=== PATIENT | female | born 1995 | race Caucasian/White ===

== ENCOUNTER 2018-06-08 12:35 | Emergency (ER) | payer MEDICAID, SELFPAY ==
[2018-06-08 12:49] VITALS: BP 123/76; PULSE 61; RESP 18; TEMP 36.7; O2SAT 98
--- NOTE | 2018-06-08 13:54 | DI.REPORT_ITS ---
SYMPTOMS/DIAGNOSIS: COUGH, FEVER, ? PNEUMONIA CHEST X-RAY, PA AND LATERAL: No priors. The heart size and pulmonary vascular are within normal limits. There is a mild pectus excavatum deformity. The lungs are clear. No effusions or pneumothoraces are identified. The bones are intact. IMPRESSION: No acute pulmonary process.
--- NOTE | 2018-06-08 14:05 | ED.GENADUL ---
Disposition Clinical Impression: Sinusitis Disposition: HOME Condition: Stable Instructions: Sinusitis (ED) Additional Instructions: You may take ibuprofen and Flonase to help relieve your pain and discomfort. Otherwise take antibiotics until fully complete and follow-up with your primary care provider if not improving in the next week. Get plenty of rest and stay well-hydrated during illness. Prescriptions: Amoxicillin/Potassium Clav [Augmentin 875-125 Tablet] 1 each PO BID #14 tablet Referrals: Winter Mars, TACOS [Primary Care Provider] - 1 week (If not improving over the next week please follow-up with your primary care provider for reassessment.) Forms: Work Release Medical Decision Making - Radiology Data Radiology results: report reviewed, image reviewed - Medical Decision Making Patient presenting to the emergency department for chief complaint of worsening cold-like symptoms that are been going on for 14 days. Patient reports using multiple wrve-gwi-xwfnbgx pain medications. Physical exam is significant for sinus tenderness and anterior cervical lymphadenopathy. With patient stating worsening cough that is productive I do feel that radiological imaging of the chest may be beneficial to look for a slight pneumonia but lung sounds at this point are clear and vital signs are stable. Otherwise I feel that patient has a sinusitis that given a recurrence of fever after 10 days of symptoms I do feel that she would benefit from antibiotics. After review of chest x-ray that shows no acute findings patient was placed upon Augmentin twice daily for 1 week and recommended to take ibuprofen and Flonase for symptomatic control. Patient was given a work note for the next 2 days to allow the antibiotic to begin its effect. Patient was encouraged to follow-up with her primary care provider if not improving after the antibiotics are completed or to return for any new or worsening symptoms. After discussion of diagnosis and plan of care with patient patient agreed and stated no further needs, questions, or concerns at this time. History of Present Illness - General Chief complaint: RespSymp Stated complaint: PNEUMONIA Time Seen by Provider: 06/08/18 13:38 Source: patient, RN notes reviewed Mode of arrival: ambulatory Limitations: no limitations - History of Present Illness Initial comments: Patient reports 2 weeks ago she began having sinus pressure, congestion, earache, and sore throat. Then approximately 4 days ago she began worsening in her symptoms having fever and chills, significant malaise, and cough. Over the past couple days she has noticed a worsening cough, that is productive with yellow phlegm, and worsening sinus pressure. Patient reports taking multiple espm-dan-vukxjmu medications which have not provided her any relief of her symptoms. Onset/Timin -: week(s) Location: head, chest Severity scale (1-10): 6 Quality: aching Consistency: constant Improves with: none Worsens with: none Associated Symptoms: denies other symptoms Treatments Prior to Arrival: none - Related Data Acetaminophen [Tylenol] 650 mg PO Q4H PRN PRN tab 11/07/17 Amoxicillin/Potassium Clav [Augmentin 875-125 Tablet] 1 each PO BID #14 tablet 06/08/18 Allergies Allergy/AdvReac Type Severity Reaction Status Date / Time meperidine HCl [From Demerol] Allergy Intermediate Swelling/Ed Unverified 05/06/18 10:49 chaim Review of Systems Constitutional: see HPI Eyes: denies: eye discharge ENT: as per HPI, ear pain, throat pain, congestion Respiratory: cough, shortness of breath. denies: SOB with excertion, wheezing Cardiovascular: denies: chest pain Gastrointestinal: denies: abdominal pain, nausea Skin: denies: rash Past Medical History - Past Medical History Medical history: no medical history Surgical history: non-contributory - Social History Smoking status: current some day smoker Alcohol use: rarely Drug use: none Living Situation: lives with family General Exam - General Limitations: no limitations General appearance: alert, in no apparent distress - Head Head exam: Present: atraumatic, normocephalic - Eye Eye exam: Present: PERRL, EOMI. Absent: scleral icterus, conjunctival injection, nystagmus Pupils: Present: normal accommodation - ENT ENT exam: Present: normal orophraynx, mucous membranes moist, TM's normal bilaterally, normal external ear exam, other (Patient has significant frontal and maxillary sinus tenderness, nasal congestion) - Neck Neck exam: Present: full ROM, lymphadenopathy (Anterior cervical). Absent: meningismus - Respiratory Respiratory exam: Present: normal lung sounds bilaterally. Absent: respiratory distress, wheezes, rales, rhonchi, stridor - Cardiovascular Cardiovascular Exam: Present: regular rate, normal rhythm, normal heart sounds - Neurological Exam Neurological exam: Present: alert, oriented X3. Absent: altered - Skin Skin exam: Present: warm, dry, normal color. Absent: cyanosis, diaphoretic, pallor, mottled Course Vital Signs - 24 hr 06/08/18 12:49 Temperature 36.7 C Pulse 61 Respiratory 18 Rate Blood Pressure 123/76 Pulse Oximetry 98
--- NOTE | 2018-06-08 14:08 | ED.GENADUL_ITS ---
Disposition Clinical Impression: Sinusitis Disposition: HOME Condition: Stable Instructions: Sinusitis (ED) Additional Instructions: You may take ibuprofen and Flonase to help relieve your pain and discomfort. Otherwise take antibiotics until fully complete and follow-up with your primary care provider if not improving in the next week. Get plenty of rest and stay well-hydrated during illness. Prescriptions: Amoxicillin/Potassium Clav [Augmentin 875-125 Tablet] 1 each PO BID #14 tablet Referrals: Winter Mars, TACOS [Primary Care Provider] - 1 week (If not improving over the next week please follow-up with your primary care provider for reassessment.) Forms: Work Release Medical Decision Making - Radiology Data Radiology results: report reviewed, image reviewed - Medical Decision Making Patient presenting to the emergency department for chief complaint of worsening cold-like symptoms that are been going on for 14 days. Patient reports using multiple zekz-ekh-fnkqmju pain medications. Physical exam is significant for sinus tenderness and anterior cervical lymphadenopathy. With patient stating worsening cough that is productive I do feel that radiological imaging of the chest may be beneficial to look for a slight pneumonia but lung sounds at this point are clear and vital signs are stable. Otherwise I feel that patient has a sinusitis that given a recurrence of fever after 10 days of symptoms I do feel that she would benefit from antibiotics. After review of chest x-ray that shows no acute findings patient was placed upon Augmentin twice daily for 1 week and recommended to take ibuprofen and Flonase for symptomatic control. Patient was given a work note for the next 2 days to allow the antibiotic to begin its effect. Patient was encouraged to follow-up with her primary care provider if not improving after the antibiotics are completed or to return for any new or worsening symptoms. After discussion of diagnosis and plan of care with patient patient agreed and stated no further needs, questions, or concerns at this time. History of Present Illness - General Chief complaint: RespSymp Stated complaint: PNEUMONIA Time Seen by Provider: 06/08/18 13:38 Source: patient, RN notes reviewed Mode of arrival: ambulatory Limitations: no limitations - History of Present Illness Initial comments: Patient reports 2 weeks ago she began having sinus pressure, congestion, earache , and sore throat. Then approximately 4 days ago she began worsening in her symptoms having fever and chills, significant malaise, and cough. Over the past couple days she has noticed a worsening cough, that is productive with yellow phlegm, and worsening sinus pressure. Patient reports taking multiple uxfb-mvg-xeltndl medications which have not provided her any relief of her symptoms. Onset/Timin -: week(s) Location: head, chest Severity scale (1-10): 6 Quality: aching Consistency: constant Improves with: none Worsens with: none Associated Symptoms: denies other symptoms Treatments Prior to Arrival: none - Related Data Acetaminophen [Tylenol] 650 mg PO Q4H PRN PRN tab 11/07/17 Amoxicillin/Potassium Clav [Augmentin 875-125 Tablet] 1 each PO BID #14 tablet 06/08/18 Allergies Allergy/AdvReac Type Severity Reaction Status Date / Time meperidine HCl [From Demerol] Allergy Intermediate Swelling/Ed Unverified 10:49 chaim Review of Systems Constitutional: see HPI Eyes: denies: eye discharge ENT: as per HPI, ear pain, throat pain, congestion Respiratory: cough, shortness of breath. denies: SOB with excertion, wheezing Cardiovascular: denies: chest pain Gastrointestinal: denies: abdominal pain, nausea Skin: denies: rash Past Medical History - Past Medical History Medical history: no medical history Surgical history: non-contributory - Social History Smoking status: current some day smoker Alcohol use: rarely Drug use: none Living Situation: lives with family General Exam - General Limitations: no limitations General appearance: alert, in no apparent distress - Head Head exam: Present: atraumatic, normocephalic - Eye Eye exam: Present: PERRL, EOMI. Absent: scleral icterus, conjunctival injection , nystagmus Pupils: Present: normal accommodation - ENT ENT exam: Present: normal orophraynx, mucous membranes moist, TM's normal bilaterally, normal external ear exam, other (Patient has significant frontal and maxillary sinus tenderness, nasal congestion) - Neck Neck exam: Present: full ROM, lymphadenopathy (Anterior cervical). Absent: meningismus - Respiratory Respiratory exam: Present: normal lung sounds bilaterally. Absent: respiratory distress, wheezes, rales, rhonchi, stridor - Cardiovascular Cardiovascular Exam: Present: regular rate, normal rhythm, normal heart sounds - Neurological Exam Neurological exam: Present: alert, oriented X3. Absent: altered - Skin Skin exam: Present: warm, dry, normal color. Absent: cyanosis, diaphoretic, pallor, mottled Course Vital Signs - 24 hr 06/08/18 12:49 Temperature 36.7 C Pulse 61 Respiratory 18 Rate Blood Pressure 123/76 Pulse Oximetry 98
[2018-06-08] MEDS: Amoxicillin 875/Clav. 125 TAB PO (14:09)
[2018-06-08 14:13] VITALS: BP 122/74; PULSE 61; RESP 18; TEMP 36.7; O2SAT 98
== END 2018-06-08 14:15 | disposition home or self-care (01) ==
LOC: ER 02-04 13:37
PROVIDERS: Emergency Provider Student in an Organized Health Care Education/Training Program
DX: J01.90 Acute sinusitis, unspecified (principal); R59.0 Localized enlarged lymph nodes; R50.9 Fever, unspecified; F17.210 Nicotine dependence, cigarettes, uncomplicated
CPT/HCPCS: 81025; 99283; 71046

== ENCOUNTER 2018-07-19 09:47 | Outpatient (CLI) | payer MEDICAID, SELFPAY ==
[2018-07-20 11:38] LABS: *AMPHETAMINES SCREEN URINE Negative (Negative); *BARBITURATES SCREEN URINE Negative (Negative); *BENZODIAZEPINES SCREEN URINE Negative (Negative); Cannabinoids THC POSITIVE (Negative); Cocaine Screen,Urine Negative (Negative); METHADONE URINE SCREEN Negative (Negative); OPIATES URINE SCREEN Negative (Negative)
[2018-07-20 11:41] LABS: Tricyclic Antidepressants Negative (Negative)
[2018-07-23 07:27] LABS: Buprenorphine Negative; Norbuprenorphine Negative
== END 2018-07-19 10:07 ==
PROVIDERS: Visit Provider Advanced Practice Midwife
DX: Z34.91 Encounter for supervision of normal pregnancy, unspecified, first trimester (principal)
CPT/HCPCS: 80307; 87086

== ENCOUNTER 2018-07-19 15:20 | Outpatient (CLI) | payer MEDICAID, SELFPAY ==
[2018-07-19 16:02] LABS: Abs Immature Grans 0.06 k/cumm (0.0-0.09); Absolute Eosinophil Count 0.19 k/cumm (0.0-0.7); Absolute Neutrophil Count 12.27 k/cumm (1.2-6.7); Basophils % 0.3; Eosinophils % 1.2; HCT 37.9 % (36.0-46.0); HGB 12.9 g/dL (12.0-15.5); Immature Grans % 0.4; Lymphocytes % 12.8; Mean Corpuscular Volume 88.1 fL (80-95); Mean Platelet Volume 9.6 fL (8.0-11.0); Monocytes % 6.8; Neutrophils % 78.5; Platelet Count 452 x1000/uL (130-400); RBC Distribution Width 12.7 % (11.7-14.6); White Blood Cell Count 15.63 k/cumm (4.4-10.8)
[2018-07-19 16:04] LABS: Absolute Basophil Count 0.05 k/cumm (0.0-0.2); Absolute Monocyte Count 1.06 k/cumm (0.11-0.7)
[2018-07-19 16:35] LABS: TSH (W/Ref FT4) 2.21 uIU/mL (0.358-3.74)
[2018-07-20 09:30] LABS: Hepatitis B Surface Ag Negative (NEGAT)
[2018-07-20 10:35] LABS: HIV-1/2 Ag & Ab Screen Negative (NEGAT)
[2018-07-20 11:02] LABS: Hepatitis C Ab w Rflx HCV PCR Negative (NEGAT)
[2018-07-20 11:31] LABS: Rubella IgG Ab (UVM) Positive; Syphilis Serology (RPR) Negative (Negative); Varicella IgG Antibody Negative
== END 2018-07-19 15:40 ==
PROVIDERS: Visit Provider Advanced Practice Midwife
DX: Z34.91 Encounter for supervision of normal pregnancy, unspecified, first trimester (principal); Z01.84 Encounter for antibody response examination; Z11.59 Encounter for screening for other viral diseases; Z11.3 Encounter for screening for infections with a predominantly sexual mode of transmission; Z11.4 Encounter for screening for human immunodeficiency virus [HIV]
CPT/HCPCS: 36415; 80055; 86787; 86803; 86850; 86900; 86901; 87340; 87389; 84443; 86592; 86762

== ENCOUNTER 2018-08-16 16:02 | Outpatient (REF) | payer MEDICAID, SELFPAY ==
[2018-08-18 15:38] LABS: Chlamydia Result Negative; GC Result Negative; Specimen Description URINE
[2018-08-23 09:54] LABS: Buprenorphine Negative; Norbuprenorphine Negative
== END 2018-08-16 16:22 ==
LOC: LBN 16:02
PROVIDERS: Visit Provider Advanced Practice Midwife
DX: Z34.91 Encounter for supervision of normal pregnancy, unspecified, first trimester (principal); Z11.3 Encounter for screening for infections with a predominantly sexual mode of transmission
CPT/HCPCS: 80307; 87491; 87591

== ENCOUNTER 2018-09-15 09:33 | Outpatient (CLI) | payer MEDICAID, SELFPAY ==
[2018-09-17 11:28] LABS: AFP 17.1 ng/mL; Cigarette smoking status non-smoker; GA used in risk estimate Scan estimate; INHIBIN 180 pg/mL; IVF Pregnancy No; Initial or repeat testing Initial testing; Insulin dependent diabetes No; Maternal Weight 173 lbs; Number of Fetuses 1; Physician Phone Number 802-748-7300; Prev Down(T21)/Trisomy Pregnan No; Prev Pregnancy w/NTD No; RECOMMENDED FOLLOW UP None.; Results Summary Normal risk; hCG, TOTAL 23.2 IU/mL; hCG, TOTAL MoM 1.01 MoM; uE3 0.65 ng/mL; uE3 MoM 0.55 MoM
== END 2018-09-15 09:53 ==
PROVIDERS: Visit Provider Advanced Practice Midwife
DX: Z34.92 Encounter for supervision of normal pregnancy, unspecified, second trimester (principal)
CPT/HCPCS: 36415; 81511

== ENCOUNTER 2018-09-21 01:08 | Outpatient (CLI) | payer MEDICAID, SELFPAY ==
--- NOTE | 2018-09-21 08:20 | DI.US_ITS ---
SYMPTOMS/DIAGNOSIS: 18-WEEK SURVEY, Z34.90 OB ULTRASOUND: Many abnormalities cannot be diagnosed. A normal exam does not exclude a congenital anomaly. Radiology No. [id number] LMP: Exam Date: 09/21/18 [facility] wks days on EDC ([facility]) 02/20/19 Confirmed: HISTORY: ---- PREDICTED GESTATIONAL AGE NUMBER 18+2 weeks with a range of 17+2 weeks to 19+2 weeks. 1 Determined by_X__1ST US___LMP___HISTORY PLACENTA PRESENTATION Grade I Cephalic___ Anterior___Posterior___ Breech____ Right Left Transverse(head right___ Fundal___Low-lying___Previa___ Transverse(head left___ Varying__X____ BIOMETRY AMNIOTIC FLUID BPD: 41 mm 18+3 weeks Normal HC: 154 mm 18+2 weeks AC: 128 mm 18+3 weeks FL: 27 mm 18+2 weeks AMNIOTIC FLUID INDEX >26 WK CRL: mm weeks Cisterna Magna: 5 mm CI: 84 RUQ: LUQ Cerebellum: 1.8 cm EFW: 234 grams Percentile RLQ: LLQ Total: cms Composite AGE= 18+3 wks EDC by US: 02/19/19 BIOPHYSICAL PROFILE ANATOMY IDENTIFIED SCORE 0/2 Heart: 4-Chamber_X__Rate:BPM 140 LVOT:____X RVOT:___X Amniotic Fluid(>2cms)____ Stomach:__X Kidneys:___X____ Respirations (>30 secs) Bladder:___X Post. Fossa:__X Body Flex/Extension 3-vessel cord:__X Ventricles:___X Cord insertion:__X___ Lips:_X___ Extremity Flex/Extension Spinal morphology:__X Nose:_X___ Total Score= Palate:___X____ NS=not seen COMMENTS: There is a single intrauterine gestation in variable positions. The placenta is posterior. The biometric measurements correspond to 18 weeks 3 days. No abnormalities are seen. The amount of amniotic fluid appears normal. IMPRESSION: survey is within normal limits.
== END 2018-09-21 01:28 ==
PROVIDERS: Visit Provider Advanced Practice Midwife
DX: Z34.92 Encounter for supervision of normal pregnancy, unspecified, second trimester (principal)
CPT/HCPCS: 76805

== ENCOUNTER 2018-12-06 10:51 | Outpatient (CLI) | payer MEDICAID, SELFPAY ==
[2018-12-06 11:18] LABS: HCT 37.5 % (36.0-46.0); HGB 12.6 g/dL (12.0-15.5); Mean Corp. HGB Concentration 33.6 g/dL (32.0-36.0); Mean Corpuscular Hemoglobin 30.5 pg (27.0-33.0); Mean Corpuscular Volume 90.8 fL (80-95); Mean Platelet Volume 9.5 fL (8.0-11.0); Platelet Count 431 x1000/uL (130-400); RBC 4.13 m/cumm (4.00-5.20); RBC Distribution Width 12.9 % (11.7-14.6); White Blood Cell Count 15.61 k/cumm (4.4-10.8)
[2018-12-06 11:23] LABS: Glucose,1 Hr (Glucola) 99 mg/dL (80-140)
== END 2018-12-06 11:11 ==
PROVIDERS: Visit Provider Advanced Practice Midwife
DX: Z34.93 Encounter for supervision of normal pregnancy, unspecified, third trimester (principal)
CPT/HCPCS: 36415; 82950; 85027

== ENCOUNTER 2018-12-24 14:02 | Observation (INO) | payer MEDICAID, SELFPAY ==
[2018-12-24 14:05] VITALS: BP 144/64; PULSE 48; RESP 16; TEMP 36.4; O2SAT 100
[2018-12-24] MEDS: Ondansetron O.D.T. 4 MG TABEF PO (14:29)
[2018-12-24] MEDS: Normal Saline 1,000 ML 1000 ML IV (14:29)
--- NOTE | 2018-12-24 14:29 | W.ED.GENAD ---
Discharge Plan Disposition Patient Disposition: [facility] INPATIENT Condition: Stable Discharge Details Chief Complaint: Nausea/Vomit/Diar Reason For Visit: NAUSEA VOMITING DIARRHEA, Admit Date/Time: 12/24/18 14:45 Admit Provider: Manuel Cintron Attending Provider: Manuel Cintron Primary Care Provider: Rose,Local ED Provider: Richard Horta Discharge Data Discharge Date/Time-TO BE ENTERED AT DEPARTURE: 12/24/18 14:59 Medical Decision Making pt presenting to ED for complaint of n/v/d. Patient reports that this started at approximately 2am . pt is due 02/20/19. There is some variability in obtaining heart tones and difficult to fully obtain heart tones. palpation of the abdomen shows no right lower quadrant tenderness no positive Avina sign but palpation of the abdomen does seem to make suprapubic pain more intensified which patient did not initially state. Labs and urinalysis was obtained. 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 Talk to Dr. Cintron in regards to patient presentation. He requested patient immediately brought upstairs for stress testing. I informed him that we had started abdominal workup with labs IV fluids and urinalysis which he stated he would follow-up on. Orders were placed and patient sent up to center. HPI General Mode of arrival: ambulatory. Date/Time Provider Initiated Documentation: 12/24/18 14:09. Limitations to Documentation: no limitations. Information obtained by: patient and RN notes reviewed. History of Present Illness 23 year old F presents to the emergency department with the chief complaint of Nausea vomiting diarrhea , described as moderate, Quality is described as other (Denies abdominal pain), Patient started experiencing this hour(s) (12) and it has been constant. No exacerbating factors reported . Patient did receive the following treatments prior to arrival, none Related Data Home Medications Medication Instructions Recorded Confirmed vitamins-iron fumarate 65 1 tab PO DAILY 07/12/18 12/24/18 mg iron-folic acid 1 mg tablet aspirin 81 mg tablet,delayed 81 mg PO DAILY #90 tab 07/19/18 12/24/18 release citalopram 20 mg tablet 30 mg PO DAILY #30 tab 12/23/18 12/24/18 promethazine 25 mg tablet 25 mg PO Q6H PRN #10 tab 12/24/18 Previous Rx's Medication Instructions Recorded aspirin 81 mg tablet,delayed 81 mg PO DAILY #90 tab 07/19/18 release citalopram 20 mg tablet 30 mg PO DAILY #30 tab 12/23/18 promethazine 25 mg tablet 25 mg PO Q6H PRN #10 tab 12/24/18 Allergies Allergy/AdvReac Type Severity Reaction Status Date / Time meperidine HCl [From Demerol] Allergy Intermediate Swelling/Ed Unverified 12/23/18 14:40 chaim General Stated Complaint: Nausea/Vomit/Diar KATELYN: 3 Review of Systems Constitutional Denies chills, Denies fever(s) and Reports poor appetite Cardiovascular Denies chest pain and Denies dyspnea Respiratory Denies cough and Denies dyspnea Gastrointestinal Reports as per HPI, Denies abdominal pain, Denies melena, Denies change in bowel habits, Denies constipation, Reports diarrhea, Reports nausea and Reports vomiting Genitourinary Denies hematuria, Denies urinary incontinence, Denies urinary hesitancy and Denies urinary urgency Integumentary/Breasts Denies rash PFSH Medical History Depression (Chronic) Bradycardia 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/2013) Irregular heart beat Surgical History Spinal L4and L5 repair Family History Mother Essential hypertension Hypothyroidism Mental disorder Father Substance abuse Alcohol abuse Sister Leukemia, acute, in remission Social History Smoking/Tobacco Use Status: Never Alcohol Intake: never Drug use: Never Substance use type: does not use Household members: significant other and children Duration: 15-30 minutes/day Frequency: 3-4 times per week Do you feel safe at home: Yes Do you feel safe in your relationship?: Yes History History 2 Para 1 Hx # Term Pregnancies 1 Multiple births 0 Hx # Pregnancies 0 Ectopic pregnancies 0 AB induced 0 Hx Number of Living Children 1 AB spontaneous 0 Exam Const General: cooperative Orientation: alert, awake and oriented x3 Resp Effort & Inspection: normal respiratory effort and able to speak in complete sentences Auscultation: clear to auscultation bilaterally Cardio Rate: bradycardic Rhythm: abnormal rhythm irregularly irregular Heart Sounds: S1 normal, S2 normal, no click, no gallops, no murmurs and no rubs GI Palpation: soft, no hepatosplenomegaly, not firm, no guarding, no masses, no pulsatile masses, not rigid, no splenomegaly and tender suprapubicly; not at McBurney's point and Avina's sign negative Auscultation: normal bowel sounds Back/Spine/Pelvis Back: no CVA tenderness Neuro General: alert, awake, oriented x3, gait normal and moves all extremities Course Vital Signs Temperature 36.4 C L 12/24/18 14:05 Pulse 48 L 12/24/18 14:05 Respiratory Rate 16 12/24/18 14:05 Blood Pressure 144/64 H 12/24/18 14:05 Pulse Oximetry 100 12/24/18 14:05 Temperature 36.4 C L 12/24/18 14:05 Temperature Source Skin 12/24/18 14:05 Pulse 48 L 12/24/18 14:05 Respiratory Rate 16 12/24/18 14:05 Respiratory Effort Non-Labored 12/24/18 14:10 Blood Pressure 144/64 H 12/24/18 14:05 Blood Pressure Position Sitting 12/24/18 14:05 Pulse Oximetry 100 12/24/18 14:05 Oxygen Delivery Method Room Air 12/24/18 14:05 Oxygen Flow Rate 0 12/24/18 14:05
--- NOTE | 2018-12-24 14:32 | ED.GENADUL_ITS ---
Discharge Plan Disposition Patient Disposition: [facility] INPATIENT Condition: Stable Discharge Details Chief Complaint: Nausea/Vomit/Diar Reason For Visit: NAUSEA VOMITING DIARRHEA, Admit Date/Time: 12/24/18 14:45 Admit Provider: Manuel Cintron Attending Provider: Manuel Cintron Primary Care Provider: Rose,Local ED Provider: Richard Horta Discharge Data Discharge Date/Time-TO BE ENTERED AT DEPARTURE: 12/24/18 14:59 Medical Decision Making pt presenting to ED for complaint of n/v/d. Patient reports that this started at approximately 2am . pt is due 02/20/19. There is some variability in obtaining heart tones and difficult to fully obtain heart tones. palpation of the abdomen shows no right lower quadrant tenderness no positive Avina sign but palpation of the abdomen does seem to make suprapubic pain more intensified which patient did not initially state. Labs and urinalysis was obtained. While patient has what appears to be an abdominal process going on I did contact [employer] PROFESSOR given gestational age. Talk to Dr. Cintron in regards to patient presentation. He requested patient immediately brought upstairs for stress testing. I informed him that we had started abdominal workup with labs IV fluids and urinalysis which he stated he would follow-up on. Orders were placed and patient sent up to center. HPI General Mode of arrival: ambulatory . Date/Time Provider Initiated Documentation: 12/24/18 14:09 . Limitations to Documentation: no limitations . Information obtained by: patient and RN notes reviewed . History of Present Illness 23 year old F presents to the emergency department with the chief complaint of Nausea vomiting diarrhea , described as moderate, Quality is described as other (Denies abdominal pain), Patient started experiencing this hour(s) (12) and it has been constant. No exacerbating factors reported . Patient did receive the following treatments prior to arrival, none Related Data Home Medications Medication Instructions Recorded Confirmed vitamins-iron fumarate 65 1 tab PO DAILY 07/12/18 12/24/18 mg iron-folic acid 1 mg tablet aspirin 81 mg tablet,delayed 81 mg PO DAILY #90 tab 07/19/18 12/24/18 release citalopram 20 mg tablet 30 mg PO DAILY #30 tab 12/23/18 12/24/18 promethazine 25 mg tablet 25 mg PO Q6H PRN #10 tab 12/24/18 Previous Rx's Medication Instructions Recorded aspirin 81 mg tablet,delayed 81 mg PO DAILY #90 tab 07/19/18 release citalopram 20 mg tablet 30 mg PO DAILY #30 tab 12/23/18 promethazine 25 mg tablet 25 mg PO Q6H PRN #10 tab 12/24/18 Allergies Allergy/AdvReac Type Severity Reaction Status Date / Time meperidine HCl [From Demerol] Allergy Intermediate Swelling/Ed Unverified 12/23/18 14:40 chaim General Stated Complaint: Nausea/Vomit/Diar KATELYN: 3 Review of Systems Constitutional Denies chills, Denies fever(s) and Reports poor appetite Cardiovascular Denies chest pain and Denies dyspnea Respiratory Denies cough and Denies dyspnea Gastrointestinal Reports as per HPI, Denies abdominal pain, Denies melena, Denies change in bowel habits, Denies constipation, Reports diarrhea, Reports nausea and Reports vomiting Genitourinary Denies hematuria, Denies urinary incontinence, Denies urinary hesitancy and Denies urinary urgency Integumentary/Breasts Denies rash PFSH Medical History Depression (Chronic) Bradycardia 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/2013) Irregular heart beat Surgical History Spinal L4and L5 repair Family History Mother Essential hypertension Hypothyroidism Mental disorder Father Substance abuse Alcohol abuse Sister Leukemia, acute, in remission Social History Smoking/Tobacco Use Status: Never Alcohol Intake: never Drug use: Never Substance use type: does not use Household members: significant other and children Duration: 15-30 minutes/day Frequency: 3-4 times per week Do you feel safe at home: Yes Do you feel safe in your relationship?: Yes History History 2 Para 1 Hx # Term Pregnancies 1 Multiple births 0 Hx # Pregnancies 0 Ectopic pregnancies 0 AB induced 0 Hx Number of Living Children 1 AB spontaneous 0 Exam Const General: cooperative Orientation: alert, awake and oriented x3 Resp Effort & Inspection: normal respiratory effort and able to speak in complete sentences Auscultation: clear to auscultation bilaterally Cardio Rate: bradycardic Rhythm: abnormal rhythm irregularly irregular Heart Sounds: S1 normal, S2 normal, no click, no gallops, no murmurs and no rubs GI Palpation: soft, no hepatosplenomegaly, not firm, no guarding, no masses, no pulsatile masses, not rigid, no splenomegaly and tender suprapubicly; not at McBurney's point and Avina's sign negative Auscultation: normal bowel sounds Back/Spine/Pelvis Back: no CVA tenderness Neuro General: alert, awake, oriented x3, gait normal and moves all extremities Course Vital Signs Temperature 36.4 C L 12/24/18 14:05 Pulse 48 L 12/24/18 14:05 Respiratory Rate 16 12/24/18 14:05 Blood Pressure 144/64 H 12/24/18 14:05 Pulse Oximetry 100 12/24/18 14:05 Temperature 36.4 C L 12/24/18 14:05 Temperature Source Skin 12/24/18 14:05 Pulse 48 L 12/24/18 14:05 Respiratory Rate 16 12/24/18 14:05 Respiratory Effort Non-Labored 12/24/18 14:10 Blood Pressure 144/64 H 12/24/18 14:05 Blood Pressure Position Sitting 12/24/18 14:05 Pulse Oximetry 100 12/24/18 14:05 Oxygen Delivery Method Room Air 12/24/18 14:05 Oxygen Flow Rate 0 12/24/18 14:05
[2018-12-24 14:37] LABS: Abs Immature Grans 0.22 k/cumm (0.0-0.09); HGB 13.5 g/dL (12.0-15.5); Mean Corp. HGB Concentration 34.6 g/dL (32.0-36.0); Mean Corpuscular Volume 89.7 fL (80-95); Mean Platelet Volume 9.9 fL (8.0-11.0); Platelet Count 450 x1000/uL (130-400); RBC 4.35 m/cumm (4.00-5.20); RBC Distribution Width 12.4 % (11.7-14.6); White Blood Cell Count 23.38 k/cumm (4.4-10.8)
[2018-12-24 14:47] LABS: ALT 10 U/L (12-78); AST 14 U/L (15-37); Albumin 3.4 g/dL (3.4-5.0); Alkaline Phosphatase 129 U/L (46-116); Anion Gap 16.8 mmol/L (3-11); BUN 8 mg/dL (7-18); Bilirubin, Total 0.4 mg/dL (0.2-1.0); CO2 20.2 mmol/L (21.0-32.0); CREATININE 0.62 mg/dL (0.55-1.02); Calcium 9.3 mg/dL (8.5-10.1); Chloride 99 mmol/L (98-107); Glucose 122 mg/dL (70-100); Magnesium 1.5 mg/dL (1.8-2.4); Potassium 3.2 mmol/L (3.5-5.1); Sodium 136 mmol/L (136-145); Total Protein 7.8 g/dL (6.4-8.2)
[2018-12-24 14:54] VITALS: BP 149/70; PULSE 50; O2SAT 100
[2018-12-24 14:55] LABS: Absolute Lymphocyte Count 1.17 k/cumm (1.2-3.4); Absolute Monocyte Count 0.47 k/cumm (0.11-0.7); Absolute Neutrophil Count 21.74 k/cumm (1.2-6.7); Diff Comment Manual Differential; RBC Morphology Normal
[2018-12-24 14:58] LABS: Bilirubin Negative (Negative); Blood Negative (Negative); Clarity Clear; Glucose Negative (Negative); Ketones >=160 mg/dL (Negative); Leukocyte Esterase Negative (Negative); Nitrite Negative (Negative); Specific Gravity 1.025 (1.005-1.025); Urobilinogen 0.2 EU/dL (Up TO 0.2)
[2018-12-24 14:59] VITALS: BP 149/70; PULSE 50; RESP 16; TEMP 36.4; O2SAT 100
[2018-12-24 15:11] LABS: Lipase 75 U/L (73-393)
[2018-12-24 15:15] LABS: Bacteria Few HPF (Negative); C & S Indicated? Yes; Casts 0-2 Hyaline LPF (Negative); Crystals Negative HPF (Negative); Epithelial Cells Few HPF (Negative); Mucus Moderate (Negative); Other Cells Few Transitional (Negative); RBC Negative (0-2)
[2018-12-24] MEDS: Normal Saline 50 ML (16:28)
[2018-12-24] MEDS: Lactated Ringers 500 ML IV (16:29)
[2018-12-24] MEDS: Normal Saline 50 ML 200 ML (19:16)
[2018-12-24] MEDS: Promethazine 25 MG TAB PO (20:48)
== END 2018-12-24 21:00 | disposition home or self-care (01) ==
LOC: ER 14:59 → OBS 15:16
PROVIDERS: Admitting Provider Obstetrics & Gynecology; Emergency Provider Nurse Practitioner Family; Visit Provider Obstetrics & Gynecology
DX: O26.893 Other specified pregnancy related conditions, third trimester (principal); R11.0 Nausea; Z3A.32 32 weeks gestation of pregnancy
CPT/HCPCS: 36415; 80053; 83690; 96360; 96361; 96365; 99285; 81003; 81015; 82565; 83735; 84156; 85025; 87086; 99284; G0378

== ENCOUNTER 2019-01-08 07:30 | Outpatient (CLI) | payer MEDICAID, SELFPAY ==
[2019-01-08] MEDS: DEXTROSE 5%-LACTATED RINGERS 1,000 ML 1000 ML IV ×3 (08:30→10:55)
[2019-01-08] MEDS: Ondansetron 4 MG/2 ML VIAL IVP (09:01)
[2019-01-08] MEDS: Normal Saline Flush 10 ML SYR (09:02)
== END 2019-01-08 07:50 ==
PROVIDERS: Visit Provider Advanced Practice Midwife
DX: O26.893 Other specified pregnancy related conditions, third trimester (principal); E86.0 Dehydration; Z3A.33 33 weeks gestation of pregnancy
CPT/HCPCS: 96360; 96361; 59025; G0378; J2405

== ENCOUNTER 2019-01-10 07:40 | Observation (INO) | payer MEDICAID, SELFPAY ==
[2019-01-10] MEDS: DEXTROSE 5%-LACTATED RINGERS 1,000 ML 1000 ML IV (09:23)
[2019-01-10] MEDS: THIAMINE 100 MG in Normal Saline 100 ML 200 MG IVPB (09:24)
[2019-01-10 10:10] LABS: Anion Gap 11.6 mmol/L (3-11); CO2 23.4 mmol/L (21.0-32.0); Chloride 102 mmol/L (98-107); Potassium 3.2 mmol/L (3.5-5.1); Sodium 137 mmol/L (136-145)
[2019-01-10] MEDS: DEXTROSE 5%-LACTATED RINGERS 1,000 ML 500 ML IV (10:33)
[2019-01-10] MEDS: Ondansetron 4 MG/2 ML VIAL 8 MG IVP (12:32)
[2019-01-10] MEDS: Lactated Ringers 1,000 ML 200 ML IV (14:53)
[2019-01-10 16:32] LABS: HCT 36.3 % (36.0-46.0); HGB 12.4 g/dL (12.0-15.5); Mean Corp. HGB Concentration 34.2 g/dL (32.0-36.0); Mean Corpuscular Hemoglobin 30.5 pg (27.0-33.0); Mean Corpuscular Volume 89.2 fL (80-95); Mean Platelet Volume 9.9 fL (8.0-11.0); Platelet Count 351 x1000/uL (130-400); RBC 4.07 m/cumm (4.00-5.20); RBC Distribution Width 12.4 % (11.7-14.6)
[2019-01-10] MEDS: Normal Saline Flush 10 ML SYR IVP (16:33)
[2019-01-10] MEDS: Metoclopramide 10 MG/2 ML VIAL IVP (16:33)
[2019-01-10 16:38] LABS: Anion Gap 12.8 mmol/L (3-11); CO2 23.2 mmol/L (21.0-32.0); Chloride 102 mmol/L (98-107); Potassium 3.2 mmol/L (3.5-5.1); Sodium 138 mmol/L (136-145)
[2019-01-10 16:51] LABS: ALT 12 U/L (12-78); AST 12 U/L (15-37); Albumin 2.7 g/dL (3.4-5.0); Alkaline Phosphatase 122 U/L (46-116); Bilirubin, Total 0.3 mg/dL (0.2-1.0); CREATININE 0.45 mg/dL (0.55-1.02); Total Protein 6.5 g/dL (6.4-8.2); Uric Acid 3.7 mg/dL (2.6-6.0)
[2019-01-10] MEDS: Loperamide 2 MG CAP PO (18:44)
[2019-01-10 20:12] LABS: PROTEIN < 6.0 mg/dL
[2019-01-10 20:48] LABS: COMMENT (LAB VIEW ONLY) 25.37 mg/dL
[2019-01-10 22:38] LABS: *AMPHETAMINES SCREEN URINE Negative (Negative); *BARBITURATES SCREEN URINE Negative (Negative); *BENZODIAZEPINES SCREEN URINE Negative (Negative); Cannabinoids THC POSITIVE (Negative); Cocaine Screen,Urine Negative (Negative); METHADONE URINE SCREEN Negative (Negative); OPIATES URINE SCREEN Negative (Negative)
[2019-01-10 22:41] LABS: Tricyclic Antidepressants Negative (Negative)
== END 2019-01-10 19:59 | disposition home or self-care (01) ==
PROVIDERS: Advanced Practice Midwife; Admitting Provider Advanced Practice Midwife; Visit Provider Advanced Practice Midwife
DX: O99.613 Diseases of the digestive system complicating pregnancy, third trimester (principal); K52.9 Noninfective gastroenteritis and colitis, unspecified; E86.0 Dehydration; Z3A.34 34 weeks gestation of pregnancy; O99.820 Streptococcus B carrier state complicating pregnancy
CPT/HCPCS: 36415; 80051; 80076; 80307; 85027; 96360; 96361; 96365; 59025; 82565; 84156; 84550; G0378; J2405; J2765; J3490

== ENCOUNTER 2019-01-27 11:36 | Outpatient (REF) | payer MEDICAID, SELFPAY | END 2019-01-27 11:56 | LOC: LBN 11:36 | PROVIDERS: Visit Provider Advanced Practice Midwife | DX: Z34.93 Encounter for supervision of normal pregnancy, unspecified, third trimester (principal); Z36.85 Encounter for antenatal screening for Streptococcus B | CPT/HCPCS: 87081 ==

== ENCOUNTER 2019-01-27 12:52 | Outpatient (CLI) | payer MEDICAID, SELFPAY ==
--- NOTE | 2019-01-27 11:30 | DI.US_ITS ---
SYMPTOMS/DIAGNOSIS: SIZE </= DATES, , Z34.90 OB ULTRASOUND, LIMITED: Many abnormalities cannot be diagnosed. A normal exam does not exclude a congenital anomaly. Radiology No. [id number] LMP: Exam Date: 01/27/19 [facility] wks days on EDC ([facility]) 02/20/19 Confirmed: HISTORY: PREDICTED GESTATIONAL AGE NUMBER 36+4 weeks with a range of 35+4 weeks to 37+4 weeks. 1 Determined by___1STUS___LMP___HISTORY PLACENTA PRESENTATION Grade II Cephalic_X__ Anterior___Posterior_X__ Breech____ Right__X___ Left Transverse(head right___ Fundal___Low-lying___Previa___ Transverse(head left___ Varying BIOMETRY AMNIOTIC FLUID BPD: 86 mm 34+4 weeks Normal HC: 318 mm 35+5 weeks AC: 318 mm 35+5 weeks FL: 67 mm 34+2 weeks AMNIOTIC FLUID INDEX >26 WK CRL: mm weeks Cisterna Magna: mm CI: 82 RUQ: 3.67 LUQ: 2.49 Cerebellum: cm EFW: 2619 grams Percentile: RLQ: 1.15 LLQ: 2.28 Total: 9.6 cm Composite AGE= 35+1 wks EDC by US: 03/02/19 BIOPHYSICAL PROFILE ANATOMY IDENTIFIED SCORE 0/2 Heart: 4-Chamber___Rate:BPM 123 LVOT: RVOT: Amniotic Fluid(>2cms)____ Stomach: Kidneys: Respirations (>30 secs) Bladder: Post. Fossa: Body Flex/Extension 3 vessel cord: Ventricles: cord insertion: Lips:____ Extremity Flex/Extension spinal morphology: Nose: Total Score= Palate: NS=not seen COMMENTS: OB ultrasound was performed utilizing limited third trimester protocol. biometry is consistent with gestational age of 35 weeks 1 day and an EDC of 03/02/19. The estimated weight is 2619 g, which is at the 20th percentile for predicted gestational age. The fetus is in cephalic presentation. cardiac activity observed at a rate of 123 bpm. There is visually a normal quantity of amniotic fluid and the KEYANA is 10.
== END 2019-01-27 13:12 ==
PROVIDERS: Visit Provider Advanced Practice Midwife
DX: O26.843 Uterine size-date discrepancy, third trimester (principal); Z36.2 Encounter for other antenatal screening follow-up
CPT/HCPCS: 76816; 87081

== ENCOUNTER 2019-02-02 13:57 | Outpatient (CLI) | payer MEDICAID, SELFPAY ==
[2019-02-02 14:33] LABS: HCT 37.9 % (36.0-46.0); HGB 12.7 g/dL (12.0-15.5); Mean Corp. HGB Concentration 33.5 g/dL (32.0-36.0); Mean Corpuscular Hemoglobin 30.5 pg (27.0-33.0); Mean Corpuscular Volume 90.9 fL (80-95); Mean Platelet Volume 10.3 fL (8.0-11.0); Platelet Count 375 x1000/uL (130-400); RBC 4.17 m/cumm (4.00-5.20); White Blood Cell Count 14.06 k/cumm (4.4-10.8)
[2019-02-02 16:01] LABS: ALT 14 U/L (12-78); AST 11 U/L (15-37); Albumin 2.9 g/dL (3.4-5.0); Alkaline Phosphatase 153 U/L (46-116); Bilirubin, Direct 0.08 mg/dL (0.00-0.20); Bilirubin, Total 0.3 mg/dL (0.2-1.0); CREATININE 0.62 mg/dL (0.55-1.02); Total Protein 6.6 g/dL (6.4-8.2); Uric Acid 4.1 mg/dL (2.6-6.0)
== END 2019-02-02 14:17 ==
PROVIDERS: Visit Provider Advanced Practice Midwife
DX: Z34.93 Encounter for supervision of normal pregnancy, unspecified, third trimester (principal)
CPT/HCPCS: 36415; 80076; 85027; 82565; 84156; 84550

== ENCOUNTER 2019-02-02 15:23 | Outpatient (REF) | payer MEDICAID, SELFPAY ==
[2019-02-02 16:07] LABS: COMMENT (LAB VIEW ONLY) 319.54 mg/dL; PROTEIN 34.1 mg/dL
== END 2019-02-02 15:43 ==
LOC: LBN 15:23
PROVIDERS: Visit Provider Advanced Practice Midwife
DX: Z34.93 Encounter for supervision of normal pregnancy, unspecified, third trimester (principal)
CPT/HCPCS: 80076; 85027; 82565; 84156; 84550

== ENCOUNTER 2019-02-04 10:24 | Outpatient (CLI) | payer MEDICAID, SELFPAY | END 2019-02-04 10:44 | PROVIDERS: Visit Provider Advanced Practice Midwife | DX: O36.8130 Decreased fetal movements, third trimester, not applicable or unspecified (principal); Z3A.37 37 weeks gestation of pregnancy | CPT/HCPCS: 59025 ==

== ENCOUNTER 2019-02-12 06:31 | Inpatient (IN) | payer MEDICAID, SELFPAY ==
[2019-02-12] MEDS: Lactated Ringers 1,000 ML 120 ML IV (07:30)
[2019-02-12 07:41] VITALS: BP 199/95
[2019-02-12] MEDS: Labetalol 100 MG/20 ML VIAL 20 MG IVP (07:41)
[2019-02-12 07:55] LABS: Abs Immature Grans 0.14 k/cumm (0.0-0.09); Absolute Basophil Count 0.03 k/cumm (0.0-0.2); Absolute Eosinophil Count 0.14 k/cumm (0.0-0.7); Absolute Lymphocyte Count 1.61 k/cumm (1.2-3.4); Absolute Monocyte Count 1.06 k/cumm (0.11-0.7); Basophils % 0.2; HCT 40.6 % (36.0-46.0); HGB 13.7 g/dL (12.0-15.5); Lymphocytes % 11.7; Mean Corp. HGB Concentration 33.7 g/dL (32.0-36.0); Mean Corpuscular Hemoglobin 30.4 pg (27.0-33.0); Mean Platelet Volume 10.8 fL (8.0-11.0); Monocytes % 7.7; Neutrophils % 78.4; Platelet Count 369 x1000/uL (130-400); RBC 4.51 m/cumm (4.00-5.20); RBC Distribution Width 13.1 % (11.7-14.6); White Blood Cell Count 13.77 k/cumm (4.4-10.8)
[2019-02-12 07:58] LABS: ALT 17 U/L (12-78); AST 12 U/L (15-37); Albumin 2.7 g/dL (3.4-5.0); Alkaline Phosphatase 161 U/L (46-116); Anion Gap 10.1 mmol/L (3-11); BUN 7 mg/dL (7-18); Bilirubin, Direct 0.05 mg/dL (0.00-0.20); Bilirubin, Total 0.3 mg/dL (0.2-1.0); CO2 23.9 mmol/L (21.0-32.0); CREATININE 0.69 mg/dL (0.55-1.02); Chloride 100 mmol/L (98-107); Glucose 97 mg/dL (70-100); Potassium 3.7 mmol/L (3.5-5.1); Sodium 134 mmol/L (136-145); Total Protein 6.9 g/dL (6.4-8.2); Uric Acid 4.3 mg/dL (2.6-6.0)
[2019-02-12] MEDS: MAGNESIUM SULFATE 20 GM/500 ML BAG IV ×3 (08:01→19:32)
[2019-02-12] MEDS: Sodium Citrate 30 ML CUP (08:30)
--- NOTE | 2019-02-12 08:54 | HPE_ITS ---
Date of service: 02/12/19 Time of Service: 08:52 Assessment and Plan (1) Severe preeclampsia: Current visit: Yes Status: Acute Patient presented with severe preeclampsia and uncontrolled blood pressures. Laboratory studies were essentially normal. The patient had been given several doses of antihypertensive medications intravenously with little to no results. She was markedly symptomatic including severe headache and right upper quadrant pain. As she is remote from delivery and certainly there is con cerned of a prolonged induction I recommendation is to proceed with emergent section. I reviewed risks of surgery with the patient. All questions were answered and consent was obtained. The patient is started on magnesium sulfate infusion with a 4 g bolus and then 2 g/h thereafter. She has been provided several doses of IV labetalol. We will plan to maintain magnesium into the period. History of Present Illness Chief Complaint: Nausea and vomiting Narrative: 23 year old @ 38.6 weeks presents to labor and delivery with complaint of headache, nausea with vomiting, and RUQ abdominal pain. On initial evaluation her blood pressure was noted to be 199/98. Her last was complicated by severe preeclampsia diagnosed during and immediately after a rapid labor. On admission the patient was immediately started on magnesium sulfate and provided IV labetalol. She did not have a good response to two doses of antihypertensive medication. The patient denies contractions. Reports good movement to this point. The tracing on admission was reactive. 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 What type of physical activity do you participate in: walking Duration: 15-30 minutes/day Frequency: 3-4 times per week Do you feel safe at home: Yes Do you feel safe in your relationship?: Yes History History 2 Para 1 Hx # Term Pregnancies 1 Multiple births 0 Hx # Pregnancies 0 Ectopic pregnancies 0 AB induced 0 Hx Number of Living Children 1 AB spontaneous 0 Meds Home Medications Medication Instructions Recorded Confirmed Type vitamins-iron fumarate 65 1 tab PO DAILY 07/12/18 02/09/19 History mg iron-folic acid 1 mg tablet aspirin 81 mg tablet,delayed 81 mg PO DAILY #90 tab 10/08/18 05/01/19 Rx release metoclopramide 10 mg tablet 10 mg PO TID #60 tab 02/02/19 02/09/19 Rx ondansetron 8 mg disintegrating 8 mg PO TID PRN #20 tab 02/02/19 02/09/19 Rx tablet ranitidine 150 mg tablet 150 mg PO BID #40 tab 02/02/19 02/09/19 Rx citalopram 20 mg tablet 30 mg PO DAILY #30 tab 02/08/19 02/09/19 Rx Allergies Allergy/AdvReac Type Severity Reaction Status Date / Time meperidine HCl [From Demerol] Allergy Intermediate Swelling/Ed Unverified 02/09/19 08:59 chaim Exam Resp Auscultation: clear to auscultation bilaterally Cardio Rhythm: regular rhythm Other: Cx 1/Long/posterior/high Extrem Other: 3+ reflexes. No clonus. Results Labs : 02/12/19 07:38 02/12/19 07:30 Laboratory Results - last 24 hr 02/12/19 02/12/19 02/12/19 07:30 07:30 07:30 WBC Cancelled RBC Cancelled Hgb Cancelled Hct Cancelled MCV Cancelled MCH Cancelled MCHC Cancelled RDW Cancelled Plt Count Cancelled MPV Cancelled Immature Gran % Neutrophils % Lymphocytes % Monocytes % Eosinophils % Basophils % Absolute Neutrophils Absolute Lymphocytes Absolute Monocytes Absolute Eosinophils Absolute Basophils Sodium Potassium Chloride Carbon Dioxide Anion Gap BUN Creatinine Cancelled Estimated GFR/1.73 m2 Cancelled Glucose Uric Acid Cancelled Calcium Total Bilirubin Cancelled Conjugated Bilirubin Cancelled AST Cancelled ALT Cancelled Alkaline Phosphatase Cancelled Total Protein Cancelled Albumin Cancelled Patient ABO/Rh Cancelled 02/12/19 02/12/19 07:30 07:38 WBC 13.77 H RBC 4.51 Hgb 13.7 Hct 40.6 MCV 90.0 MCH 30.4 MCHC 33.7 RDW 13.1 Plt Count 369 MPV 10.8 Immature Gran % 1.0 Neutrophils % 78.4 Lymphocytes % 11.7 Monocytes % 7.7 Eosinophils % 1.0 Basophils % 0.2 Absolute Neutrophils 10.80 H Absolute Lymphocytes 1.61 Absolute Monocytes 1.06 H Absolute Eosinophils 0.14 Absolute Basophils 0.03 Sodium 134 L Potassium 3.7 Chloride 100 Carbon Dioxide 23.9 Anion Gap 10.1 BUN 7 Creatinine 0.69 Estimated GFR/1.73 m2 >= 60.00 Glucose 97 Uric Acid 4.3 Calcium 9.0 Total Bilirubin 0.3 Conjugated Bilirubin 0.05 AST 12 L ALT 17 Alkaline Phosphatase 161 H Total Protein 6.9 Albumin 2.7 L Patient ABO/Rh Last Vital Signs BP 199/95 H 02/12/19 07:41
[2019-02-12 09:15] VITALS: BP 193/109; PULSE 59
[2019-02-12] MEDS: Labetalol 100 MG/20 ML VIAL 40 MG IVP (09:15)
[2019-02-12] MEDS: Lactated Ringers 1,000 ML 30 ML IV ×2 (09:33→21:32)
[2019-02-12] MEDS: Normal Saline Flush 10 ML SYR IVP (13:31)
[2019-02-12] MEDS: Metoclopramide 10 MG/2 ML VIAL IVP ×2 (13:31→23:48)
[2019-02-12] MEDS: Acetaminophen 325 MG TAB 650 MG PO ×2 (14:00→21:37)
--- NOTE | 2019-02-12 17:37 | W.PM.OP ---
Date of service: 02/12/19 Time of Service: 17:37 Operative Note DATE OF PROCEDURE: 02/12/19 PRE-OP DIAGNOSIS: Severe preeclampsia with uncontrolled blood pressures POST-OP DIAGNOSIS: same PROCEDURE: Primary low transverse section CHARTER REPRESENTATIVE: Chelsey Maxwell ANESTHESIA: spinal ESTIMATED BLOOD LOSS: 700 PATHOLOGY: none sent COMPLICATIONS: None Patient was transported to: floor
--- NOTE | 2019-02-12 17:43 | W.PM.OP ---
Date of service: 02/12/19 Time of Service: 11:00 Operative Note DATE OF PROCEDURE: 02/12/19 PRE-OP DIAGNOSIS: Severe preeclampsia with uncontrolled blood pressures POST-OP DIAGNOSIS: same PROCEDURE: Primary low transverse section MOTORIZED SQUAD COMMANDING OFFICER: Chelsey Maxwell ANESTHESIA: spinal ESTIMATED BLOOD LOSS: 700 COMPLICATIONS: None Patient was transported to: floor Patient's condition: stable Findings: Delivered a vigorous liveborn female Procedure Description: Patient was taken to the operating room and after adequate level of spinal anesthesia was obtained the patient was placed in supine position with a left lateral tilt. The patient was prepped and draped in usual sterile manner. A Barrios catheter had been placed in the bladder draining clear urine. A Pfannenstiel skin incision was then made with a #10 blade scalpel and sharp dissection was carried down to the underlying layer fascia. The fascia was incised sharply with the scalpel and the incision was extended laterally with Wren scissors. The superior and inferior aspects of the fascial incision were dissected off the underlying layer rectus muscles using both blunt and sharp dissection. The rectus muscles were divided in the midline along the linea alba. The peritoneum was entered sharply and the peritoneal incision was extended superior inferiorly with blunt and sharp dissection. The bladder blade was inserted. The vesicouterine flap was tented up with pickups and incised with Metzenbaum scissors with the incision being carried laterally in either direction with the Metzenbaum scissors. The bladder flap was then created digitally. The lower uterine segment was incised transversely with a scalpel and incision was extended laterally via stretch. The amnion was entered with hemostats and thin meconium was noted. The infant was found in cephalic presentation and delivered atraumatically. Mouth and nose were suctioned. The cord was clamped and cut. The was handed off to the waiting visitor service assistant. The placenta was manually extracted. The uterus was exteriorized and was cleared of all clots and debris. Hysterotomy was closed with a running lock stitch of #1 chromic in a second beginning letter #1 chromic in running fashion to complete the repair. The vesicouterine flap was reapproximated with a running stitch of 3-0 Vicryl. The uterus was returned to the abdomen and excellent hemostasis was noted. The gutters were cleared of all clots and debris. The peritoneum was closed with a running stitch of 2-0 Vicryl. The subfascial space was thoroughly inspected and was noted to be hemostatic. Fascia was closed with a running stitch of 0 Vicryl. The subcutaneous tissues were closed with interrupted sutures of 3-0 Vicryl and the skin was closed with a running subcuticular stitch of 4 Monocryl. Dermabond was applied. The procedure was concluded at this point. Sponge lap needle counts were correct at the conclusion of the procedure and the patient tolerated the procedure well. The patient was transferred back to the floor in stable condition.
--- NOTE | 2019-02-12 17:48 | ROE_ITS ---
Date of service: 02/12/19 Time of Service: 11:00 Operative Note DATE OF PROCEDURE: 02/12/19 PRE-OP DIAGNOSIS: Severe preeclampsia with uncontrolled blood pressures POST-OP DIAGNOSIS: same PROCEDURE: Primary low transverse section SHREDDED FILLER CIGAR MAKER MACHINE: Chelsey Maxwell ANESTHESIA: spinal ESTIMATED BLOOD LOSS: 700 COMPLICATIONS: None Patient was transported to: floor Patient's condition: stable Findings: Delivered a vigorous liveborn female Procedure Description: Patient was taken to the operating room and after adequate level of spinal anesthesia was obtained the patient was placed in supine position with a left lateral tilt. The patient was prepped and draped in usual sterile manner. A Barrios catheter had been placed in the bladder draining clear urine. A Pfannenstiel skin incision was then made with a #10 blade scalpel and sharp dissection was carried down to the underlying layer fascia. The fascia was incised sharply with the scalpel and the incision was extended laterally with Wren scissors. The superior and inferior aspects of the fascial incision were dissected off the underlying layer rectus muscles using both blunt and sharp dissection. The rectus muscles were divided in the midline along the linea alba. The peritoneum was entered sharply and the peritoneal incision was extended superior inferiorly with blunt and sharp dissection. The bladder blade was inserted. The vesicouterine flap was tented up with pickups and incised with Metzenbaum scissors with the incision being carried laterally in either direction with the Metzenbaum scissors. The bladder flap was then created digitally. The lower uterine segment was incised transversely with a scalpel and incision was extended laterally via stretch. The amnion was entered with hemostats and thin meconium was noted. The infant was found in cephalic presentation and delivered atraumatically. Mouth and nose were suctioned. The cord was clamped and cut. The was handed off to the waiting associate quality engineer. The placenta was manually extracted. The uterus was exteriorized and was cleared of all clots and debris. Hysterotomy was closed with a running lock stitch of #1 chr omic in a second beginning letter #1 chromic in running fashion to complete the repair. The vesicouterine flap was reapproximated with a running stitch of 3-0 Vicryl. The uterus was returned to the abdomen and excellent hemostasis was noted. The gutters were cleared of all clots and debris. The peritoneum was closed with a running stitch of 2-0 Vicryl. The subfascial space was thoroughly inspected and was noted to be hemostatic. Fascia was closed with a running stitch of 0 Vicryl. The subcutaneous tissues were closed with interrupted sutures of 3-0 Vicryl and the skin was closed with a running subcuticular stitch of 4 Monocryl. Dermabond was applied. The procedure was concluded at this point. Sponge lap needle counts were correct at the conclusion of the procedure and the patient tolerated the procedure well. The patient was transferred back to the floor in stable condition.
[2019-02-12] MEDS: Ketorolac 30 MG/ML VIAL IVP (18:38)
[2019-02-12] MEDS: Ondansetron 4 MG/2 ML VIAL IVP (19:42)
[2019-02-13] MEDS: Ketorolac 30 MG/ML VIAL IVP ×4 (00:56→22:27)
[2019-02-13] MEDS: oxyCODONE 5 mg/Acetaminophen 325 mg TAB PO ×4 (04:42→20:53)
[2019-02-13] MEDS: MAGNESIUM SULFATE 20 GM/500 ML BAG IV (05:30)
[2019-02-13] MEDS: Ondansetron 4 MG/2 ML VIAL IVP ×2 (07:08→15:05)
[2019-02-13 07:24] LABS: HCT 37.2 % (36.0-46.0); HGB 12.4 g/dL (12.0-15.5); Mean Corp. HGB Concentration 33.3 g/dL (32.0-36.0); Mean Corpuscular Hemoglobin 30.2 pg (27.0-33.0); Mean Corpuscular Volume 90.5 fL (80-95); Mean Platelet Volume 10.5 fL (8.0-11.0); Platelet Count 418 x1000/uL (130-400); RBC 4.11 m/cumm (4.00-5.20); RBC Distribution Width 13.2 % (11.7-14.6); White Blood Cell Count 19.42 k/cumm (4.4-10.8)
[2019-02-13 07:42] LABS: ALT 17 U/L (12-78); AST 22 U/L (15-37); Albumin 2.5 g/dL (3.4-5.0); Alkaline Phosphatase 148 U/L (46-116); Anion Gap 6.5 mmol/L (3-11); BUN 4 mg/dL (7-18); Bilirubin, Total 0.3 mg/dL (0.2-1.0); CO2 30.5 mmol/L (21.0-32.0); CREATININE 0.79 mg/dL (0.55-1.02); Calcium 7.9 mg/dL (8.5-10.1); Chloride 98 mmol/L (98-107); Glucose 100 mg/dL (70-100); Potassium 3.6 mmol/L (3.5-5.1); Sodium 135 mmol/L (136-145); Total Protein 6.7 g/dL (6.4-8.2)
[2019-02-13 08:23] LABS: COMMENT (LAB VIEW ONLY) 19.97 mg/dL; PROTEIN 9.8 mg/dL; Prot/Crea Ur Ratio 0.49
--- NOTE | 2019-02-13 09:15 | W.PM.PROGNOT ---
Date of Service Date of service: 02/13/19 Time of Service: 09:15 Assessment and Plan (1) Severe preeclampsia: Current visit: Yes Status: Acute (2) S/P section: Current visit: Yes Status: Acute POD 1 s/p section for severe preeclampsia with uncontrolled hypertension. Patient markedly improved overnight. Only one or two blood pressures were outside of normal range with systolic in 140s. Will discontinue magnesium sulfate this morning, remove caraballo catheter and allow to ambulate. Continue strict I/Os. Repeat laboratory studies in am. Subjective Interval history since last seen: Feels much better today. Urine output was nearly 5L overnight. Pain is well controlled. Some nausea and vomiting yesterday afternoon but none today. Headache is completely resolved as is her RUQ pain. Exam Resp Auscultation: clear to auscultation bilaterally Cardio Rate: regular rate Rhythm: regular rhythm Objective Objective Clinical Data: Abnormal lab results 02/13/19 02/13/19 Range/Units 06:48 06:48 WBC 19.42 H D (4.4-10.8) k/cumm Plt Count 418 H (130-400) x1000/uL Sodium 135 L (136-145) mmol/L BUN 4 L (7-18) mg/dL Calcium 7.9 L (8.5-10.1) mg/dL Alkaline Phosphatase 148 H (46-116) U/L Albumin 2.5 L (3.4-5.0) g/dL Vital Signs Pulse 59 L 02/12/19 09:15 Blood Pressure 193/109 H 02/12/19 09:15 Pain Level 8 02/13/19 04:42 Intake & Output 02/12/19 02/12/19 02/13/19 11:59 23:59 11:59 Intake Total 600 / 2461.834 1861.834 / 2461.834 495 / 495 Output Total 850 / 850 Balance -250 / 6917.421 6981.834 / 1611.834 495 / 495 Intake: IV 600 / 2461.834 1861.834 / 2461.834 495 / 495 Output: Urine 250 / 250 Estimated Blood Loss 600 / 600 Other: Urine Color Yellow Urine Appearance Clear Laboratory Results WBC 19.42 k/cumm (4.4-10.8) H D 02/13/19 06:48 RBC 4.11 m/cumm (4.00-5.20) 02/13/19 06:48 Hgb 12.4 g/dL (12.0-15.5) 02/13/19 06:48 Hct 37.2 % (36.0-46.0) 02/13/19 06:48 MCV 90.5 fL (80-95) 02/13/19 06:48 MCH 30.2 pg (27.0-33.0) 02/13/19 06:48 MCHC 33.3 g/dL (32.0-36.0) 02/13/19 06:48 RDW 13.2 % (11.7-14.6) 02/13/19 06:48 Plt Count 418 x1000/uL (130-400) H 02/13/19 06:48 MPV 10.5 fL (8.0-11.0) 02/13/19 06:48 Immature Gran % 1.0 02/12/19 07:38 Neutrophils % 78.4 02/12/19 07:38 Lymphocytes % 11.7 02/12/19 07:38 Monocytes % 7.7 02/12/19 07:38 Eosinophils % 1.0 02/12/19 07:38 Basophils % 0.2 02/12/19 07:38 Absolute Neutrophils 10.80 k/cumm (1.2-6.7) H 02/12/19 07:38 Absolute Lymphocytes 1.61 k/cumm (1.2-3.4) 02/12/19 07:38 Absolute Monocytes 1.06 k/cumm (0.11-0.7) H 02/12/19 07:38 Absolute Eosinophils 0.14 k/cumm (0.0-0.7) 02/12/19 07:38 Absolute Basophils 0.03 k/cumm (0.0-0.2) 02/12/19 07:38 Sodium 135 mmol/L (136-145) L 02/13/19 06:48 Potassium 3.6 mmol/L (3.5-5.1) 02/13/19 06:48 Chloride 98 mmol/L (98-107) 02/13/19 06:48 Carbon Dioxide 30.5 mmol/L (21.0-32.0) 02/13/19 06:48 Anion Gap 6.5 mmol/L (3-11) 02/13/19 06:48 BUN 4 mg/dL (7-18) L 02/13/19 06:48 Creatinine 0.79 mg/dL (0.55-1.02) 02/13/19 06:48 Estimated GFR/1.73 m2 >= 60.00 (mL/min/1.73m2) 02/13/19 06:48 Glucose 100 mg/dL (70-100) 02/13/19 06:48 Uric Acid 4.3 mg/dL (2.6-6.0) 02/12/19 07:30 Calcium 7.9 mg/dL (8.5-10.1) L 02/13/19 06:48 Total Bilirubin 0.3 mg/dL (0.2-1.0) 02/13/19 06:48 Conjugated Bilirubin 0.05 mg/dL (0.00-0.20) 02/12/19 07:30 AST 22 U/L (15-37) 02/13/19 06:48 ALT 17 U/L (12-78) 02/13/19 06:48 Alkaline Phosphatase 148 U/L (46-116) H 02/13/19 06:48 Total Protein 6.7 g/dL (6.4-8.2) 02/13/19 06:48 Albumin 2.5 g/dL (3.4-5.0) L 02/13/19 06:48 Ur Random Creatinine 19.97 mg/dL 02/13/19 07:00 U Random Total Protein 9.8 mg/dL 02/13/19 07:00 U [place] Prot/Creat Ratio 0.49 02/13/19 07:00 Patient ABO/Rh A Positive 02/12/19 07:30 Antibody Screen Negative 02/12/19 07:30
[2019-02-13] MEDS: Acetaminophen 325 MG TAB 650 MG PO (13:59)
[2019-02-13] MEDS: Normal Saline Flush 10 ML SYR IVP ×2 (15:01→22:28)
[2019-02-13] MEDS: Docusate Sodium 100 MG CAP PO (15:01)
[2019-02-13] MEDS: fentaNYL 100 MCG/2 ML VIAL 50 MCG IVP (18:43)
[2019-02-13] MEDS: MORPHine 2 MG/ML SYR IVP (22:27)
[2019-02-14] MEDS: MORPHine 2 MG/ML SYR IVP (00:44)
[2019-02-14] MEDS: oxyCODONE 5 mg/Acetaminophen 325 mg TAB PO ×5 (03:27→22:54)
[2019-02-14 06:48] LABS: HCT 36.3 % (36.0-46.0); HGB 11.8 g/dL (12.0-15.5); Mean Corp. HGB Concentration 32.5 g/dL (32.0-36.0); Mean Corpuscular Hemoglobin 29.9 pg (27.0-33.0); Mean Corpuscular Volume 92.1 fL (80-95); Mean Platelet Volume 10.1 fL (8.0-11.0); Platelet Count 380 x1000/uL (130-400); RBC 3.94 m/cumm (4.00-5.20); RBC Distribution Width 13.4 % (11.7-14.6); White Blood Cell Count 11.99 k/cumm (4.4-10.8)
[2019-02-14 07:21] LABS: ALT 19 U/L (12-78); AST 22 U/L (15-37); Albumin 2.4 g/dL (3.4-5.0); Alkaline Phosphatase 125 U/L (46-116); Anion Gap 7.5 mmol/L (3-11); BUN 7 mg/dL (7-18); Bilirubin, Total 0.3 mg/dL (0.2-1.0); CO2 27.5 mmol/L (21.0-32.0); CREATININE 0.62 mg/dL (0.55-1.02); Calcium 8.4 mg/dL (8.5-10.1); Chloride 101 mmol/L (98-107); Glucose 85 mg/dL (70-100); Potassium 3.7 mmol/L (3.5-5.1); Sodium 136 mmol/L (136-145); Total Protein 6.3 g/dL (6.4-8.2)
--- NOTE | 2019-02-14 08:20 | PGE_ITS ---
Date of Service Date of service: 02/14/19 Time of Service: 08:16 Assessment and Plan (1) S/P section: Current visit: Yes Status: Acute (2) Severe preeclampsia: Current visit: Yes Status: Acute Will start on PO labetalol this morning. Continue routine post op management. Plan for discharge home tomorrow if blood pressures well controlled. Subjective Interval history since last seen: Doing well this morning. Pain improved. Denies headache or visual changes. Blood pressures have been mostly in 140s but did have a single severe range blood pressure this morning with systolic in 160s. Required IV Morphine last night for pain management. Exam Resp Auscultation: clear to auscultation bilaterally Cardio Rate: regular rate Rhythm: regular rhythm Objective Objective Clinical Data: Abnormal lab results 02/14/19 02/14/19 Range/Units 06:35 06:35 WBC 11.99 H D (4.4-10.8) k/cumm RBC 3.94 L (4.00-5.20) m/cumm Hgb 11.8 L (12.0-15.5) g/dL Calcium 8.4 L (8.5-10.1) mg/dL Alkaline Phosphatase 125 H (46-116) U/L Total Protein 6.3 L (6.4-8.2) g/dL Albumin 2.4 L (3.4-5.0) g/dL Vital Signs Pulse 59 L 02/12/19 09:15 Blood Pressure 193/109 H 02/12/19 09:15 Pain Level 5 02/14/19 03:27 Intake & Output 02/13/19 02/13/19 02/14/19 11:59 23:59 11:59 Intake Total 720 / 720 Balance 720 / 720 Intake: IV 720 / 720 Laboratory Results WBC 11.99 k/cumm (4.4-10.8) H D 02/14/19 06:35 RBC 3.94 m/cumm (4.00-5.20) L 02/14/19 06:35 Hgb 11.8 g/dL (12.0-15.5) L 02/14/19 06:35 Hct 36.3 % (36.0-46.0) 02/14/19 06:35 MCV 92.1 fL (80-95) 02/14/19 06:35 MCH 29.9 pg (27.0-33.0) 02/14/19 06:35 MCHC 32.5 g/dL (32.0-36.0) 02/14/19 06:35 RDW 13.4 % (11.7-14.6) 02/14/19 06:35 Plt Count 380 x1000/uL (130-400) 02/14/19 06:35 MPV 10.1 fL (8.0-11.0) 02/14/19 06:35 Immature Gran % 1.0 02/12/19 07:38 Neutrophils % 78.4 02/12/19 07:38 Lymphocytes % 11.7 02/12/19 07:38 Monocytes % 7.7 02/12/19 07:38 Eosinophils % 1.0 02/12/19 07:38 Basophils % 0.2 02/12/19 07:38 Absolute Neutrophils 10.80 k/cumm (1.2-6.7) H 02/12/19 07:38 Absolute Lymphocytes 1.61 k/cumm (1.2-3.4) 02/12/19 07:38 Absolute Monocytes 1.06 k/cumm (0.11-0.7) H 02/12/19 07:38 Absolute Eosinophils 0.14 k/cumm (0.0-0.7) 02/12/19 07:38 Absolute Basophils 0.03 k/cumm (0.0-0.2) 02/12/19 07:38 Sodium 136 mmol/L (136-145) 02/14/19 06:35 Potassium 3.7 mmol/L (3.5-5.1) 02/14/19 06:35 Chloride 101 mmol/L (98-107) 02/14/19 06:35 Carbon Dioxide 27.5 mmol/L (21.0-32.0) 02/14/19 06:35 Anion Gap 7.5 mmol/L (3-11) 02/14/19 06:35 BUN 7 mg/dL (7-18) 02/14/19 06:35 Creatinine 0.62 mg/dL (0.55-1.02) 02/14/19 06:35 Estimated GFR/1.73 m2 >= 60.00 (mL/min/1.73m2) 02/14/19 06:35 Glucose 85 mg/dL (70-100) 02/14/19 06:35 Uric Acid 4.3 mg/dL (2.6-6.0) 02/12/19 07:30 Calcium 8.4 mg/dL (8.5-10.1) L 02/14/19 06:35 Total Bilirubin 0.3 mg/dL (0.2-1.0) 02/14/19 06:35 Conjugated Bilirubin 0.05 mg/dL (0.00-0.20) 02/12/19 07:30 AST 22 U/L (15-37) 02/14/19 06:35 ALT 19 U/L (12-78) 02/14/19 06:35 Alkaline Phosphatase 125 U/L (46-116) H 02/14/19 06:35 Total Protein 6.3 g/dL (6.4-8.2) L 02/14/19 06:35 Albumin 2.4 g/dL (3.4-5.0) L 02/14/19 06:35 Ur Random Creatinine 19.97 mg/dL 02/13/19 07:00 U Random Total Protein 9.8 mg/dL 02/13/19 07:00 U [place] Prot/Creat Ratio 0.49 02/13/19 07:00 Patient ABO/Rh A Positive 02/12/19 07:30 Antibody Screen Negative 02/12/19 07:30
[2019-02-14] MEDS: Labetalol 100 MG TAB 200 MG PO ×2 (08:53→20:10)
[2019-02-14] MEDS: Citalopram 10 MG TAB 30 MG PO (10:03)
[2019-02-14] MEDS: Normal Saline Flush 10 ML SYR IVP ×3 (11:15→18:38)
[2019-02-14] MEDS: Ketorolac 30 MG/ML VIAL IVP ×2 (11:15→18:37)
[2019-02-14] MEDS: Ondansetron 4 MG/2 ML VIAL IVP (12:15)
[2019-02-15] MEDS: Ketorolac 30 MG/ML VIAL IVP (01:10)
[2019-02-15] MEDS: oxyCODONE 5 mg/Acetaminophen 325 mg TAB PO ×5 (03:27→20:05)
[2019-02-15] MEDS: Citalopram 10 MG TAB 30 MG PO (08:20)
[2019-02-15] MEDS: Docusate Sodium 100 MG CAP PO (08:21)
[2019-02-15] MEDS: Labetalol 100 MG TAB 200 MG PO ×2 (09:08→20:06)
--- NOTE | 2019-02-15 11:44 | W.PM.DS.N ---
DS: Diagnosis Discharge Diagnosis (1) S/P section: Status: Acute (2) Severe preeclampsia: Status: Acute (3) Preeclampsia in period: Status: Resolved Discharge Plan Disposition Patient Disposition: HOME Condition: Fair Discharge Details Reason For Visit: PREECLAMPSIA Admit Date/Time: 02/12/19 07:26 Admit Provider: Tricia Hung Attending Provider: Tricia Hung [facility] Hospital Course: 23-year-old G2, P2 female admitted to [facility] center on 10/2018 with severe preeclampsia by blood pressure criteria. She also complained of severe headache. There is no decrease in blood pressure despite IV intravenous antihypertensives. Patient was remote from delivery was counseled to have a primary delivery. She gave to the viable female named Hue weighing 5lb 8oz with apgars 8/9. Magnesium Sulfate infusion was continued for 24 hours after delivery. The patient was then treated with twice daily with labetalol dosing with satisfactory blood pressure control. Feeding issues with her daughter persisted for several days and on postop day 3 and the medical and nursing staff was concerned that she would be unable to successfully breastfeed her at home. It was decided that it would be in the best interest of both the mother and child to have her remain an inpatient and be discharged on post op day4. By the morning of discharge she was successfully breast feeding and ready for discharge. Home Meds and New Rx's Prescriptions: No Action aspirin 81 mg tablet,delayed release (DR/EC) 81 mg PO DAILY Qty: 90 RF: 2 ondansetron 8 mg tablet,disintegrating 8 mg PO TID PRN (Reason: hyperemesis) Qty: 20 RF: 0 metoclopramide HCl [Reglan] 10 mg tablet 10 mg PO TID Qty: 60 RF: 0 ranitidine HCl [Zantac] 150 mg tablet 150 mg PO BID Qty: 40 RF: 0 vit-iron fum-folic ac 65 mg iron- 1 mg tablet 1 tab PO DAILY RF: 0 citalopram [Celexa] 20 mg tablet 30 mg PO DAILY Qty: 30 RF: 0 labetalol 200 mg tablet 200 mg PO BID Qty: 60 RF: 1 ibuprofen 600 mg tablet 600 mg PO QID PRN (Reason: pain) Qty: 30 RF: 0 oxycodone-acetaminophen [Percocet] 5-325 mg tablet 1 tab PO Q6H MDD 4 PRN (Reason: pain) Qty: 10 RF: 0 Discharge Instructions Additional Instructions: Continue twice daily labetalol dosing for your blood pressure. Plan to be seen in the office approximately 2 weeks for blood pressure check. Call the office in the event of severe headache swelling of your feet or vision changes Stand Alone Forms: BC Instructions, BC Discharge Instruc Activity:: Activity as Tolerated Equipment/Supplies:: No Equipment Needed Diet:: As Tolerated Discharge Orders Discharge Orders: Discharge Order (Routine); Ordered 02/16/19 Ordered By: Verena Armstrong Exam Const General: comfortable Nutritional Appearance: average body habitus Orientation: alert, awake and oriented x3 Resp Effort & Inspection: normal respiratory effort Auscultation: clear to auscultation bilaterally Cardio Palpation: normal PMI Rate: regular rate Other: Blood pressure immediately after elevated blood pressure obtained this morning repeat blood pressure is 154/84. Plan is to continue current dose of labetalol. GI Inspection: normal to inspection Other: Feels to the skin incision was approximated without erythema or induration General: deferred Skin Trauma: other (Ecchymosis still skin incision in the area where retractors were applied) Extrem General: normal to inspection and full ROM DS: Data Vitals/I&O Vitals and I&O: Vital Signs Pulse 59 L 02/12/19 09:15 Blood Pressure 193/109 H 02/12/19 09:15 Pain Level 7 02/15/19 08:21 PFSH Medical History delivery delivered (Acute) Lumbar disc lesion (Acute) Right lumbar radiculopathy (Acute) Preeclampsia in period (Resolved) Irregular heart beat Bradycardia 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/2013) Depression (Chronic) Surgical History Spinal L4and L5 repair Social History Smoking/Tobacco Use Status: Never Alcohol Intake: never Drug use: Never Substance use type: does not use Household members: significant other, children and other Details: [facility]. [address] 02/2019 [place]. 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 Date GA/Weeks # Outcome Route Wgt Sex Labor Lgth Anesthesia Location Prov Complic 11/05/17 38 No Successful vaginal Female 02/12/19 38 No Successful Female Delivery Date: 02/12/19 On 02/15/19 @ 12:10 Verena Armstrong Arrived in labor with preeclampsia severe by BP criteria. No response to IV meds. PC/Kaya Swann. D/C home with Labetalol for BP. Delivery Date: 11/05/17 On 02/15/19 @ 12:08 Verena Armstrong Rapid delivery. [place]. Treated with Labetalol for PP HTN.
--- NOTE | 2019-02-15 12:01 | DSE_ITS ---
DS: Diagnosis Discharge Diagnosis (1) S/P section: Status: Acute (2) Severe preeclampsia: Status: Acute (3) Preeclampsia in period: Status: Resolved Discharge Plan Disposition Patient Disposition: HOME Condition: Fair Discharge Details Reason For Visit: PREECLAMPSIA Admit Date/Time: 02/12/19 07:26 Admit Provider: Tricia Hung Attending Provider: Tricia Hung [facility] Hospital Course: 23-year-old G2, P2 female admitted to [facility] on 10/2018 with severe preeclampsia by blood pressure criteria. She also complained of severe headache. There is no decrease in blood pressure despite IV intravenous antihypertensives. Patient was remote from delivery was counseled to have a primary delivery. She gave to the viable female named Hue weighing 5lb 8oz with apgars 8/9. Magnesium Sulfate infusion was continued for 24 hours after delivery. The patient was then treated with twice daily with labetalol dosing with satisfactory blood pressure control. Feeding issues with her daughter persisted for several days and on postop day 3 and the medical and nursing staff was concerned that she would be unable to successfully breastfeed her at home. It was decided that it would be in the best interest of both the mother and child to have her remain an inpatient and be discharged on post op day4. By the morning of discharge she was successfully breast feeding and ready for discharge. Home Meds and New Rx's Prescriptions: No Action aspirin 81 mg tablet,delayed release (DR/EC) 81 mg PO DAILY Qty: 90 RF: 2 ondansetron 8 mg tablet,disintegrating 8 mg PO TID PRN (Reason: hyperemesis) Qty: 20 RF: 0 metoclopramide HCl [Reglan] 10 mg tablet 10 mg PO TID Qty: 60 RF: 0 ranitidine HCl [Zantac] 150 mg tablet 150 mg PO BID Qty: 40 RF: 0 vit-iron fum-folic ac 65 mg iron- 1 mg tablet 1 tab PO DAILY RF: 0 citalopram [Celexa] 20 mg tablet 30 mg PO DAILY Qty: 30 RF: 0 labetalol 200 mg tablet 200 mg PO BID Qty: 60 RF: 1 ibuprofen 600 mg tablet 600 mg PO QID PRN (Reason: pain) Qty: 30 RF: 0 oxycodone-acetaminophen [Percocet] 5-325 mg tablet 1 tab PO Q6H MDD 4 PRN (Reason: pain) Qty: 10 RF: 0 Discharge Instructions Additional Instructions: Continue twice daily labetalol dosing for your blood pressure. Plan to be seen in the office approximately 2 weeks for blood pressure check. Call the office in the event of severe headache swelling of your feet or vision changes Stand Alone Forms: BC Instructions, BC Discharge Instruc Activity:: Activity as Tolerated Equipment/Supplies:: No Equipment Needed Diet:: As Tolerated Discharge Orders Discharge Orders: Discharge Order (Routine); Ordered 02/16/19 Ordered By: Verena Armstrong Exam Const General: comfortable Nutritional Appearance: average body habitus Orientation: alert, awake and oriented x3 Resp Effort & Inspection: normal respiratory effort Auscultation: clear to auscultation bilaterally Cardio Palpation: normal PMI Rate: regular rate Other: Blood pressure immediately after elevated blood pressure obtained this morning repeat blood pressure is 154/84. Plan is to continue current dose of labetalol. GI Inspection: normal to inspection Other: Feels to the skin incision was approximated without erythema or i nduration General: deferred Skin Trauma: other (Ecchymosis still skin incision in the area where retractors were applied) Extrem General: normal to inspection and full ROM DS: Data Vitals/I&O Vitals and I&O: Vital Signs Pulse 59 L 02/12/19 09:15 Blood Pressure 193/109 H 02/12/19 09:15 Pain Level 7 02/15/19 08:21 PFSH Medical History delivery delivered (Acute) Lumbar disc lesion (Acute) Right lumbar radiculopathy (Acute) Preeclampsia in period (Resolved) Irregular heart beat Bradycardia 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/2013) Depression (Chronic) Surgical History Spinal L4and L5 repair Social History Smoking/Tobacco Use Status: Never Alcohol Intake: never Drug use: Never Substance use type: does not use Household members: significant other, children and other Details: Partner- [place]. [address]. 02/2019 [place]. 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 Date GA/Weeks # Outcome Route Wgt Sex Labor Lgth Anesthesia Location Prov Complic 11/05/17 38 No Successful vaginal Female 02/12/19 38 No Successful Female Delivery Date: 02/12/19 On 02/15/19 @ 12:10 Verena Armstrong Arrived in labor with preeclampsia severe by BP criteria. No response to IV meds. PC/SCheryl Swann. D/C home with Labetalol for BP. Delivery Date: 11/05/17 On 02/15/19 @ 12:08 Verena Armstrong Rapid delivery. [place]. Treated with Labetalol for PP HTN.
[2019-02-15] MEDS: Ibuprofen 600 MG TAB PO ×2 (16:08→21:44)
[2019-02-16] MEDS: oxyCODONE 5 mg/Acetaminophen 325 mg TAB PO ×3 (00:34→10:38)
[2019-02-16] MEDS: Docusate Sodium 100 MG CAP PO (08:22)
[2019-02-16] MEDS: Citalopram 10 MG TAB 30 MG PO (08:23)
[2019-02-16] MEDS: Labetalol 100 MG TAB 200 MG PO (08:23)
[2019-02-16] MEDS: Ibuprofen 600 MG TAB PO (10:39)
== END 2019-02-16 10:50 | disposition home or self-care (01) | DRG 788 ==
PROVIDERS: Admitting Provider Obstetrics & Gynecology; Visit Provider Obstetrics & Gynecology Gynecology
PROC: 10D00Z1 Extraction of Products of Conception, Low, Open Approach (ICD-10-PCS; CPT 59514; principal; 2019-02-12 09:25)
DX: O14.14 Severe pre-eclampsia complicating childbirth (principal); Z37.0 Single live birth; Z3A.38 38 weeks gestation of pregnancy; O99.824 Streptococcus B carrier state complicating childbirth; O14.15 Severe pre-eclampsia, complicating the puerperium; O92.79 Other disorders of lactation
CPT/HCPCS: 59514; 36415; 80053; 80076; 85027; 86850; 86900; 86901; 99223; 99233; NC; 82565; 84156; 84550; 85025; J0360; J0690; J1885; J2270; J2370; J2405; J2590; J2765; J3010; J3475; J3490

== ENCOUNTER 2019-03-03 12:00 | Outpatient (CLI) | payer MEDICAID, SELFPAY | END 2019-03-03 12:20 | PROVIDERS: Visit Provider Advanced Practice Midwife | DX: R69 Illness, unspecified (principal) ==

== ENCOUNTER 2019-04-04 12:13 | Outpatient (REF) | payer MEDICAID, SELFPAY ==
--- NOTE | 2019-04-04 10:48 | PAPFT_PTH ---
PATIENT: Alexandrea Bobo LOC: [facility] U#:[id number] AGE/SX: 23/F ROOM: RE04/04/[address]: Carter Che CNM : 1995 BED: DIS: 04/04/2019 SPEC #: [id number] RECD: 04/04/19 12:59 STATUS: BRITT REQ #: [id number] NANY: 04/04/19 10:[address]: Carter Che DEPT: [facility] Cytology RECD BY: Shayy Roper ENTERED: 04/04/19 12:59 SP TYPE: PAPFT OTHR DR: Rose Local Tissues: 1 - CX/ENDOCX FOR PAP SMEARS Procedures: PAP THIN PREP/UVM Screening HPV DNA PROBE Comments: [id number] (CHLAMYDIA/GC)
[2019-04-05 15:06] LABS: Chlamydia Result Negative; GC Result Negative; Specimen Description SEE COMMENTS
== END 2019-04-04 12:33 ==
LOC: LBN 12:13
PROVIDERS: Visit Provider Advanced Practice Midwife
DX: Z12.4 Encounter for screening for malignant neoplasm of cervix (principal); Z11.51 Encounter for screening for human papillomavirus (HPV); Z11.3 Encounter for screening for infections with a predominantly sexual mode of transmission; R87.610 Atypical squamous cells of undetermined significance on cytologic smear of cervix (ASC-US)
CPT/HCPCS: 87491; 87591; 88142; 87624

== ENCOUNTER 2020-03-22 15:33 | Outpatient (REF) | payer MEDICAID, SELFPAY | END 2020-03-22 15:53 | LOC: LBN 15:33 | PROVIDERS: Visit Provider Obstetrics & Gynecology | DX: R10.2 Pelvic and perineal pain (principal) | CPT/HCPCS: 87480; 87510; 87660 ==

== ENCOUNTER 2020-03-26 11:38 | Outpatient (CLI) | payer MEDICAID, SELFPAY ==
--- NOTE | 2020-03-23 14:15 | DI.US_ITS ---
EXAM: US PELVIS TRANSVAGINAL CLINICAL HISTORY: pelvic pain, iud,r10.2,z97.5. TECHNIQUE: Transabdominal and transvaginal pelvic ultrasound was performed using standard protocol. COMPARISON: US US OB [facility] weight from 01/27/2019 FINDINGS: KIDNEYS: Kidneys are symmetric in size. No evidence of renal calculi. No evidence of hydronephrosis. No renal mass or cyst identified. UTERUS: Position: Anteverted. Size: 8.6 long by 4.7 AP by 5.4 transverse cm Endometrium: 0.3 cm. Normal for patient's menstrual status. IUD is seen in good position within the e ndometrial canal. Myometrium: Unremarkable. Cervix: Unremarkable. OVARIES: Right: 4.1 x 2.9 x 3.1 cm Cyst or mass: Small follicular cysts. The largest simple cyst measures 2.7 x 2.2 x 2.5 cm. Left: 3.0 x 2.1 x 2.0 cm Cyst or mass: Small follicular cysts. DOPPLER: Color: Symmetric and uniform flow to both ovaries. No hyperemia. Duplex: Normal ovarian arterial waveforms visualized. CUL-DE-SAC: Free fluid: None. Other: None. IMPRESSION: 1. Normal sonographic appearance of the kidneys. 2. Normal-appearing uterus with endometrial stripe within normal limits. 3. Unremarkable bilateral ovaries. 4. IUD in good position. DATA REPOSITORY:
== END 2020-03-26 11:58 ==
PROVIDERS: Visit Provider Obstetrics & Gynecology
DX: R10.2 Pelvic and perineal pain (principal); Z97.5 Presence of (intrauterine) contraceptive device
CPT/HCPCS: 76830; 76856

== ENCOUNTER 2020-04-23 09:44 | Outpatient (CLI) | payer MEDICAID, SELFPAY ==
[2020-04-25 15:04] LABS: COVID-19 RT-PCR Result NEGATIVE (Negative)
== END 2020-04-23 10:04 ==
PROVIDERS: Visit Provider Nurse Practitioner Family
DX: Z11.59 Encounter for screening for other viral diseases (principal)
CPT/HCPCS: U0003

== ENCOUNTER 2021-01-25 15:10 | Outpatient (CLI) | payer MEDICAID, SELFPAY ==
--- NOTE | 2021-01-25 | DI.RAD_ITS ---
EXAM: XR TIB/FIB LT CLINICAL HISTORY: TRAUMA, SWELLING. TECHNIQUE: 2D digital imaging was performed COMPARISON: No exams were available for comparison FINDINGS: BONES: No acute fracture is present. No bony destructive lesion is seen. Visualized portion of knee a nd ankle joints are unremarkable. SOFT TISSUE: There is mild focal soft tissue swelling anteriorly in the mid lower leg corresponding t o the site of pain. No radiopaque foreign body is identified. IMPRESSION: No acute fracture or dislocation. DATA REPOSITORY: RADIATION DOSE DELIVERED:
--- NOTE | 2021-01-25 15:50 | NUR.NOTE ---
Nursing Note: José Miguel [facility] called asking who had written a prescription for this patient. After looking at the select visits for this patient I sent the call to [facility] for Patricia Wallace. They were unable to read the provider name or the DEIDRA number. Bethany Worrell
== END 2021-01-25 15:30 ==
PROVIDERS: PCP Family Medicine; Visit Provider Nurse Practitioner Family
DX: M79.605 Pain in left leg (principal); M79.89 Other specified soft tissue disorders
CPT/HCPCS: 73590

== ENCOUNTER 2021-02-17 21:01 | Emergency (ER) | payer MEDICAID, SELFPAY ==
--- NOTE | 2021-02-17 21:00 | DI.RAD_ITS ---
Exam(s) XR TIB/FIB LT EXAM: XR TIB/FIB LT CLINICAL HISTORY: trauma to midshaft tib. TECHNIQUE: 2D digital imaging was performed. COMPARISON: CR XR TIB/FIB LT from 01/25/2021 FINDINGS: There is no evidence of fracture nor dislocation. No osseous lesions. No abnormal soft tissue densi ties. Bone density normal. IMPRESSION: No significant findings. DATA REPOSITORY: RADIATION DOSE DELIVERED:
[2021-02-17 21:05] VITALS: BP 143/109; PULSE 80; RESP 16; TEMP 36.9; O2SAT 97
--- NOTE | 2021-02-17 21:13 | W.ED.GENAD ---
Discharge Plan Disposition Patient Disposition: HOME Condition: Good Discharge Details Clinical Impression: Contusion, Pain in left tibia Primary Care Provider: Victorino Phelan ED Provider: Hitesh Owens Home Meds and New Rx's Prescriptions: Continued Mirena 20 mcg/24 hours (5 yrs) 52 mg intrauterine device 1 device IY ONCE RF: 0 ibuprofen 600 mg tablet 600 mg PO QID PRN (Reason: pain) Qty: 30 RF: 0 tramadol 50 mg tablet 50 mg PO QID RF: 0 citalopram 20 mg tablet 20 mg PO QAM RF: 0 celecoxib 100 mg capsule 100 mg PO BID RF: 0 Discharge Instructions Instructions: Hydrocodone/Acetaminophen (By mouth), Contusion in Adults (ED) Additional Instructions: At this time your x-ray shows no new fractures. As we discussed together it is likely pain related to the reinjury of the reossification site from your previous injury. There is a concern that this may be the early stages of something called reflex sympathetic dystrophy. In the meantime please continue to avoid any trauma to the area, take Tylenol and Motrin as needed. Use your crutches as needed to stay off of it. Take the pain pill as needed for breakthrough pain if you notice any worsening of your symptoms, or any new symptoms such as vomiting, diarrhea, fever, chills, shortness of breath, chest pain, numbness, weakness, or fainting , please return immediately to the emergency department for reevaluation. Please follow up with your primary care provider as soon as possible for reassessment and reevaluation. As always, it was a pleasure participating in your medical care today. Stand Alone Forms: Work Release Referrals: Victorino Phelan [Primary Care Provider] - Medical Decision Making 25-year-old female with no significant past medical history except still or previous preeclampsia, currently on control, who presents today for evaluation of left sanchez pain. Patient states that 1 month ago she hit her tibia notably hard on the stairs, she had an x-ray at that time which showed no evidence of fracture. She was doing well except for some mild chronic pain over the sanchez until about 20 minutes prior to arrival when her 3-year-old fell fairly forcefully onto her left sanchez. She immediately developed severe aching pain from the anterior tibia at the previous site where she suffered injury, extending both proximally up towards the thigh and distally towards the ankle. No actual pain in any other location including the knee, however it was felt to be referred pain. She denies any long trips, surgeries or procedures. She denies any history of blood clots. She denies any numbness or tingling. No other complaints this time. Physical exam demonstrates some old bruising over the distal tibia, a small raised periosteal site on the distal tibia which is notably tender. Mild tenderness in the area surrounding that on the tibial shaft. No significant calf tenderness. Symptoms appear inconsistent with DVT. Suspect that the patient had trauma to the healing periosteal site, which resulted in her current notable pain. We will get an x-ray to make sure there is no new fracture, will give Tylenol, Toradol, and a Lidoderm patch. 10:07 PM X-ray results have returned negative per radiology. Patient has minimal/mild improvement of pain but certainly not resolution. Symptoms appear consistent with mild trauma/contusion to the reossification areas, and inconsistent with notable fracture. There is concern that this may be the early onset of reflex sympathetic dystrophy. No indication for gabapentin at this time. No need for emergent orthopedic consult. At this time I feel the patient can be discharged. Recommend Tylenol Motrin as needed for home. We will give her 2 or 3 pain pills for breakthrough pain if needed. Crutches for comfort, and work note for tomorrow. Discussed red flags which to return, as well as signs and symptoms concerning for reflex and pathetic dystrophy which would require alteration of management if this does occur later in the course. I have extensively reviewed the treatment plan and discharge instructions with the patient. I have addressed all patient concerns at this time. The patient was made aware of what symptoms to monitor for that would warrant a return to the emergency department. Discussed the plan with the patient, they demonstrate verbal understanding and agreement with our assessment and plan at this time. The documentation in this chart was dictated using [employer] dictation software. Please excuse any dictation errors. FINDINGS: Bones/joints: Tibia and fibula are intact. Normal osseous mineralization. Knee and ankle joints are grossly normal. Soft tissues: Normal. IMPRESSION: No acute abnormality. Thank you for allowing us to participate in the care of your patient. Dictated and Authenticated by: Simon Goode MD 02/17/2021 10:07 PM Eastern Time ([place] & [place]) HPI General Date/Time Provider Initiated Documentation: 02/17/21 21:03. HPI Narrative: 25-year-old female with no significant past medical history except still or previous preeclampsia, currently on control, who presents today for evaluation of left sanchez pain. Patient states that 1 month ago she hit her tibia notably hard on the stairs, she had an x-ray at that time which showed no evidence of fracture. She was doing well except for some mild chronic pain over the sanchez until about 20 minutes prior to arrival when her 3-year-old fell fairly forcefully onto her left sanchez. She immediately developed severe aching pain from the anterior tibia at the previous site where she suffered injury, extending both proximally up towards the thigh and distally towards the ankle. No actual pain in any other location including the knee, however it was felt to be referred pain. She denies any long trips, surgeries or procedures. She denies any history of blood clots. She denies any numbness or tingling. No other complaints this time. Related Data Home Medications Medication Instructions Recorded Confirmed ibuprofen 600 mg tablet 600 mg PO QID PRN #30 tab 02/16/19 02/17/21 levonorgestrel 20 mcg/24 hours (6 1 device IY ONCE 05/12/19 02/17/21 yrs) 52 mg intrauterine device celecoxib 100 mg PO BID 02/17/21 02/17/21 citalopram 20 mg PO QAM 02/17/21 02/17/21 tramadol 50 mg PO QID 02/17/21 02/17/21 Previous Rx's Medication Instructions Recorded ibuprofen 600 mg tablet 600 mg PO QID PRN #30 tab 02/16/19 Allergies Allergy/AdvReac Type Severity Reaction Status Date / Time meperidine HCl [From Demerol] Allergy Intermediate Swelling/Ed Unverified 02/17/21 21:11 chaim General Stated Complaint: Orthopedic KATELYN: 4 Review of Systems All systems reviewed & are unremarkable except as noted in HPI and below [facility] Medical History (Updated 02/17/21 @ 21:59 by Hitesh Owens DO) Bradycardia 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/2013) HR 40-60 BPM delivery delivered 02/12/19. At term secondary to severe BP, H/A remote from delivery. Depression 2018 . Irregular heart beat LGSIL on Pap smear of cervix Lumbar disc lesion 4-L5 ? herniation of nucleus pulposis vs residual scaring from previous disk surgery. [place] [facility] [place]. Will need to f/u in pain clinic PP for eval of pain. Preeclampsia in period 11/05/2017. Treated with labetalol several weeks . 02/11/19. Presented in labor with elevated blood pressure. Rx MgSO4 and Labetalol PP. Right lumbar radiculopathy Vaginal discharge Surgical History Spinal L4and L5 repair Family History Mother Essential hypertension Hypothyroidism Mental disorder Anxiety and depression-Therapy and ? meds Father Substance abuse ?? Alcohol abuse 3 beers a day Sister Leukemia, acute, in remission Social History Smoking/Tobacco Use Status: Never Smoking risk assessment performed?: Yes Alcohol Intake: never Drug use: Never Substance use type: does not use Household members: significant other, children and other Details: Partner-[place]. [address]. 02/2019 [place]. 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 Date GA/Weeks # Outcome Route Wgt Sex Labor Lgth Anesthesia Location Prov Complic 11/05/17 38 No Successful vaginal Female 02/12/19 38 No Successful Female Delivery Date: 11/05/17 Rapid delivery. [place]. Treated with Labetalol for PP HTN. Verena Armstrong Delivery Date: 02/12/19 Arrived in labor with preeclampsia severe by BP criteria. No response to IV meds. PC/S. FCheryl Swann. D/C home with Labetalol for BP. Verena Armstrong Exam Narrative Exam Narrative: 1.Const: Well-nourished, Well-developed, appearing stated age 2.Eyes: PERRL, no conjunctival injection, and symmetrical lids. 3.ENT: Atraumatic external nose and ears. Moist MM. Neck: Symmetric, trachea midline, No thyromegaly. 4.CVS: +S1/S2, No murmurs or gallops. Peripheral pulses 2+ and equal in all extremities. Brisk capillary refill in all extremities. 5.RESP: Unlabored respiratory effort. Clear to auscultation bilaterally. No wheezes rales or rhonchi 6.GI: Soft, Nontender/Nondistended, No hepatosplenomegaly. No guarding or rebound. 7.MSK: Patient's left sanchez just slightly distal to the midshaft of the tibia demonstrates slightly raised periosteal site, likely secondary to healing from her previous injury. No calf tenderness, negative Homans' sign. No tenderness in the ankle or the knee. Mild bruising that appears old over the anterior left sanchez. Good muscle strength and movement for all components of the knee hip and ankle. Notable reproducible tenderness over the mid to distal tibial shaft. No fibular tenderness, no tenderness over the tibial plateau or fibular head. 8.Skin: Warm, Dry. No rashes or lesions. 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 Sensation grossly intact, no focal neurologic deficits. 10.Psych: (AAO) x3. Appropriate mood and affect Course Vital Signs Vital signs: Vital Signs Temperature 36.9 C 02/17/21 21:05 Pulse 80 02/17/21 21:05 Respiratory Rate 16 02/17/21 21:05 Blood Pressure 143/109 H 02/17/21 21:05 Pulse Oximetry 97 02/17/21 21:05 Temperature 36.9 C 02/17/21 21:05 Temperature Source Skin 02/17/21 21:05 Pulse 80 02/17/21 21:05 Respiratory Rate 16 02/17/21 21:05 Blood Pressure 143/109 H 02/17/21 21:05 Pulse Oximetry 97 02/17/21 21:05 Pain Level 8 02/17/21 21:05
[2021-02-17] MEDS: Lidocaine 5% Patch 1 PATCH TP (21:32)
[2021-02-17] MEDS: Acetaminophen 500 MG TAB 1000 MG PO (21:32)
[2021-02-17] MEDS: Ketorolac 30 MG/ML VIAL IM (21:33)
--- NOTE | 2021-02-17 22:08 | DI.VRAD_ITS ---
PROCEDURE INFORMATION: Exam: XR Left Tibia and Fibula Exam date and time: 02/17/2021 9:34 PM Age: 25 years old Clinical indication: Injury or trauma; Other: Ran into something; Blunt trauma; Left; Injury date: Few weeks ago; Injury details: Trauma to mid shaft, pain most of lower leg TECHNIQUE: Imaging protocol: XR Left tibia and fibula. Views: 2 views. COMPARISON: CR XR TIB/FIB LT 01/25/2021 1:22 PM FINDINGS: Bones/joints: Tibia and fibula are intact. Normal osseous mineralization. Knee and ankle joints are grossly normal. Soft tissues: Normal. IMPRESSION: No acute abnormality. Dictated and Authenticated by: Simon Goode MD. Ordering:STACIE Proctor MD
== END 2021-02-17 22:15 | disposition home or self-care (01) ==
PROVIDERS: Emergency Provider Student in an Organized Health Care Education/Training Program; PCP Family Medicine
DX: S80.12XA Contusion of left lower leg, initial encounter (principal); W50.0XXA Accidental hit or strike by another person, initial encounter
CPT/HCPCS: 81025; 96372; 99284; 73590; 99283; J1885

== ENCOUNTER 2021-08-12 11:26 | Outpatient (REF) | payer MEDICAID, SELFPAY ==
[2021-08-13 21:42] LABS: COVID-19 RT-PCR UVMMC Result Negative (Negative)
== END 2021-08-12 11:27 | disposition home or self-care (01) ==
LOC: LBN 11:26
PROVIDERS: PCP Family Medicine; Visit Provider Physician Assistant
DX: Z20.822 Contact with and (suspected) exposure to COVID-19 (principal); J06.9 Acute upper respiratory infection, unspecified
CPT/HCPCS: U0003

== ENCOUNTER 2022-03-07 21:01 | Emergency (ER) | payer MEDICAID, SELFPAY ==
[2022-03-07 21:11] VITALS: BP 169/71; PULSE 53; RESP 18; TEMP 36.7; O2SAT 100
--- NOTE | 2022-03-07 21:29 | W.ED.GENAD ---
Discharge Plan Disposition Patient Disposition: HOME Discharge Details Clinical Impression: Nausea & vomiting Primary Care Provider: Victorino Phelan ED Provider: Martin Valdez Home Meds and New Rx's Prescriptions: New ondansetron HCl 4 mg tablet 4 mg PO Q8H Qty: 10 0RF No Action Mirena 20 mcg/24 hours (5 yrs) 52 mg intrauterine device 1 device IY ONCE ibuprofen 600 mg tablet 600 mg PO QID PRN (Reason: pain) Qty: 30 0RF tramadol 50 mg tablet 50 mg PO QID Label Comments: TAKE 1 TABLET BY MOUTH EVERY 6 HOURS NEEDED FOR PAIN citalopram 20 mg tablet 20 mg PO QAM Label Comments: TAKE 1 TABLET BY MOUTH DAILY celecoxib 100 mg capsule 100 mg PO BID Discharge Instructions Instructions: Acute Nausea and Vomiting (ED) Additional Instructions: Please take the medications as prescribed. Are you having nausea please remember to take small portions of food and liquids many times a day Avoid irritants Please follow-up with your primary care doctor next week Discharge Data Discharge Date/Time-TO BE ENTERED AT DEPARTURE: 03/07/22 23:36 Medical Decision Making Well-appearing 26-year-old with (gravidarum. No vomiting in the emergency department. No nausea. Given dose of Zofran. Patient tolerating p.o. in the emergency department. Work-up from reviewed. Also within normal limits except for mild hypokalemia that was repleted in the emergency department.No UTI. No reason for further blood work. HPI General Date/Time Provider Initiated Documentation: 03/07/22 21:05. HPI Narrative: 26-year-old states that she woke up nauseous this morning. He states that she quantified as moderate. history of recurrent matinal episodes of feeling nauseous. Most of the time it resolves spontaneously but today she has been nauseous throughout the day unable to keep p.o. down. He has vomited few times. No sick contacts. No fevers no chills. No headaches. No abdominal pain. No diarrhea. No urinary symptoms. Has an IUD and does not believe that she is Related Data Home Medications Medication Instructions Recorded Confirmed ibuprofen 600 mg tablet 600 mg PO QID PRN pain #30 tabs 02/16/19 05/09/21 levonorgestrel 20 mcg/24 hours (7 1 device intrauterine ONCE 05/12/19 05/09/21 yrs) 52 mg intrauterine device (Mirena) celecoxib 100 mg capsule 100 mg PO BID 02/17/21 05/09/21 citalopram 20 mg tablet 20 mg PO QAM 02/17/21 05/09/21 tramadol 50 mg tablet 50 mg PO QID 02/17/21 05/09/21 ondansetron HCl 4 mg tablet 4 mg PO Q8H #10 tabs 03/07/22 Previous Rx's Medication Instructions Recorded ibuprofen 600 mg tablet 600 mg PO QID PRN pain #30 tabs 02/16/19 ondansetron HCl 4 mg tablet 4 mg PO Q8H #10 tabs 03/07/22 Allergies Allergy/AdvReac Type Severity Reaction Status Date / Time meperidine HCl [From Demerol] Allergy Intermediate Swelling/Ed Unverified 02/21/21 11:27 chaim General Stated Complaint: Nausea/Vomit/Diar KATELYN: 3 Review of Systems Narrative: Constitutional negative for fever or chills. Positive for fatigue and malaise. HEENT no sore throat. Cardiovascular no palpitations Respiratory no cough or shortness of breath GI see HPI see HPI MSK no myalgias no myalgias Skin no rashes Neuro no headaches, no dizziness, focal weakness. 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 At term secondary to severe BP, H/A remote from delivery. Lumbar disc lesion (Acute) 4-L5 ? herniation of nucleus pulposis vs residual scaring from previous disk surgery. [place] [facility] [place]. Will need to f/u in pain clinic PP for eval of pain. Right lumbar radiculopathy (Acute) S/P section (Acute) Severe preeclampsia (Acute) Bradycardia (Acute) Depression (Chronic) 2018 . Family History Mother Essential hypertension Hypothyroidism Mental disorder Anxiety and depression-Therapy and ? meds Father Substance abuse ?? Alcohol abuse 3 beers a day Sister Leukemia, acute, in remission Social History Smoking/Tobacco Use Status: Never Smoking risk assessment performed?: Yes Alcohol Intake: never Drug use: Never Substance use type: does not use Household members: significant other, children and other Details: Partner-Gallagher. 2018 [address]. 02/2019 [place]. 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 Date GA/Weeks # Outcome Route Wgt Sex Labor Lgth Anesthesia Location Prov Complic 11/05/17 38 No Successful vaginal Female 02/12/19 38 No Successful Female Delivery Date: 11/05/17 Last Updated by: Verena Armstrong M.D. Rapid delivery. [facility]. Treated with Labetalol for PP HTN. Delivery Date: 02/12/19 Last Updated by: Verena Armstrong M.D. Arrived in labor with preeclampsia severe by BP criteria. No response to IV meds. PC/S. Flora Swann. D/C home with Labetalol for BP. Exam Narrative Exam Narrative: Awake alert [place] x3 calm, no acute distress. Cooperative PERRLA EOMI MMM no nystagmus Cardiovascular regular rhythm and rate no murmurs Pulmonary clear to auscultation bilaterally GI soft nondistended nontender no CVAT Skin no rashes Neuro 2-12 grossly intact Extremities no edema Psych normal mood Course Vital Signs Vital signs: Vital Signs Temperature 36.7 C 03/07/22 21:11 Pulse 53 L 03/07/22 21:11 Respiratory Rate 18 03/07/22 21:11 Blood Pressure 169/71 H 03/07/22 21:11 Pulse Oximetry 100 03/07/22 21:11 Temperature 36.7 C 03/07/22 21:11 Temperature Source Oral 03/07/22 21:11 Pulse 53 L 03/07/22 21:11 Respiratory Rate 18 03/07/22 21:11 Blood Pressure 169/71 H 03/07/22 21:11 Pulse Oximetry 100 03/07/22 21:11 Pain Level 8 03/07/22 21:11
[2022-03-07] MEDS: Ondansetron 4 MG/2 ML VIAL IVP (21:48)
[2022-03-07] MEDS: Normal Saline 1,000 ML 1000 ML IV (21:48)
[2022-03-07 22:18] LABS: Bilirubin Negative (Negative); Blood Trace-intact (Negative); Clarity Clear (Clear); Glucose Negative (Negative); Ketones 40 mg/dL (Negative); Leukocyte Esterase Negative (Negative); Nitrite Negative (Negative); Specific Gravity 1.025 (1.005-1.025); Urobilinogen 0.2 EU/dL (Up TO 0.2)
[2022-03-07 22:24] LABS: Bacteria Rare HPF (Negative); C & S Indicated? No; Casts Negative LPF (Negative); Crystals Negative HPF (Negative); Epithelial Cells Moderate HPF (Negative); Mucus Moderate (Negative); WBC 0-2 HPF (0-5)
[2022-03-07] MEDS: FAMOTIDINE 20 MG in Normal Saline 100 ML 400 MG IVPB (22:36)
[2022-03-07] MEDS: Metoclopramide 10 MG/2 ML VIAL IVP (22:36)
[2022-03-07 23:20] VITALS: BP 124/72; PULSE 62; RESP 16; O2SAT 97
== END 2022-03-07 23:36 | disposition home or self-care (01) ==
PROVIDERS: Emergency Provider Emergency Medicine; PCP Family Medicine
DX: R11.2 Nausea with vomiting, unspecified (principal); E87.6 Hypokalemia
CPT/HCPCS: 81025; 96361; 96365; 96375; 99284; 81003; 81015; 99283; J2405; J2765

== ENCOUNTER 2022-03-18 19:02 | Outpatient (REF) | payer MEDICAID, SELFPAY ==
[2022-03-18 19:20] LABS: ALT 26 U/L (14-59); AST 15 U/L (15-37); Albumin 4.1 g/dL (3.4-5.0); Alkaline Phosphatase 62 U/L (46-116); Anion Gap 8.3 mmol/L (3-11); BUN 6 mg/dL (7-18); Bilirubin, Total 0.6 mg/dL (0.2-1.0); C-Reactive Protein 0.14 mg/dL (0.0-0.3); CO2 29.7 mmol/L (21.0-32.0); CREATININE 0.8 mg/dL (0.55-1.02); Calcium 9.6 mg/dL (8.5-10.1); Chloride 101 mmol/L (98-107); Glucose 77 mg/dL (74-106); Potassium 4.1 mmol/L (3.5-5.1); Sodium 139 mmol/L (136-145); Total Protein 7.1 g/dL (6.4-8.2)
[2022-03-18 19:25] LABS: Abs Immature Grans 0.04 10^3/uL (0.0-0.06); Absolute Basophil Count 0.09 10^3/uL (0.0-0.2); Absolute Lymphocyte Count 1.63 10^3/uL (1.2-3.4); Absolute Monocyte Count 0.91 10^3/uL (0.1-0.8); Absolute Neutrophil Count 7.04 10^3/uL (1.2-6.7); Basophils % 0.9; HCT 42.5 % (36.0-46.0); HGB 13.6 g/dL (11.2-15.7); Immature Grans % 0.4; Lymphocytes % 16.3; MCH 30.3 pg (27.0-33.0); MCV 95 fL (80-95); MPV 9.6 fL (8.0-11.0); Monocytes % 9.1; Neutrophils % 70.3; Platelet Count 514 10^3/uL (130-400); RBC 4.49 10^6/uL (3.93-5.22); RDW 13.3 % (11.7-14.6); RDW-SD 46.5 fL; WBC 10.01 10^3/uL (4.4-10.8)
== END 2022-03-18 19:03 | disposition home or self-care (01) ==
LOC: NCHCN 19:02
PROVIDERS: PCP Family Medicine; Visit Provider Family Medicine
DX: R53.83 Other fatigue (principal); R11.0 Nausea
CPT/HCPCS: 80053; 84443; 85025; 86140

== ENCOUNTER 2022-07-08 18:29 | Outpatient (REF) | payer MEDICAID, SELFPAY ==
[2022-07-08 20:55] LABS: Abs Immature Grans 0.06 10^3/uL (0.0-0.06); Absolute Eosinophil Count 0.24 10^3/uL (0.0-0.7); Absolute Monocyte Count 1.06 10^3/uL (0.1-0.8); Basophils % 0.8; Eosinophils % 1.9; HCT 42.4 % (36.0-46.0); HGB 14.7 g/dL (11.2-15.7); Immature Grans % 0.5; Lymphocytes % 18.3; MCH 30.9 pg (27.0-33.0); MCHC 34.7 % (32.0-36.0); MCV 89 fL (80-95); MPV 9.5 fL (8.0-11.0); Monocytes % 8.4; Neutrophils % 70.1; Platelet Count 542 10^3/uL (130-400); RBC 4.76 10^6/uL (3.93-5.22); RDW 11.8 % (11.7-14.6); RDW-SD 38.1 fL; WBC 12.59 10^3/uL (4.4-10.8)
[2022-07-08 20:56] LABS: Absolute Neutrophil Count 8.83 10^3/uL (1.2-6.7)
== END 2022-07-08 18:30 | disposition home or self-care (01) ==
LOC: NCHCN 18:29
PROVIDERS: PCP Family Medicine; Visit Provider Family Medicine
DX: D47.3 Essential (hemorrhagic) thrombocythemia (principal)
CPT/HCPCS: 85025

== ENCOUNTER 2022-07-17 06:01 | Emergency (ER) | payer MEDICAID, SELFPAY ==
[2022-07-17 06:04] VITALS: BP 160/103; PULSE 58; RESP 18; TEMP 36.2; O2SAT 100
--- NOTE | 2022-07-17 06:17 | W.ED.GENAD ---
Discharge Plan Disposition Patient Disposition: HOME Condition: Stable Discharge Details Clinical Impression: Nausea, vomiting and diarrhea Primary Care Provider: Victorino Phelan ED Provider: Torres Romo Home Meds and New Rx's Prescriptions: New ondansetron 4 mg tablet,disintegrating 4 mg PO Q8H PRNQty: 7 0RF Continued Mirena 20 mcg/24 hours (5 yrs) 52 mg intrauterine device 1 device IY ONCE fluoxetine 20 mg capsule 1 cap PO 1XD Label Comments: TAKE 2 CAPSULES BY MOUTH EVERY DAY bupropion HCl 300 mg tablet extended release 24 hr 1 tab PO 1XD Label Comments: TAKE 1 TABLET BY MOUTH EVERY MORNING Vyvanse 30 mg capsule 1 cap PO 1XD Label Comments: TAKE 1 CAPSULE BY MOUTH EVERY DAY Discharge Instructions Additional Instructions: Please take Zofran as prescribed. Drink small amounts of fluid often in order to stay hydrated. Please contact your primary care physician to arrange follow-up. Return to the ER immediately for any worsening or new concerning symptoms. Referrals: Victorino Phelan [Primary Care Provider] - Discharge Data Discharge Date/Time-TO BE ENTERED AT DEPARTURE: 07/17/22 08:00 Medical Decision Making 619 --27-year-old female with history of chronic episodes of nausea and vomiting over the past 1 year, here with acute nausea and vomiting this morning. Plan to treat with antiemetic Zofran IV as well as IV fluid bolus for dehydration. Abdominal exam is benign. --I considered electrolyte abnormalities biliary dysfunction. Labs reviewed and nondiagnostic. -- Patient reassessed and symptoms improved. Plan for discharge with outpatient follow-up. Usual customary discharge instructions reviewed with the patient. Lab Data Lab results reviewed: Yes I reviewed the patient's lab results. Labs: Laboratory Tests Range/Units 07/17/22 07/17/22 06:30 06:30 WBC (4.4-10.8) 10^3/uL 18.34 H RBC (3.93-5.22) 10^6/uL 4.70 Hgb (11.2-15.7) g/dL 14.3 Hct (36.0-46.0) % 41.4 MCV (80-95) fL 88 MCH (27.0-33.0) pg 30.4 MCHC (32.0-36.0) % 34.5 RDW (11.7-14.6) % 11.7 Plt Count (130-400) 10^3/uL 512 H MPV (8.0-11.0) fL 8.7 Immature Gran % 0.5 Neutrophils % 87.7 Lymphocytes % 7.1 Monocytes % 4.0 Eosinophils % 0.4 Basophils % 0.3 Nucleated RBC % (0.0-0.3) % 0.0 Absolute Neutrophils (1.2-6.7) 10^3/uL 16.08 H Absolute Lymphocytes (1.2-3.4) 10^3/uL 1.30 Absolute Monocytes (0.1-0.8) 10^3/uL 0.73 Absolute Eosinophils (0.0-0.7) 10^3/uL 0.07 Absolute Basophils (0.0-0.2) 10^3/uL 0.06 Sodium (136-145) mmol/L 139 Potassium (3.5-5.1) mmol/L 4.0 Chloride (98-107) mmol/L 101 Carbon Dioxide (21.0-32.0) mmol/L 25.0 Anion Gap (3-11) mmol/L 13.0 H BUN (7-18) mg/dL 16 Creatinine (0.55-1.02) mg/dL 0.7 Est GFR (CKD-EPI 2020) (mL/min/1.73m2) 122.25 Glucose (74-106) mg/dL 143 H Calcium (8.5-10.1) mg/dL 9.6 Total Bilirubin (0.2-1.0) mg/dL 0.9 AST (15-37) U/L 15 ALT (14-59) U/L 33 Alkaline Phosphatase (46-116) U/L 67 Total Protein (6.4-8.2) g/dL 8.4 H Albumin (3.4-5.0) g/dL 4.7 HPI General Date/Time Provider Initiated Documentation: 07/17/22 06:06. Limitations to Documentation: no limitations. Information obtained by: patient. HPI Narrative: 27-year-old female presents with chief complaint of nausea with associated vomiting. Symptoms started this morning and have persisted. She feels dehydrated. Symptoms are severe. Patient is requesting Zofran. She has no associated abdominal pain. Patient is she has chronic nausea and vomiting over the past 1 year. Episodes are irregular and occurring approximately once per week. Her primary care physician has been working with her to determine etiology. Patient does smoke marijuana but that she does this infrequently. No alcohol use. Related Data Home Medications Medication Instructions Recorded Confirmed levonorgestrel 20 mcg/24 hours (7 1 device intrauterine ONCE 05/12/19 07/17/22 yrs) 52 mg intrauterine device (Mirena) bupropion HCl 300 mg 24 hr tablet, 1 tab PO 1XD 07/17/22 07/17/22 extended release fluoxetine 20 mg capsule 1 cap PO 1XD 07/17/22 07/17/22 lisdexamfetamine 30 mg capsule 1 cap PO 1XD 07/17/22 07/17/22 (Vyvanse) ondansetron 4 mg disintegrating 4 mg PO Q8H PRN #7 tabs 07/17/22 tablet Previous Rx's Medication Instructions Recorded ondansetron 4 mg disintegrating 4 mg PO Q8H PRN #7 tabs 07/17/22 tablet Allergies Allergy/AdvReac Type Severity Reaction Status Date / Time meperidine HCl [From Demerol] Allergy Intermediate Swelling/Ed Unverified 07/17/22 06:17 chaim General Stated Complaint: Nausea/Vomit/Diar KATELYN: 3 Review of Systems All systems reviewed & are unremarkable except as noted in HPI and below Constitutional Constitutional: Denies fever(s) Gastrointestinal Gastrointestinal: Reports as per HPI PFSH All Active Problems (Updated 07/17/22 @ 07:37 by Torres Romo MD) Nausea, vomiting and diarrhea (Acute) Encounter for screening laboratory testing for COVID-19 virus (Acute) Contusion of bone (Acute) Contusion of soft tissue (Acute) Contusion (Acute) Pain in left tibia (Acute) Encounter for screening for other viral diseases (Acute) Vaginal discharge (Acute) Pelvic pain (Acute) Pelvic pain (Acute) IUD (intrauterine device) in place (Acute) Encounter for IUD insertion (Acute) 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 At term secondary to severe BP, H/A remote from delivery. Lumbar disc lesion (Acute) 4-L5 ? herniation of nucleus pulposis vs residual scaring from previous disk surgery. Eval at [facility] [place] with [place] w/o contrast. Will need to f/u in pain clinic PP for eval of pain. Right lumbar radiculopathy (Acute) S/P section (Acute) Severe preeclampsia (Acute) Bradycardia (Acute) Depression (Chronic) 2018 . Family History Mother Essential hypertension Hypothyroidism Mental disorder Anxiety and depression-Therapy and ? meds Father Substance abuse ?? Alcohol abuse 3 beers a day Sister Leukemia, acute, in remission Social History Smoking/Tobacco Use Status: Never Smoking risk assessment performed?: Yes Alcohol Intake: current Alcohol Intake frequency: holidays/special occasions only Drug use: Occasionally Substance use type: marijuana Household members: significant other, children and other Details: Partner-Hector. 2018 [address]. 02/2019 [place]. 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 Date GA/Weeks # Preg Succ Route Wgt Sex Labor Lgth Anesthesia Location Prov Complic 11/05/17 38 No vaginal Female 02/12/19 38 No Female Delivery Date: 11/05/17 Last Updated by: Verena Armstrong M.D. Rapid delivery. [facility]. Treated with Labetalol for PP HTN. Delivery Date: 02/12/19 Last Updated by: Verena Armstrong M.D. Arrived in labor with preeclampsia severe by BP criteria. No response to IV meds. PC/S. FCheryl Swann. D/C home with Labetalol for BP. Exam Const General: cooperative and no acute distress HENMT Mouth: mucous membranes dry Eyes Conjunctivae: normal conjunctivae Sclera: normal sclerae Neck Neck: trachea midline and supple Resp Auscultation: clear to auscultation bilaterally, no rales, no rhonchi and no wheezes Cardio Rate: regular rate and not tachycardic Rhythm: regular rhythm GI Palpation: soft, not firm, no guarding, no masses, not rigid and nontender Skin General skin exam: no rashes or lesions noted Neuro General: patient alert, patient awake and tone normal Extrem General: no edema Psych Appearance: grossly normal Mental Status: mental status grossly normal Course Vital Signs Vital signs: Vital Signs Temperature 36.2 C L 07/17/22 06:04 Pulse 58 L 07/17/22 06:04 Respiratory Rate 18 07/17/22 06:04 Blood Pressure 160/103 H 07/17/22 06:04 Pulse Oximetry 100 07/17/22 06:04 Temperature 36.2 C L 07/17/22 06:04 Temperature Source Skin 07/17/22 06:04 Pulse 58 L 07/17/22 06:04 Respiratory Rate 18 07/17/22 06:04 Blood Pressure 160/103 H 07/17/22 06:04 Blood Pressure Position Sitting 07/17/22 06:04 Pulse Oximetry 100 07/17/22 06:04 Oxygen Delivery Method Room Air 07/17/22 06:04 Oxygen Flow Rate 0 07/17/22 06:04 Pain Level 0 07/17/22 06:04
[2022-07-17 06:24] VITALS: BP 150/83; PULSE 44
[2022-07-17] MEDS: Lactated Ringers 1,000 ML 1000 ML IV (06:31)
[2022-07-17] MEDS: Ondansetron 4 MG/2 ML VIAL IVP (06:33)
[2022-07-17 06:44] LABS: Absolute Basophil Count 0.06 10^3/uL (0.0-0.2); Absolute Eosinophil Count 0.07 10^3/uL (0.0-0.7); Basophils % 0.3; Eosinophils % 0.4; HCT 41.4 % (36.0-46.0); HGB 14.3 g/dL (11.2-15.7); Immature Grans % 0.5; Lymphocytes % 7.1; MCH 30.4 pg (27.0-33.0); MCHC 34.5 % (32.0-36.0); MCV 88 fL (80-95); MPV 8.7 fL (8.0-11.0); Neutrophils % 87.7; Platelet Count 512 10^3/uL (130-400); RDW 11.7 % (11.7-14.6); RDW-SD 37.7 fL; WBC 18.34 10^3/uL (4.4-10.8)
[2022-07-17 06:45] LABS: Absolute Monocyte Count 0.73 10^3/uL (0.1-0.8); Absolute Neutrophil Count 16.08 10^3/uL (1.2-6.7)
[2022-07-17 07:02] LABS: ALT 33 U/L (14-59); AST 15 U/L (15-37); Albumin 4.7 g/dL (3.4-5.0); Alkaline Phosphatase 67 U/L (46-116); BUN 16 mg/dL (7-18); Bilirubin, Total 0.9 mg/dL (0.2-1.0); CREATININE 0.7 mg/dL (0.55-1.02); Calcium 9.6 mg/dL (8.5-10.1); Chloride 101 mmol/L (98-107); Estimated GFR 122.25 (mL/min/1.73m2); Glucose 143 mg/dL (74-106); Sodium 139 mmol/L (136-145); Total Protein 8.4 g/dL (6.4-8.2)
[2022-07-17 07:52] VITALS: BP 158/90; PULSE 40; TEMP 36.3; O2SAT 100
[2022-07-17] MEDS: Ondansetron O.D.T. 4 MG TABEF PO (07:54)
== END 2022-07-17 08:00 | disposition home or self-care (01) ==
PROVIDERS: Emergency Provider Student in an Organized Health Care Education/Training Program; PCP Family Medicine
DX: E86.0 Dehydration (principal)
CPT/HCPCS: 80053; 96361; 96374; 99284; 85025; J2405

== ENCOUNTER 2022-08-01 16:44 | Outpatient (REF) | payer MEDICAID, SELFPAY | END 2022-08-01 16:45 | disposition home or self-care (01) | LOC: LBN 16:44 | PROVIDERS: PCP Family Medicine; Visit Provider Physician Assistant Medical | DX: L02.214 Cutaneous abscess of groin (principal) | CPT/HCPCS: 87077; 87070; 87186; 87205 ==

== ENCOUNTER 2022-11-25 13:14 | Outpatient (CLI) | payer MEDICAID, SELFPAY ==
--- NOTE | 2022-11-25 | DI.CT_ITS ---
Exam(s) CT HEAD WO EXAM: CT HEAD WO CLINICAL HISTORY: HEADACHE R51.9, X 5 DAYS W/ NAUSEA. TECHNIQUE: Imaging Protocol: Axial computed tomography images with coronal and sagittal reformatted images were created and reviewed COMPARISON: No exams were available for comparison FINDINGS: There are no skull fractures. There is no fluid in the visualized paranasal sinuses. There is no evidence of intracranial hemorrhage, mass effect, or shift of midline structures. There are no extra-axial fluid collections. The ventricles are not enlarged or shifted and there is no blo od within the ventricular system nor within the basal cisterns. IMPRESSION: No acute intracranial findings on this noninfused CT scan of the brain. RADIATION DOSE DELIVERED: 729.22mGy.cm Total DLP DATA REPOSITORY: All CT scans at this facility are submitted to the National Radiology Data Registry (NRDR) Dose Index Registry (DIR) with the [employer] (ACR). RADIATION OPTIMIZATION: All CT scans at this facility use at least one of these dose optimization te chniques: automated exposure control; mA and/or kV adjustment per patient size (includes targeted exa ms where dose is matched to clinical indication); or iterative reconstruction.
== END 2022-11-25 13:34 ==
PROVIDERS: PCP Family Medicine; Visit Provider Family Medicine
DX: R51.9 Headache, unspecified (principal); R11.0 Nausea
CPT/HCPCS: 70450

== ENCOUNTER 2023-02-13 14:45 | Outpatient (REF) | payer MEDICAID, SELFPAY ==
[2023-02-13 15:44] LABS: Abs Immature Grans 0.05 10^3/uL (0.0-0.06); Absolute Basophil Count 0.06 10^3/uL (0.0-0.2); Absolute Eosinophil Count 0.24 10^3/uL (0.0-0.7); Absolute Monocyte Count 0.64 10^3/uL (0.1-0.8); Absolute Neutrophil Count 6.65 10^3/uL (1.2-6.7); Basophils % 0.7; Eosinophils % 2.7; HCT 40.7 % (36.0-46.0); HGB 13.9 g/dL (11.2-15.7); Immature Grans % 0.6; Lymphocytes % 14.5; MCH 31.2 pg (27.0-33.0); MCHC 34.2 % (32.0-36.0); MCV 91 fL (80-95); MPV 9.4 fL (8.0-11.0); Monocytes % 7.2; Neutrophils % 74.3; Platelet Count 526 10^3/uL (130-400); RBC 4.46 10^6/uL (3.93-5.22); RDW 12.5 % (11.7-14.6); RDW-SD 41.5 fL; WBC 8.94 10^3/uL (4.4-10.8)
[2023-02-13 16:03] LABS: Iron 113 ug/dL (50-170); Total Iron Binding Capacity 371 ug/dL (250-450); Transferrin Sat 30 % (15-50)
[2023-02-16 10:19] LABS: HIV-1/2 Ag & Ab Screen Negative (Negative)
[2023-02-16 10:22] LABS: Hepatitis B Surface Ag Negative (Negative)
[2023-02-16 10:29] LABS: Lyme Ab w Rflx to Lyme Confirm Negative (Negative)
[2023-02-16 10:32] LABS: Hepatitis C Ab w Rflx HCV PCR Negative (Negative)
== END 2023-02-13 14:46 | disposition home or self-care (01) ==
LOC: NCHCN 14:45
PROVIDERS: PCP Family Medicine; Visit Provider Family Medicine
DX: Z11.59 Encounter for screening for other viral diseases (principal); D47.3 Essential (hemorrhagic) thrombocythemia; D72.828 Other elevated white blood cell count; Z11.4 Encounter for screening for human immunodeficiency virus [HIV]; Z11.8 Encounter for screening for other infectious and parasitic diseases
CPT/HCPCS: 86803; 87340; 87389; 83540; 83550; 85025; 86618

== ENCOUNTER 2023-05-20 14:12 | Outpatient (CLI) | payer MEDICAID, SELFPAY | END 2023-05-20 14:13 | disposition home or self-care (01) | LOC: LBO 14:12 | PROVIDERS: PCP Family Medicine; Visit Provider Advanced Practice Midwife | DX: Z32.01 Encounter for pregnancy test, result positive (principal); Z97.5 Presence of (intrauterine) contraceptive device | CPT/HCPCS: 36415; 84702 ==

== ENCOUNTER → 2023-05-25 02:20 | Outpatient (CLI) | payer MEDICAID, SELFPAY ==
--- NOTE | 2023-05-25 07:45 | DI.US_ITS ---
Exam(s) US OB 1ST TRIMESTER EXAM: US OB 1ST TRIMESTER CLINICAL HISTORY: 6 wk gestation,IUD STRINGS LOST,? IUD IN UTERUS. TECHNIQUE: First trimester obstetrical ultrasound was performed. COMPARISON: US US PELVIS TRANSVAGINAL from 03/23/2020 FINDINGS: There is an intrauterine gestational sac which contains a yolk sac and viable pole which exhibi ts heart rate of 124 bpm. [place]-rump length measurement is 8 mm, corresponding to 6 weeks and 5 days gestational age. There is no evidence of obvious subchorionic hemorrhage. Maternal ovaries: Right ovary 4.3 x 2 1 x 2.2 cm. Left ovary measures 3.7 x 1.6 x 2.1 cm No significant ovarian masses evident. Small amount of fluid in the cul-de-sac noted. IMPRESSION:: Single viable intrauterine gestation which is approximately 6 weeks and 5 days gestatio nal age by crown rump length measurement, implying LEONEL of January 13, 2024. There is no evidence of subchorionic hemorrhage. No significant ovarian findings. Small amount of fluid noted in the cul-de-sac. DATA REPOSITORY:
== END ==
PROVIDERS: PCP Family Medicine; Visit Provider Advanced Practice Midwife
DX: T83.32XA Displacement of intrauterine contraceptive device, initial encounter (principal); Z32.01 Encounter for pregnancy test, result positive
CPT/HCPCS: 76801

== ENCOUNTER 2023-06-25 14:57 | Outpatient (CLI) | payer MEDICAID, SELFPAY ==
[2023-06-25 14:04] LABS: HCG Quant, Pregnancy 283 mIU/mL (1-3)
== END 2023-06-25 14:58 | disposition home or self-care (01) ==
LOC: LBO 14:59
PROVIDERS: PCP Family Medicine; Visit Provider Obstetrics & Gynecology
DX: Z32.01 Encounter for pregnancy test, result positive (principal)
CPT/HCPCS: 36415; 84702

== ENCOUNTER 2023-07-14 12:59 | Outpatient (CLI) | payer MEDICAID, SELFPAY ==
[2023-07-14 14:41] LABS: HCG Quant, Pregnancy 29 mIU/mL (1-3)
== END 2023-07-14 13:00 | disposition home or self-care (01) ==
LOC: LBO 12:59
PROVIDERS: Obstetrics & Gynecology; PCP Family Medicine; Visit Provider Obstetrics & Gynecology Gynecology
DX: Z32.01 Encounter for pregnancy test, result positive (principal)
CPT/HCPCS: 36415; 84702

== ENCOUNTER 2023-07-22 15:42 | Outpatient (REF) | payer MEDICAID, SELFPAY ==
[2023-07-23 15:02] LABS: Chlamydia Result Negative (Negative); GC Result Negative (Negative)
== END 2023-07-22 15:43 | disposition home or self-care (01) ==
LOC: LBN 15:42
PROVIDERS: PCP Family Medicine; Visit Provider Obstetrics & Gynecology
DX: Z11.3 Encounter for screening for infections with a predominantly sexual mode of transmission (principal)
CPT/HCPCS: 87491; 87591

== ENCOUNTER 2024-10-20 13:46 | Emergency (ER) | payer SELFPAY ==
[2024-10-20 13:56] VITALS: BP 150/93; PULSE 66; RESP 16; TEMP 36.6; O2SAT 96
[2024-10-20] MEDS: Ondansetron O.D.T. 4 MG TABEF 8 MG PO (14:18)
--- NOTE | 2024-10-20 14:25 | ED.GENADUL_ITS ---
Discharge Plan Disposition Patient Disposition: Home Condition: Stable Discharge Details Clinical Impression: Abdominal pain, vomiting, and diarrhea Primary Care Provider: None,None ED Provider: Tiffanie Sanchez Home Meds and New Rx's Prescriptions: New ondansetron 4 mg tablet,disintegrating 4 mg PO Q6H PRN (Reason: nausea and vomiting) Qty: 30 0RF No Action bupropion HCl 300 mg tablet extended release 24 hr 1 tab PO 1XD Patient Comments: TAKE 1 TABLET BY MOUTH EVERY MORNING lisdexamfetamine [Vyvanse] 30 mg capsule 1 cap PO 1XD Patient Comments: TAKE 1 CAPSULE BY MOUTH EVERY DAY Discharge Instructions Instructions: Nausea and Vomiting, Adult ED Additional Instructions: Please take Zofran as needed and continue to stay hydrated. Advance diet slowly. Return if you are unable to keep anything down. HPI General Date/Time Provider Initiated Documentation: 10/20/24 13:58 . Limitations to Documentation: no limitations . Information obtained by: patient . HPI Narrative: 29-year-old female with out significant past medical history presents for evaluation of vomiting and diarrhea. She reports onset of symptoms at 5 PM last night. She reports persistent symptoms. She has not had any medication for symptom relief. and both children had similar symptoms in the preceding days and the patient is lasted for family members to get this illness. She reports some mild epigastric abdominal pain, worse when she vomits. Denies any fever. Related Data Home Medications ?Medication ?Instructions ?Recorded ?Confirmed bupropion HCl 300 mg 24 hr tablet, 1 tab PO 1XD 07/17/22 05/20/23 extended release lisdexamfetamine 30 mg capsule 1 cap PO 1XD 07/17/22 05/20/23 (Vyvanse) ondansetron 4 mg disintegrating 4 mg PO Q6H PRN nausea and 10/20/24 tablet vomiting #30 tabs Previous Rx's ?Medication ?Instructions ?Recorded ondansetron 4 mg disintegrating 4 mg PO Q6H PRN nausea and 10/20/24 tablet vomiting #30 tabs Allergies Allergy/AdvReac Type Severity Reaction Status Date / Time meperidine HCl (From Demerol) Allergy Intermediate Swelling/Ed Unverified 09/03 11:09 chaim General Stated Complaint: Nausea/Vomit/Diar KATELYN: 3 Exam Narrative Exam Narrative: Review of Systems: All systems reviewed & are unremarkable except as noted in HPI and below Well-developed, no acute distress NCAT PERRL, normal conjunctiva Moist mucous membranes RRR Unlabored respiratory effort Nondistended abdomen no tenderness guarding or rebound Course Vital Signs Vital signs: Vital Signs Temperature 36.6 C 10/20/24 13:56 Pulse 66 10/20/24 13:56 Respiratory Rate 16 10/20/24 13:56 Blood Pressure 150/93 H 10/20/24 13:56 Pulse Oximetry 96 10/20/24 13:56 Temperature 36.6 C 10/20/24 13:56 Temperature Source Oral 10/20/24 13:56 Pulse 66 10/20/24 13:56 Respiratory Rate 16 10/20/24 13:56 Blood Pressure 150/93 H 10/20/24 13:56 Pulse Oximetry 96 10/20/24 13:56 Medical Decision Making Emergent evaluation of vomiting and diarrheal illness. Patient likely acquired this illness from her other family members with similar symptoms. At this time she does not have significant signs of clinical dehydration. Will give oral Zofran and reassess p.o. challenge Patient tolerating p.o. after Zofran. Feeling much better. Will discharge with prescription for Zofran and some take-home pills were provided to her as well. Return precautions advised. Recommend close follow-up with PCP as needed. 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 herniation of nucleus pulposis vs residual scaring from previous disk surgery. Eval [place] [facility] [place] with MRI w/o contrast. Will need to f/u in pain clinic PP for eval of pain. Right lumbar radiculopathy (Acute) Severe preeclampsia (Acute) Bradycardia (Acute) Depression (Chronic) 2018 . Medical History delivery delivered 02/12/19. At term secondary to severe BP, H/A remote from delivery. Preeclampsia in period 11/05/2017. Treated with labetalol several weeks . 02/11/19. Presented in labor with elevated blood pressure. Rx MgSO4 and Labetalol PP. Bradycardia 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/2013) HR 40-60 BPM Surgical History S/P section Family History Mother Essential hypertension Hypothyroidism Mental disorder Anxiety and depression-Therapy and ? meds Father Substance abuse ?? 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 Date GA/Weeks # Preg Succ Route Wgt Sex Labor Lgth Anesth esia Location [facility] 11/05/17 38 No vaginal Female 02/12/19 38 No Female Delivery Date: 11/05/17 Last Updated by: Verena Armstrong M.D. Rapid delivery. [facility]. Treated with Labetalol for PP HTN. Delivery Date: 02/12/19 Last Updated by: Verena Armstrong M.D. Arrived in labor with preeclampsia severe by BP criteria. No response to IV meds. PC/Kaya Swann. D/C home with Labetalol for BP.
[2024-10-20 15:29] VITALS: BP 124/68; PULSE 65; RESP 20; TEMP 36.7; O2SAT 98
[2024-10-20] MEDS: Ondansetron O.D.T. 4 MG TABEF, 3 TABS/BTL PO (15:29)
== END 2024-10-20 15:29 | disposition home or self-care (01) ==
LOC: ER 15:26
PROVIDERS: Emergency Provider Emergency Medicine
DX: R11.10 Vomiting, unspecified (principal); R19.7 Diarrhea, unspecified; R10.9 Unspecified abdominal pain
CPT/HCPCS: 99283

== ENCOUNTER 2025-01-29 20:04 | Emergency (ER) | payer SELFPAY ==
[2025-01-29] VITALS (31 sets, daily range): BP systolic 131–197; BP diastolic 72–107; PULSE 41–73; RESP 9–22; TEMP 36.6; O2SAT 98
[2025-01-29 20:53] LABS: Abs Immature Grans 0.09 10^3/uL (0.0-0.06); Absolute Basophil Count 0.06 10^3/uL (0.0-0.2); Absolute Eosinophil Count 0.11 10^3/uL (0.0-0.7); Absolute Lymphocyte Count 2.06 10^3/uL (1.2-3.4); Absolute Monocyte Count 1.43 10^3/uL (0.1-0.8); Basophils % 0.4 %; Eosinophils % 0.7 %; HCT 40.6 % (36.0-46.0); HGB 13.7 g/dL (11.2-15.7); Immature Grans % 0.6 %; Lymphocytes % 12.8 %; MCHC 33.7 % (32.0-36.0); MCV 89 fL (80-95); MPV 8.6 fL (8.0-11.0); Monocytes % 8.9 %; Neutrophils % 76.6 %; Platelet Count 571 10^3/uL (130-400); RBC 4.56 10^6/uL (3.93-5.22); RDW 12.6 % (11.7-14.6); RDW-SD 41.1 fL; WBC 16.09 10^3/uL (4.4-10.8)
[2025-01-29] MEDS: Normal Saline 1,000 ML 1000 ML IV ×2 (20:58→23:27)
[2025-01-29] MEDS: Metoclopramide 10 MG/2 ML VIAL IVP (20:59)
[2025-01-29 21:01] LABS: Absolute Neutrophil Count 12.32 10^3/uL (1.2-6.7)
[2025-01-29 21:05] LABS: Bilirubin Small (Negative); Blood Trace-lysed (Negative); Clarity Clear (Clear); Glucose Negative (Negative); Ketones Trace mg/dL (Negative); Leukocyte Esterase Negative (Negative); Nitrite Negative (Negative); Specific Gravity >= 1.030 (1.005-1.025)
--- NOTE | 2025-01-29 21:15 | RT.EKG_ITS ---
APPROVED REPORT Exam: Resting ECG Reason for Exam: hypokalemia Patient Location: E HR:45 bpm ECG Measurements Heart Rate 45 AXIS [place] 203 P 31 QRSd 99 QRS 6 QT 471 T 41 QTc 407 Conclusion Sinus bradycardia...rate< [address] segment or T wave abnormalities to suggest occlusive [place]
[2025-01-29 21:17] LABS: ALT 22 U/L (14-59); AST 14 U/L (15-37); Albumin 4.2 g/dL (3.4-5.0); Alkaline Phosphatase 71 U/L (46-116); Anion Gap 6.7 mmol/L (3-11); BUN 7 mg/dL (7-18); Bilirubin, Total 0.6 mg/dL (0.2-1.0); CO2 31.3 mmol/L (21.0-32.0); CREATININE 0.7 mg/dL (0.55-1.02); Calcium 9.6 mg/dL (8.5-10.1); Chloride 99 mmol/L (98-107); Estimated GFR 120.74 (mL/min/1.73m2); Glucose 116 mg/dL (74-106); Magnesium 1.8 mg/dL (1.8-2.4); Sodium 137 mmol/L (136-145); Total Protein 8.1 g/dL (6.4-8.2)
[2025-01-29 21:21] LABS: Bacteria Moderate HPF (Negative); C & S Indicated? No; Casts Negative LPF (Negative); Crystals Negative HPF (Negative); Epithelial Cells Rare HPF (Negative); Mucus Heavy (Negative); RBC 0-2 HPF (0-2); WBC 0-2 HPF (0-5)
[2025-01-29 21:23] LABS: Potassium 2.8 mmol/L (3.5-5.1)
--- NOTE | 2025-01-29 21:43 | ED.GENADUL_ITS ---
Discharge Plan Discharge Details Chief Complaint: Nausea/Vomit/Diar Primary Care Provider: None,None ED Provider: Miladys Llanes Home Meds and New Rx's Prescriptions: No Action ondansetron 4 mg tablet,disintegrating 4 mg PO Q6H PRN (Reason: nausea and vomiting) Qty: 14 4RF bupropion HCl 300 mg tablet extended release 24 hr 1 tab PO 1XD Patient Comments: TAKE 1 TABLET BY MOUTH EVERY MORNING lisdexamfetamine [Vyvanse] 30 mg capsule 1 cap PO 1XD Patient Comments: TAKE 1 CAPSULE BY MOUTH EVERY DAY ondansetron 4 mg tablet,disintegrating 4 mg PO Q6H PRN (Reason: nausea and vomiting) Qty: 30 0RF HPI General Mode of arrival: ambulatory . Date/Time Provider Initiated Documentation: 01/29/25 20:19 . Limitations to Documentation: no limitations . Information obtained by: patient . HPI Narrative: 29yo F currently 9 weeks gestation by LMP, no US yet his (scheduled 02/09), history of severe hyperemesis gravidurum, presenting for N/V. Has been nauseated for the past several weeks. Started with frequent vomiting 2-3 days ago which has been persistent. Not able to keep down fluids despite home zofran. No abdominal pain or vaginal discharge. No diarrhea. Emesis is non- bloody, non-bilious. Symptoms started around a similar gestational age with her prior pregnancies and persisted throughout. Feels slightly lightheaded with ambulation; no syncope. No sick contacts. Otherwise in her usual state of health with no fevers, chills, rash, dysuria, hematuria, chest pain, shortness of breath, or other concerns. Related Data Home Medications ?Medication ?Instructions ?Recorded ?Confirmed bupropion HCl 300 mg 24 hr tablet, 1 tab PO 1XD 07/17/22 01/29/25 extended release lisdexamfetamine 30 mg capsule 1 cap PO 1XD 07/17/22 01/29/25 (Vyvanse) ondansetron 4 mg disintegrating 4 mg PO Q6H PRN nausea and 10/20/24 01/29/25 tablet vomiting #30 tabs ondansetron 4 mg disintegrating 4 mg PO Q6H PRN nausea and 01/28/25 01/29/25 tablet vomiting #14 tabs Previous Rx's ?Medication ?Instructions ?Recorded ondansetron 4 mg disintegrating 4 mg PO Q6H PRN nausea and 10/20/24 tablet vomiting #30 tabs ondansetron 4 mg disintegrating 4 mg PO Q6H PRN nausea and 01/28/25 tablet vomiting #14 tabs Allergies Allergy/AdvReac Type Severity Reaction Status Date / Time meperidine HCl (From Demerol) Allergy Intermediate Swelling/Ed Unverified 01/29/25 20:27 chaim General Stated Complaint: Nausea/Vomit/Diar KATELYN: 3 Review of Systems Narrative: see HPI Exam Narrative Exam Narrative: General: Alert, non-toxic, well nourished, in no acute distress. Head: Normocephalic, atraumatic Neck: Trachea midline, ?Neck supple. ENT: ?Dry MM.? No oropharygeal lesions or exudate. Cardiac: ?RRR, no murmurs appreciated Resp: No respiratory distress. CTAB. Abd: ?Soft, non-distended, nontender : ?No suprapubic tenderness. No CVA tenderness. Extremities: ?No deformities.? No peripheral edema. Neurologic: GCS 15. ? Moves all extremities freely against gravity Course Vital Signs Vital signs: Vital Signs Temperature 36.6 C 01/29/25 20:23 Pulse 52 L 01/29/25 20:23 Respiratory Rate 18 01/29/25 20:23 Blood Pressure 138/90 01/29/25 20:23 Pulse Oximetry 98 01/29/25 20:23 Temperature 36.6 C 01/29/25 20:26 Temperature Source Oral 01/29/25 20:23 Pulse 48 L 01/29/25 21:16 Pulse 51 L 01/29/25 21:16 Respiratory Rate 19 01/29/25 21:16 Blood Pressure 164/104 H 01/29/25 21:16 Blood Pressure Mean 125 01/29/25 21:16 Pulse Oximetry 98 01/29/25 20:26 Pain Level 0 01/29/25 20:26 Lab/Test Results Lab/Test Results: Laboratory Tests Range/Units 01/29/25 01/29/25 20:42 20:52 WBC (4.4-10.8) 10^3/uL 16.09 H RBC (3.93-5.22) 10^6/uL 4.56 Hgb (11.2-15.7) g/dL 13.7 Hct (36.0-46.0) % 40.6 MCV (80-95) fL 89 MCH (27.0-33.0) pg 30.0 MCHC (32.0-36.0) % 33.7 RDW (11.7-14.6) % 12.6 Plt Count (130-400) 10^3/uL 571 H MPV (8.0-11.0) fL 8.6 Immature Gran % % 0.6 Neutrophils % % 76.6 Lymphocytes % % 12.8 Monocytes % % 8.9 Eosinophils % % 0.7 Basophils % % 0.4 Nucleated RBC % (0.0-0.3) % 0.0 Absolute Neutrophils (1.2-6.7) 10^3/uL 12.32 H Absolute Lymphocytes (1.2-3.4) 10^3/uL 2.06 Absolute Monocytes (0.1-0.8) 10^3/uL 1.43 H Absolute Eosinophils (0.0-0.7) 10^3/uL 0.11 Absolute Basophils (0.0-0.2) 10^3/uL 0.06 Sodium (136-145) mmol/L 137 Potassium (3.5-5.1) mmol/L 2.8 L* Chloride (98-107) mmol/L 99 Carbon Dioxide (21.0-32.0) mmol/L 31.3 Anion Gap (3-11) mmol/L 6.7 BUN (7-18) mg/dL 7 Creatinine (0.55-1.02) mg/dL 0.7 Est GFR (CKD-EPI 2020) (mL/min/1.73m2) 120.74 Glucose (74-106) mg/dL 116 H Calcium (8.5-10.1) mg/dL 9.6 Magnesium (1.8-2.4) mg/dL 1.8 Total Bilirubin (0.2-1.0) mg/dL 0.6 AST (15-37) U/L 14 L ALT (14-59) U/L 22 Alkaline Phosphatase (46-116) U/L 71 Total Protein (6.4-8.2) g/dL 8.1 Albumin (3.4-5.0) g/dL 4.2 Urine Color (Yellow) Yellow Urine Clarity (Clear) Clear Urine pH (5-8) 6.0 Ur Specific [place] (1.005-1.025) >= 1.030 H Urine Protein (Neg-Trace) mg/dL 100 H Urine Ketones (Negative) mg/dL Trace H Urine Blood (Negative) Trace-lysed H Urine Nitrite (Negative) Negative Urine Bilirubin (Negative) Small H Urine Urobilinogen (Up to 0.2) mg/dL 2.0 H Ur Leukocyte Esterase (Negative) Negative Urine RBC (0-2) HPF 0-2 Urine WBC (0-5) HPF 0-2 Ur Epithelial Cells (Negative) HPF Rare Urine Crystals (Negative) HPF Negative Urine Bacteria (Negative) HPF Moderate Urine Casts (Negative) LPF Negative Urine Mucus (Negative) Heavy Ur Culture Indicated? No Urine Glucose (Negative) mg/dL Negative Medical Decision Making 29yo F currently 9 weeks gestation by LMP, no US yet his (scheduled 02/09), history of severe hyperemesis gravidurum, presenting for N/V. Nausea for several weeks, 2-3 days of nonbloody nonbilious emesis with inability to keep down fluids despite home zofran. No abdominal pain. Similar in character and timing to onset of hyperemesis in her prior pregnancies. Vital signs reassuring on arrival, no abdominal tenderness, does have dry MM. No abdominal tenderness, would not get CT imaging. Will give IVFB and try reglan; ideally would do B6 and doxylamine as well but unavailable here. Will sub multi B-vitamin. -Labs reviewed as below, CBC with leukocytosis to 16 (nonspecific) and no anem ia, CMP with marked hypokalemia at 2.8 (oral and IV replacement ordered) and no other actionable abnormalities, UA with trace ketones and not suggestive of infection, -EKG with mild bradycardia rate mid 40's, slightly prolonged ME, questionable T wave flattening suggestive of hypokalemic changes. Patient vomited immediately after trying to take vitamin with sips of water. Will continue to proceed with IV potassium. Discussed with OB Dr. Ordonez; advised trying 8mg IV zofran and rectal promethazine. Patient unable to go to mother-baby unit while IV potassium is running. Plan to continue potassium replacement in the ED, reassess for ability to tolerate PO. If after potassium repleted remains unable to take PO would come in to mother-baby unit for continued IVF and antiemetics. Patient will be signed out to oncoming physician, plan as above. Lab Data Lab results reviewed: Yes I reviewed the patient's lab results. Labs: Laboratory Tests Range/Units 01/29/25 01/29/25 20:42 20:52 WBC (4.4-10.8) 10^3/uL 16.09 H RBC (3.93-5.22) 10^6/uL 4.56 Hgb (11.2-15.7) g/dL 13.7 Hct (36.0-46.0) % 40.6 MCV (80-95) fL 89 MCH (27.0-33.0) pg 30.0 MCHC (32.0-36.0) % 33.7 RDW (11.7-14.6) % 12.6 Plt Count (130-400) 10^3/uL 571 H MPV (8.0-11.0) fL 8.6 Immature Gran % % 0.6 Neutrophils % % 76.6 Lymphocytes % % 12.8 Monocytes % % 8.9 Eosinophils % % 0.7 Basophils % % 0.4 Nucleated RBC % (0.0-0.3) % 0.0 Absolute Neutrophils (1.2-6.7) 10^3/uL 12.32 H Absolute Lymphocytes (1.2-3.4) 10^3/uL 2.06 Absolute Monocytes (0.1-0.8) 10^3/uL 1.43 H Absolute Eosinophils (0.0-0.7) 10^3/uL 0.11 Absolute Basophils (0.0-0.2) 10^3/uL 0.06 Sodium (136-145) mmol/L 137 Potassium (3.5-5.1) mmol/L 2.8 L* Chloride (98-107) mmol/L 99 Carbon Dioxide (21.0-32.0) mmol/L 31.3 Anion Gap (3-11) mmol/L 6.7 BUN (7-18) mg/dL 7 Creatinine (0.55-1.02) mg/dL 0.7 Est GFR (CKD-EPI 2020) (mL/min/1.73m2) 120.74 Glucose (74-106) mg/dL 116 H Calcium (8.5-10.1) mg/dL 9.6 Magnesium (1.8-2.4) mg/dL 1.8 Total Bilirubin (0.2-1.0) mg/dL 0.6 AST (15-37) U/L 14 L ALT (14-59) U/L 22 Alkaline Phosphatase (46-116) U/L 71 Total Protein (6.4-8.2) g/dL 8.1 Albumin (3.4-5.0) g/dL 4.2 Urine Color (Yellow) Yellow Urine Clarity (Clear) Clear Urine pH (5-8) 6.0 Ur Specific [place] (1.005-1.025) >= 1.030 H Urine Protein (Neg-Trace) mg/dL 100 H Urine Ketones (Negative) mg/dL Trace H Urine Blood (Negative) Trace-lysed H Urine Nitrite (Negative) Negative Urine Bilirubin (Negative) Small H Urine Urobilinogen (Up to 0.2) mg/dL 2.0 H Ur Leukocyte Esterase (Negative) Negative Urine RBC (0-2) HPF 0-2 Urine WBC (0-5) HPF 0-2 Ur Epithelial Cells (Negative) HPF Rare Urine Crystals (Negative) HPF Negative Urine Bacteria (Negative) HPF Moderate Urine Casts (Negative) LPF Negative Urine Mucus (Negative) Heavy Ur Culture Indicated? No Urine Glucose (Negative) mg/dL Negative Quality:SDOH Health Related Social Needs: No Data to Display [facility] Medical History (Updated 01/28/25 @ 07:25 by Britni Marcum CNM) Bradycardia Depression 2018 . 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 herniation of nucleus pulposis vs residual scaring from previous disk surgery. Eval at [facility] with MRI w/o contrast. Will need to f/u in pain clinic PP for eval of pain. delivery delivered 02/12/19. At term secondary to severe BP, H/A remote from delivery. Preeclampsia in period 11/05/2017. Treated with labetalol several weeks . 02/11/19. Presented in labor with elevated blood pressure. Rx MgSO4 and Labetalol PP. Bradycardia 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/2013) HR 40-60 BPM Surgical History (Updated 01/28/25 @ 07:25 by Britni Marcum CNM) Spinal L4and L5 repair S/P section Family History Mother Essential hypertension Hypothyroidism Mental disorder Anxiety and depression-Therapy and ? meds Father Substance abuse ?? 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 Date GA/Weeks # Preg Succ Route Wgt Sex Labor Lgth Anesth esia Location Prov Complic 11/05/17 38 No vaginal Female 02/12/19 38 No Female Delivery Date: 11/05/17 Last Updated by: Verena Armstrong M.D. Rapid delivery. [facility]. Treated with Labetalol for PP HTN. Delivery Date: 02/12/19 Last Updated by: Verena Armstrong M.D. Arrived in labor with preeclampsia severe by BP criteria. No response to IV meds. PC/Kaya Swann. D/C home with Labetalol for BP.
[2025-01-29] MEDS: POTASSIUM CHLORIDE 20 MEQ/100 ML BAG 50 MEQ IV_INF ×2 (21:50→23:58)
[2025-01-29] MEDS: Promethazine 25 MG SUPP PR (22:23)
[2025-01-29] MEDS: Ondansetron 4 MG/2 ML VIAL IVP (22:24)
[2025-01-30] VITALS (15 sets, daily range): BP systolic 139–167; BP diastolic 77–102; PULSE 39–65; RESP 9–20; O2SAT 97–99
--- NOTE | 2025-01-30 02:10 | ED.PROG_ITS ---
Date of service: 01/30/25 Time of Service: 02:12 Medical Decision Making Patient was signed out to me pending reevaluation after potassium and IV fluids. Patient is doing much better. She is feeling well and was requesting to go home. Patient has been given 40 mEq of potassium IV, she is tolerating p.o. well. She continues to demonstrate stable vital signs and no longer has any nausea. Patient will be discharged home. She has Zofran already at home. Recommend close follow-up with obstetrics gynecology. Discussed red flags for return. Patient shows no evidence of dysrhythmia. I have extensively reviewed the treatment plan and discharge instructions with the patient. I have addressed all patient concerns at this time. The patient was made aware of what symptoms to monitor for that would warrant a return to the emergency department. Discussed the plan with the patient, they demonstrate verbal understanding and agreement with our assessment and plan at this time. The documentation in this chart was dictated using [employer] dictation software. Please excuse any dictation errors. Quality:SDOH Health Related Social Needs: No Data to Display Discharge Plan Disposition Patient Disposition: Home Condition: Good Discharge Details Chief Complaint: Nausea/Vomit/Diar Clinical Impression: Acute hypokalemia, Nausea and vomiting, Acute dehydration Primary Care Provider: None,None ED Provider: Hitesh Owens Home Meds and New Rx's Prescriptions: No Action ondansetron 4 mg tablet,disintegrating 4 mg PO Q6H PRN (Reason: nausea and vomiting) Qty: 14 4RF bupropion HCl 300 mg tablet extended release 24 hr 1 tab PO 1XD Patient Comments: TAKE 1 TABLET BY MOUTH EVERY MORNING lisdexamfetamine [Vyvanse] 30 mg capsule 1 cap PO 1XD Patient Comments: TAKE 1 CAPSULE BY MOUTH EVERY DAY ondansetron 4 mg tablet,disintegrating 4 mg PO Q6H PRN (Reason: nausea and vomiting) Qty: 30 0RF Discharge Instructions Instructions: Hypokalemia, Nausea and Vomiting, Adult ED Additional Instructions: Today your potassium was noted to be quite low, and you are also quite dehydrated. Your potassium has been replaced and you have been given a significant amount of IV fluids for rehydration. Please continue to take your Zofran at home as needed for nausea. Please drink plenty of fluids and stay well-hydrated. Please follow-up closely with your OB [facility] specialist. Please stick with a diet high in potassium to help keep your potassium at an optimal level. If you notice any worsening of your symptoms, or any new symptoms such as vomiting, diarrhea, fever, chills, shortness of breath, chest pain, numbness, weakness, or fainting , please return immediately to the emergency department for reevaluation. Please follow up with your primary care provider as soon as possible for reassessment and reevaluation. As always, it was a pleasure participating in your medical care today. Referrals: Jacquie Ordonez DO [OSTEOPATHIC DOCTOR] -
== END 2025-01-30 02:20 | disposition home or self-care (01) ==
PROVIDERS: Student in an Organized Health Care Education/Training Program; Emergency Provider Student in an Organized Health Care Education/Training Program
DX: R11.2 Nausea with vomiting, unspecified (principal); Z3A.09 9 weeks gestation of pregnancy; E86.0 Dehydration
CPT/HCPCS: 00123; 80053; 81025; 93005; 96361; 96374; 96375; 99284; 81003; 81015; 83735; 85025; 93010; J2405; J2765; J3480

== ENCOUNTER 2025-02-23 11:29 | Emergency (ER) | payer MEDICAID, SELFPAY ==
[2025-02-23] VITALS (34 sets, daily range): BP systolic 132–191; BP diastolic 47–116; PULSE 39–116; RESP 8–25; TEMP 36.6; O2SAT 92–98
[2025-02-23 12:09] LABS: Lactate 0.8 mmol/L (<or=2.0)
[2025-02-23 12:10] LABS: Abs Immature Grans 0.17 10^3/uL (0.0-0.06); Absolute Eosinophil Count 0.09 10^3/uL (0.0-0.7); Absolute Lymphocyte Count 1.31 10^3/uL (1.2-3.4); Basophils % 0.4 %; Eosinophils % 0.4 %; HCT 37.1 % (36.0-46.0); HGB 12.9 g/dL (11.2-15.7); Immature Grans % 0.8 %; MCH 30.6 pg (27.0-33.0); MCHC 34.8 % (32.0-36.0); MCV 88 fL (80-95); MPV 8.8 fL (8.0-11.0); Monocytes % 5.4 %; Platelet Count 546 10^3/uL (130-400); RBC 4.21 10^6/uL (3.93-5.22); RDW 13.3 % (11.7-14.6); RDW-SD 43.4 fL; WBC 21.76 10^3/uL (4.4-10.8)
[2025-02-23 12:12] LABS: Absolute Basophil Count 0.09 10^3/uL (0.0-0.2); Absolute Monocyte Count 1.18 10^3/uL (0.1-0.8); Absolute Neutrophil Count 18.93 10^3/uL (1.2-6.7)
[2025-02-23] MEDS: Lactated Ringers 1,000 ML 1000 ML IV (12:15)
[2025-02-23] MEDS: Ondansetron 4 MG/2 ML VIAL IVP ×2 (12:15→15:59)
[2025-02-23 12:30] LABS: ALT 77 U/L (14-59); AST 36 U/L (15-37); Albumin 3.7 g/dL (3.4-5.0); Alkaline Phosphatase 79 U/L (46-116); Anion Gap 8.6 mmol/L (3-11); BUN 9 mg/dL (7-18); Bilirubin, Total 0.6 mg/dL (0.2-1.0); CO2 25.4 mmol/L (21.0-32.0); CREATININE 0.5 mg/dL (0.55-1.02); Calcium 9.6 mg/dL (8.5-10.1); Chloride 104 mmol/L (98-107); Estimated GFR 130.94 (mL/min/1.73m2); Glucose 127 mg/dL (74-106); Lipase 26 U/L (<78); Magnesium 1.6 mg/dL (1.8-2.4); Potassium 3.3 mmol/L (3.5-5.1); Sodium 138 mmol/L (136-145); Total Protein 7.5 g/dL (6.4-8.2)
--- NOTE | 2025-02-23 12:35 | ED.GENADUL_ITS ---
Discharge Plan Disposition Patient Disposition: Transfer-Acute Inpatient Care Specific Acute Inpt Facility: [facility] Condition: Stable Discharge Details Clinical Impression: Hypertension in , pre-eclampsia, Symptomatic bradycardia Primary Care Provider: Zain Ashton ED Provider: Hitesh Jean Home Meds and New Rx's Prescriptions: No Action promethazine 25 mg suppository 25 mg AK QHS PRN (Reason: sleep) Qty: 12 1RF ondansetron 4 mg tablet,disintegrating 4 mg PO Q6H PRN (Reason: nausea and vomiting) Qty: 14 4RF ondansetron 8 mg tablet,disintegrating 8 mg PO Q8H 30 Days Qty: 90 2RF metoclopramide HCl [Reglan] 10 mg tablet 10 mg PO Q6H PRN (Reason: nausea and vomiting) Qty: 60 1RF promethazine 25 mg suppository 25 mg AK Q6H PRN (Reason: nausea and vomiting) 30 Days Qty: 24 5RF ondansetron 4 mg tablet,disintegrating 4 mg PO Q6H PRN (Reason: nausea and vomiting) Qty: 30 0RF HPI General Date/Time Provider Initiated Documentation: 02/23/25 11:39 . HPI Narrative: 29 year-old female presents to ED today by POV/ambulating, G1PAL0, EDC: 09/23/25, with hyperemesis and known pre-eclampsia, with a chief complaint of acute intractable nausea/vomiting since 0000 last night. Quality described as no pain anywhere, just has been dealing with hyperemesis for a few weeks- has Rx ondansetron, Reglan and AK Phenergan at-home, states only the Phenergan is working, no radiation to chest pain, abdominal pain, dysuria, shortness of breath, diarrhea, vaginal bleeding, drug ingestion, endorses dizziness. Severity is described as moderate to severe for vomiting, mild for dizziness. Palliating factors include AK Phenergan. Provoking factors include nothing specific. Patient not anticoagulated. Related Data Home Medications ?Medication ?Instructions ?Recorded ?Confirmed ondansetron 4 mg disintegrating 4 mg PO Q6H PRN nausea and 10/20/24 02/23/25 tablet vomiting #30 tabs ondansetron 4 mg disintegrating 4 mg PO Q6H PRN nausea and 01/28/25 02/23/25 tablet vomiting #14 tabs promethazine 25 mg rectal 25 mg AK QHS PRN sleep #12 ea 02/08/25 02/23/25 suppository metoclopramide HCl 10 mg tablet 10 mg PO Q6H PRN nausea and 02/17/25 02/23/25 (Reglan) vomiting #60 tabs ondansetron 8 mg disintegrating 8 mg PO Q8H 30 days #90 tabs 02/17/25 02/23/25 tablet promethazine 25 mg rectal 25 mg AK Q6H PRN nausea and 02/17/25 02/23/25 suppository vomiting 30 days #24 supp Previous Rx's ?Medication ?Instructions ?Recorded ondansetron 4 mg disintegrating 4 mg PO Q6H PRN nausea and 10/20/24 tablet vomiting #30 tabs ondansetron 4 mg disintegrating 4 mg PO Q6H PRN nausea and 01/28/25 tablet vomiting #14 tabs promethazine 25 mg rectal 25 mg AK QHS PRN sleep #12 ea 02/08/25 suppository metoclopramide HCl 10 mg tablet 10 mg PO Q6H PRN nausea and 02/17/25 (Reglan) vomiting #60 tabs ondansetron 8 mg disintegrating 8 mg PO Q8H 30 days #90 tabs 02/17/25 tablet promethazine 25 mg rectal 25 mg AK Q6H PRN nausea and 02/17/25 suppository vomiting 30 days #24 supp Allergies Allergy/AdvReac Type Severity Reaction Status Date / Time meperidine HCl (From Demerol) Allergy Intermediate Swelling/Ed Unverified 02/23/25 11:36 chaim General Stated Complaint: Nausea/Vomit/Diar KATELYN: 3 Review of Systems All systems reviewed & are unremarkable except as noted in HPI and below Exam Narrative Exam Narrative: GENERAL APPEARANCE: Well-nourished, non-toxic, awake and alert, atraumatic, no acute distress. SKIN: Warm, pink, dry, intact, without rashes/lesions/ulcerations. HEAD: Normocephalic, atraumatic, normal hair distribution for gender/age. EYES: Normal conjunctiva, no exudates on lids/lashes. ENT: Nares patent, no circumoral cyanosis, no facial swelling NECK: Supple, trachea midline, painless cervical ROM. LUNGS/CHEST: Lungs CTA bilaterally-no rhonchi/rales/wheezes diffusely, non- labored respirations, normal A/P diameter, symmetrical expansion, no chest wall deformity HEART (CV/PV): Bradycardic irregular rate and rhythm without murmur, no peripheral edema, no JVD. ABDOMEN: Soft, non-distended, no guarding, no tenderness. PELVIC: deferred at this time, no symptoms. MSK: Normal ROM, no swelling/deformity to bilateral UEs or LEs, moving all extremities without weakness, no cyanosis, spine midline without tenderness, normal curvature. NEURO: Mental Status AAOx4 - alert to person, place, time, events No facial droop, no forehead involvement. Motor: No focal weakness - strength 5/5 in bilateral UEs and LEs, proximal and distal, symmetric. Sensory: sensation intact to light touch globally. Gait normal: patient ambulated without ataxia into ED room. PSYCH: euthymic, cooperative, pleasant, appropriate speech Course Vital Signs Vital signs: Vital Signs Temperature 36.6 C 02/23/25 11:31 Pulse 82 02/23/25 11:31 Respiratory Rate 20 02/23/25 11:31 Blood Pressure 156/87 H 02/23/25 11:31 Pulse Oximetry 96 02/23/25 11:31 Temperature 36.6 C 02/23/25 11:38 Temperature Source Oral 02/23/25 11:38 Pulse 82 02/23/25 11:38 Respiratory Rate 20 02/23/25 11:38 Blood Pressure 156/87 H 02/23/25 11:38 Blood Pressure Position Sitting 02/23/25 11:38 Pulse Oximetry 96 02/23/25 11:38 Oxygen Delivery Method Room Air 02/23/25 11:38 Oxygen Flow Rate 0 02/23/25 11:38 Pain Level 0 02/23/25 11:38 Lab/Test Results Lab/Test Results: Laboratory Tests Range/Units 02/23/25 11:57 WBC (4.4-10.8) 10^3/uL 21.76 H RBC (3.93-5.22) 10^6/uL 4.21 Hgb (11.2-15.7) g/dL 12.9 Hct (36.0-46.0) % 37.1 MCV (80-95) fL 88 MCH (27.0-33.0) pg 30.6 MCHC (32.0-36.0) % 34.8 RDW (11.7-14.6) % 13.3 Plt Count (130-400) 10^3/uL 546 H MPV (8.0-11.0) fL 8.8 Immature Gran % % 0.8 Neutrophils % % 87.0 Lymphocytes % % 6.0 Monocytes % % 5.4 Eosinophils % % 0.4 Basophils % % 0.4 Nucleated RBC % (0.0-0.3) % 0.0 Absolute Neutrophils (1.2-6.7) 10^3/uL 18.93 H Absolute Lymphocytes (1.2-3.4) 10^3/uL 1.31 Absolute Monocytes (0.1-0.8) 10^3/uL 1.18 H Absolute Eosinophils (0.0-0.7) 10^3/uL 0.09 Absolute Basophils (0.0-0.2) 10^3/uL 0.09 VBG Lactate (<or=2.0) mmol/L 0.8 Sodium (136-145) mmol/L 138 Potassium (3.5-5.1) mmol/L 3.3 L Chloride (98-107) mmol/L 104 Carbon Dioxide (21.0-32.0) mmol/L 25.4 Anion Gap (3-11) mmol/L 8.6 BUN (7-18) mg/dL 9 Creatinine (0.55-1.02) mg/dL 0.5 L Est GFR (CKD-EPI 2020) (mL/min/1.73m2) 130.94 Glucose (74-106) mg/dL 127 H Calcium (8.5-10.1) mg/dL 9.6 Magnesium (1.8-2.4) mg/dL 1.6 L Total Bilirubin (0.2-1.0) mg/dL 0.6 AST (15-37) U/L 36 ALT (14-59) U/L 77 H Alkaline Phosphatase (46-116) U/L 79 Total Protein (6.4-8.2) g/dL 7.5 Albumin (3.4-5.0) g/dL 3.7 Lipase (<78) U/L 26 Medical Decision Making This dictation utilizes [id number] dictation software and may contain unedited grammatical errors. 29 year-old female presents to ED today by POV/ambulating, G4PAL2, EDC: 09/23/25, with hyperemesis and known pre-eclampsia, with a chief complaint of acute intractable nausea/vomiting since 0000 last night. Quality described as no pain anywhere, just has been dealing with hyperemesis for a few weeks- has Rx ondansetron, Reglan and AK Phenergan at-home, states only the Phenergan is working, no radiation to chest pain, abdominal pain, dysuria, shortness of breath, diarrhea, vaginal bleeding, drug ingestion, endorses dizziness. Severity is described as moderate to severe for vomiting, mild for dizziness. Palliating factors include AK Phenergan. Provoking factors include nothing specific. Patients' medical history: Patient states she has always had a slow heart rate but perhaps not the slow, has never received a referral to cardiology, endorses history of preeclampsia. Family and social history: Lives at home with partner and 2 children, eats normal diet. Pertinent exam findings / vital signs include benign abdomen, bradycardic and irregular heart rate, lungs CTA, neuro intact. Differential / pathologies of concern include heart block, QT abnormality due to overuse of antiemetics, gastroenteritis, hyperemesis gravidarum, preeclampsia. Diagnostic studies of: - CBC, CMP, lactate, magnesium, troponin, lipase, TSH, EKG, rhythm strip, UA, Blood Cx's, Tick & Lyme Panel. - CBC shows leukocytosis of 21.76, likely from vomiting - Lactate WNL - Sodium within normal limits, potassium mildly low at 3.3, chloride within normal limits at 104, no elevation of BUN and creatinine is normal - Phosphorus within normal limits - Magnesium mildly low at 1.6 - Troponin negative - Lipase negative - TSH within normal limits - Blood cultures pending - one set drawn here, would recommend [facility] draw second set if they feel necessary - hCG quant. at time of acceptance for transfer - Tick & Lyme panel sent out - EKG shows an irregular bradycardic rhythm with AK interval abnormalities and junctional ectopic beats without ST changes- concern for Mobitz Type II, discussed with EM Attending Dr. Marcos EKG & Rhythm Strip show a bradycardic run with stable AK interval, followed by an ectopic possible junctional beat with no P-wave or a buried very shorted AK interval- consulting with cardiology at [facility]. Interventions of: - 10mEq potassium IV, 40mEq PO K+ liquid, 2gm IV magnesium, 1L IVF LR - 4mg IVP ondansetron q3hrs x 2 doses ED Course/Assessment/Plan: Paged [facility] Cardiology @ [phone] -I spoke with maternity attending Dr. Mcgee as well as v belt coverer and cardiology [employer] in consult, I am concerned for the irregular bradycardic rhythm I disagree that the rhythm is completely sinus bradycardia, there are ectopic junctional beats and AK interval inconsistencies with possible varied retrograde PVCs seen on ECG in lead II during the QRS complex, the rhythm strip I sent did have significant irregularity. Cardiology recommended observation, patient's blood pressure at some points was 190 systolic with history of severe preeclampsia and I do not feel that her mild dehydration due to vomiting is driving these labile vital signs, I observed her on telemetry drop into the 30s for heart rate multiple times, she has been dizzy possibly due to vomiting but also possibly due to symptomatic bradycardia-I feel it is far safer for the patient to be admitted at a facility with cardiology and Dr. Aguilera agreed to accept the patient to [facility] BP for on telemetry with cardiology consult at [facility] later tonight.. Findings not consistent with complete heart block, severe dehydration, intract able nausea/vomiting, threatened . Disposition of Symptomatic Bradycardia, Hypertension in , pre-eclampsia Patient verbalized understanding of the plan and return to ED criteria and engaged in shared decision making. Medical Records Medical records reviewed: Yes I reviewed the patient's medical records. Lab Data Lab results reviewed: Yes I reviewed the patient's lab results. Labs: Laboratory Tests Range/Units 02/23/25 11:57 WBC (4.4-10.8) 10^3/uL 21.76 H RBC (3.93-5.22) 10^6/uL 4.21 Hgb (11.2-15.7) g/dL 12.9 Hct (36.0-46.0) % 37.1 MCV (80-95) fL 88 MCH (27.0-33.0) pg 30.6 MCHC (32.0-36.0) % 34.8 RDW (11.7-14.6) % 13.3 Plt Count (130-400) 10^3/uL 546 H MPV (8.0-11.0) fL 8.8 Immature Gran % % 0.8 Neutrophils % % 87.0 Lymphocytes % % 6.0 Monocytes % % 5.4 Eosinophils % % 0.4 Basophils % % 0.4 Nucleated RBC % (0.0-0.3) % 0.0 Absolute Neutrophils (1.2-6.7) 10^3/uL 18.93 H Absolute Lymphocytes (1.2-3.4) 10^3/uL 1.31 Absolute Monocytes (0.1-0.8) 10^3/uL 1.18 H Absolute Eosinophils (0.0-0.7) 10^3/uL 0.09 Absolute Basophils (0.0-0.2) 10^3/uL 0.09 VBG Lactate (<or=2.0) mmol/L 0.8 Sodium (136-145) mmol/L 138 Potassium (3.5-5.1) mmol/L 3.3 L Chloride (98-107) mmol/L 104 Carbon Dioxide (21.0-32.0) mmol/L 25.4 Anion Gap (3-11) mmol/L 8.6 BUN (7-18) mg/dL 9 Creatinine (0.55-1.02) mg/dL 0.5 L Est GFR (CKD-EPI 2020) (mL/min/1.73m2) 130.94 Glucose (74-106) mg/dL 127 H Calcium (8.5-10.1) mg/dL 9.6 Phosphorus (2.6-4.7) mg/dL 3.2 Magnesium (1.8-2.4) mg/dL 1.6 L Total Bilirubin (0.2-1.0) mg/dL 0.6 AST (15-37) U/L 36 ALT (14-59) U/L 77 H Alkaline Phosphatase (46-116) U/L 79 Troponin I (<or=51) ng/L < 4 Total Protein (6.4-8.2) g/dL 7.5 Albumin (3.4-5.0) g/dL 3.7 Lipase (<78) U/L 26 TSH (0.36-3.74) uIU/mL 0.93 Quality:SDOH Health Related Social Needs: No Data to Display PFSH All Active Problems (Updated 02/23/25 @ 15:52 by ORLANDO Vazquez) Symptomatic bradycardia (Acute) Hypertension in , pre-eclampsia (Acute) (Acute) Early stage of (Acute) Acute dehydration (Acute) Nausea and vomiting (Acute) Acute hypokalemia (Acute) Medical History (Updated 02/23/25 @ 15:52 by ORLANDO Vazquez) Bradycardia Depression 2018 . 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 herniation of nucleus pulposis vs residual scaring from previous disk surgery. Eval at [facility] with MRI w/o contrast. Will need to f/u in pain clinic PP for eval of pain. delivery delivered 02/12/19. At term secondary to severe BP, H/A remote from delivery. Preeclampsia in period 11/05/2017. Treated with labetalol several weeks . 02/11/19. Presented in labor with elevated blood pressure. Rx MgSO4 and Labetalol PP. Bradycardia 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/2013) HR 40-60 BPM Surgical History (Updated 01/28/25 @ 07:25 by Britni Marcum CNM) Spinal L4and L5 repair S/P section Family History Mother Essential hypertension Hypothyroidism Mental disorder Anxiety and depression-Therapy and ? meds Father Substance abuse ?? 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 Date GA/Weeks # Preg Succ Route Wgt Sex Labor Lgth Anesth esia Location Prov Complic 11/05/17 38 No vaginal Female 02/12/19 38 No Female Delivery Date: 11/05/17 Last Updated by: Verena Armstrong M.D. Rapid delivery. [place]. Treated with Labetalol for PP HTN. Delivery Date: 02/12/19 Last Updated by: Verena Armstrong M.D. Arrived in labor with preeclampsia severe by BP criteria. No response to IV meds. PC/Kaya Swann. D/C home with Labetalol for BP.
--- NOTE | 2025-02-23 13:00 | RT.EKG_ITS ---
APPROVED REPORT Exam: Resting ECG Reason for Exam: bradycardic arrhythmia Patient Location: E HR:46 bpm ECG Measurements Heart Rate 46 AXIS IA 177 P 0 QRSd 96 QRS 81 QT 485 T 1 QTc 424 Conclusion Sinus bradycardia with 2nd degree HB, PAC/PJCs. No interval abnormalities No STEMI
[2025-02-23] MEDS: POTASSIUM CHLORIDE 10 MEQ/100 ML BAG 100 MEQ IV_INF ×2 (13:09→14:39)
[2025-02-23] MEDS: MAGNESIUM SULFATE 2 GM/50 ML BAG IV_INF (13:10)
[2025-02-23 13:50] LABS: PHOSPHORUS 3.2 mg/dL (2.6-4.7); Troponin I < 4 ng/L (<or=51)
[2025-02-23 14:00] LABS: TSH (W/Ref FT4) 0.93 uIU/mL (0.36-3.74)
[2025-02-23 14:24] LABS: Bilirubin Negative (Negative); Blood Negative (Negative); Glucose Negative (Negative); Ketones >=160 mg/dL (Negative); Leukocyte Esterase Negative (Negative); Nitrite Negative (Negative); Urobilinogen 0.2 mg/dL (Up to 0.2)
[2025-02-23 14:41] LABS: Clarity Cloudy (Clear)
[2025-02-23 14:42] LABS: Bacteria Few HPF (Negative); C & S Indicated? No; Casts Negative LPF (Negative); Crystals Many Amorphous HPF (Negative); Epithelial Cells Few HPF (Negative); Mucus Negative (Negative); RBC 0-2 HPF (0-2); WBC 0-2 HPF (0-5)
[2025-02-24 11:15] LABS: Lyme Ab w Rflx to Lyme Confirm Negative (Negative)
[2025-02-26 15:45] LABS: Anaplasma phagocytophilum Negative (Negative); B. miyamotoi PCR Negative (Negative); Babesia divergens/MO-1 Negative (Negative); Babesia duncani Negative (Negative); Babesia microti Negative (Negative); Ehrlichia chaffeensis Negative (Negative); Ehrlichia ewingii/canis Negative (Negative); Ehrlichia muris eauclairensis Negative (Negative)
== END 2025-02-23 16:50 | disposition short-term general hospital (02) ==
PROVIDERS: Emergency Provider Physician Assistant; PCP Student in an Organized Health Care Education/Training Program
DX: O14.00 Mild to moderate pre-eclampsia, unspecified trimester (principal); O21.0 Mild hyperemesis gravidarum; O99.891 Other specified diseases and conditions complicating pregnancy; R00.1 Bradycardia, unspecified; Z3A.10 10 weeks gestation of pregnancy
CPT/HCPCS: 36415; 80053; 83690; 87040; 87798; 93005; 96361; 96365; 96366; 96367; 96368; 96375; 96376; 99285; 81003; 81015; 83605; 83735; 84100; 84443; 84484; 84702; 85025; 86618; 93010; 99283; J2405; J3475; J3480

== ENCOUNTER 2025-03-02 03:25 | Outpatient (CLI) | payer MEDICAID, SELFPAY ==
[2025-03-02 14:41] LABS: Panorama Kit Sent via Fed Ex
[2025-03-02 14:45] LABS: Abs Immature Grans 0.24 10^3/uL (0.0-0.06); Absolute Basophil Count 0.07 10^3/uL (0.0-0.2); Absolute Eosinophil Count 0.45 10^3/uL (0.0-0.7); Basophils % 0.4 %; Eosinophils % 2.4 %; HCT 35.7 % (36.0-46.0); HGB 12.3 g/dL (11.2-15.7); Immature Grans % 1.3 %; Lymphocytes % 15.2 %; MCH 30.9 pg (27.0-33.0); MCHC 34.5 % (32.0-36.0); MCV 90 fL (80-95); MPV 8.8 fL (8.0-11.0); Monocytes % 8.2 %; Neutrophils % 72.5 %; Platelet Count 501 10^3/uL (130-400); RBC 3.98 10^6/uL (3.93-5.22); RDW 13.5 % (11.7-14.6); RDW-SD 44.6 fL; WBC 18.58 10^3/uL (4.4-10.8)
[2025-03-02 14:52] LABS: Absolute Lymphocyte Count 2.82 10^3/uL (1.2-3.4); Absolute Monocyte Count 1.52 10^3/uL (0.1-0.8); Absolute Neutrophil Count 13.47 10^3/uL (1.2-6.7)
[2025-03-02 14:58] LABS: Diff Comment Diff Reviewed; RBC Morphology Normal
[2025-03-02 15:27] LABS: ALT 70 U/L (14-59); AST 42 U/L (15-37); Albumin 3.4 g/dL (3.4-5.0); Alkaline Phosphatase 75 U/L (46-116); Anion Gap 4.3 mmol/L (3-11); BUN 8 mg/dL (7-18); Bilirubin, Total 0.3 mg/dL (0.2-1.0); CO2 28.7 mmol/L (21.0-32.0); CREATININE 0.6 mg/dL (0.55-1.02); Calcium 9.2 mg/dL (8.5-10.1); Chloride 99 mmol/L (98-107); Estimated GFR 125.31 (mL/min/1.73m2); Glucose 92 mg/dL (74-106); Potassium 3.7 mmol/L (3.5-5.1); Sodium 132 mmol/L (136-145); Total Protein 6.9 g/dL (6.4-8.2)
[2025-03-03 10:24] LABS: HIV-1/2 Ag & Ab Screen Negative (Negative)
[2025-03-03 10:38] LABS: Hepatitis B Surface Ag Negative (Negative)
[2025-03-03 11:27] LABS: Hepatitis C Ab w Rflx HCV PCR Negative (Negative)
[2025-03-03 14:43] LABS: Varicella IgG Antibody Positive (See Note)
[2025-03-03 14:49] LABS: Rubella IgG Ab (UVM) Positive (See Note)
[2025-03-06 15:25] LABS: Syphilis IgG w/Reflex Nonreactive (Nonreactive)
== END 2025-03-02 03:26 | disposition home or self-care (01) ==
LOC: LBO 03:25
PROVIDERS: PCP Student in an Organized Health Care Education/Training Program; Visit Provider Advanced Practice Midwife
DX: Z34.91 Encounter for supervision of normal pregnancy, unspecified, first trimester (principal)
CPT/HCPCS: 36415; 80053; 86787; 86803; 86850; 86900; 86901; 87340; 87389; 85025; 86762; 86780

== ENCOUNTER 2025-03-02 14:28 | Outpatient (REF) | payer MEDICAID, SELFPAY ==
--- NOTE | 2025-03-02 14:00 | PAPFT_PTH ---
PATIENT: Alexandrea Bobo LOC: [facility] U#:[id number] AGE/SX: 29/F ROOM: RE03/02/[address]: Izabella Smith CNM : 1995 BED: DIS: 03/02/2025 SPEC #: [id number] RECD: 03/02/25 18:15 STATUS: BRITT REQ #: [id number] NANY: 03/02/25 14:[address]: Izabella Smith DEPT: [facility] Cytology RECD BY: Shayy Roper ENTERED: 03/02/25 18:15 SP TYPE: PAPFT OTHR DR: Zain Ashton Tissues: 1 - CX/ENDOCX FOR PAP SMEARS Procedures: PAP THIN PREP/UVM Screening HPV DNA PROBE Comments: [id number] (HPV 16 & 18/45) (CHLAMYDIA/GC)
[2025-03-02 17:23] LABS: COMMENT (LAB VIEW ONLY) 21.43 mg/dL; PROTEIN 7.6 mg/dL; Prot/Crea Ur Ratio 0.35
[2025-03-02 17:27] LABS: *AMPHETAMINES SCREEN URINE Negative (Negative); *BARBITURATES SCREEN URINE Negative (Negative); *BENZODIAZEPINES SCREEN URINE Negative (Negative); Cannabinoids THC Positive (Negative); Cocaine Screen,Urine Negative (Negative); METHADONE URINE SCREEN Negative (Negative); OPIATES URINE SCREEN Negative (Negative)
[2025-03-02 17:32] LABS: Tricyclic Antidepressants Negative (Negative)
[2025-03-03 11:53] LABS: Fentanyl Scr w/Rfx Confirm Negative ng/mL (<1)
[2025-03-03 12:24] LABS: Chlamydia Result Negative (Negative); GC Result Negative (Negative)
[2025-03-09 08:29] LABS: Buprenorphine Negative ng/mL (Cutoff: 5.0); Norbuprenorphine Negative ng/mL (Cutoff: 2.5)
== END 2025-03-02 14:29 | disposition home or self-care (01) ==
LOC: LBN 14:28
PROVIDERS: PCP Student in an Organized Health Care Education/Training Program; Visit Provider Advanced Practice Midwife
DX: Z34.91 Encounter for supervision of normal pregnancy, unspecified, first trimester (principal); Z3A.10 10 weeks gestation of pregnancy
CPT/HCPCS: 80307; 80348; 87491; 87591; 88142; 82565; 84156; 87086; 87624

== ENCOUNTER 2025-03-10 17:04 | Outpatient (REF) | payer MEDICAID, SELFPAY ==
[2025-03-10 20:21] LABS: Creatinine,Urine 42.56 mg/dL
[2025-03-10 20:26] LABS: Creatinine,24hr Ur 1.23 g/24hr (0.60-1.80); PROTEIN < 6.0 mg/dL (0.0-11.9); Total Volume 2900 ml
== END 2025-03-10 17:05 | disposition home or self-care (01) ==
LOC: LBN 17:04
PROVIDERS: PCP Student in an Organized Health Care Education/Training Program; Visit Provider Advanced Practice Midwife
DX: O09.291 Supervision of pregnancy with other poor reproductive or obstetric history, first trimester (principal); R74.8 Abnormal levels of other serum enzymes
CPT/HCPCS: 81050; 82570; 84155

== ENCOUNTER 2025-03-28 11:49 | Outpatient (CLI) | payer MEDICAID, SELFPAY ==
[2025-03-28 12:46] LABS: ALT 31 U/L (14-59); AST 14 U/L (15-37); Albumin 3.4 g/dL (3.4-5.0); Alkaline Phosphatase 87 U/L (46-116); Anion Gap 11.8 mmol/L (3-11); BUN 6 mg/dL (7-18); Bilirubin, Total 0.4 mg/dL (0.2-1.0); CO2 25.2 mmol/L (21.0-32.0); CREATININE 0.4 mg/dL (0.55-1.02); Calcium 9.1 mg/dL (8.5-10.1); Chloride 101 mmol/L (98-107); Estimated GFR 138.17 (mL/min/1.73m2); Glucose 98 mg/dL (74-106); Potassium 3.6 mmol/L (3.5-5.1); Sodium 138 mmol/L (136-145); Total Protein 7.3 g/dL (6.4-8.2)
[2025-04-03 11:53] LABS: Specimen WB Whole Blood
== END 2025-03-28 11:50 | disposition home or self-care (01) ==
LOC: LBO 11:51
PROVIDERS: PCP Student in an Organized Health Care Education/Training Program; Visit Provider Obstetrics & Gynecology
DX: R74.01 Elevation of levels of liver transaminase levels (principal); Z34.91 Encounter for supervision of normal pregnancy, unspecified, first trimester
CPT/HCPCS: 36415; 80053; 81220; 81222; 81329

== ENCOUNTER 2025-04-09 14:18 | Emergency (ER) | payer MEDICAID, SELFPAY ==
--- NOTE | 2025-04-09 14:15 | RT.EKG_ITS ---
APPROVED REPORT Exam: Resting ECG Reason for Exam: Chest Pain Patient Location: E HR:48 bpm ECG Measurements Heart Rate 48 AXIS DC 192 P 42 QRSd 97 QRS 88 QT 470 T 62 QTc 422 Conclusion Sinus bradycardia with supraventricular bigeminy, similar to priors No interval abnormalities No STEMI
[2025-04-09 14:20] VITALS: BP 146/77; PULSE 74; RESP 18; TEMP 36.5; O2SAT 98
--- NOTE | 2025-04-09 14:41 | ED.GENADUL_ITS ---
Discharge Plan Disposition Patient Disposition: Home Condition: Stable Discharge Details Clinical Impression: Hyperemesis gravidarum, Elevated platelet count, History of pre-eclampsia in prior , currently Primary Care Provider: Zain Ashton ED Provider: Rachel Marcos Home Meds and New Rx's Prescriptions: No Action Vitamin Plus Low Iron 27 mg iron- 1 mg tablet 1 tab PO DAILY Qty: 90 5RF famotidine 20 mg tablet 20 mg PO DAILY Qty: 60 5RF aspirin 81 mg tablet,delayed release (DR/EC) 162 mg PO DAILY Qty: 60 5RF ondansetron 8 mg tablet,disintegrating 8 mg PO Q8H 30 Days Qty: 90 2RF metoclopramide HCl [Reglan] 10 mg tablet 10 mg PO Q6H PRN (Reason: nausea and vomiting) Qty: 60 1RF promethazine 25 mg suppository 25 mg NM Q6H PRN (Reason: nausea and vomiting) 30 Days Qty: 24 5RF Discharge Instructions Instructions: Hyperemesis Gravidarum (DC) Additional Instructions: You were seen in the emergency department today for evaluation of abdominal pain, nausea and vomiting during . In our department you do full physical examination performed, had laboratory studies that were reassuring, though we did note that your potassium was slightly low, and provided you with an oral dose of that medication today. Your white blood cell count has been quite elevated but is downtrending, and can continue to be followed by your outpatient providers. You had no evidence of urinary tract infection, severe dehydration, and at this time do not meet criteria for preeclampsia. Your outpatient providers will want to continue to monitor your blood pressures, laboratory studies, and you should go to all of your appointments. You had an ultrasound that showed a normal gallbladder as well as a very healthy looking fetus, with a normal heart rate and movement. You should continue to take all of your medications as prescribed, and as we discussed you can trial a dose of Benadryl, 25 mg, with your Reglan to prevent restless limbs. Reasons to return to the emergency department include fever or chills, nausea or vomiting that prevents eating or drinking, loss of movement, vaginal bleeding or contractions, or any other symptoms that cause you concern. Please follow-up with your primary care provider in the next few days to discuss this visit and any symptoms that change, worsen, or persist. Thank you for allowing us to be part of your care. HPI General Mode of arrival: ambulatory . Date/Time Provider Initiated Documentation: 04/09/25 14:20 . Limitations to Documentation: no limitations . Information obtained by: patient and old records reviewed . HPI Narrative: This is a 29-year-old female patient, G3, P2 and an estimated 18 weeks gestation, with a history of section and preeclampsia, who is presenting for evaluation of abdominal pain, nausea and vomiting. She reports that the symptoms started suddenly about half an hour ago, states that she has struggled with hyperemesis throughout her . She takes Zofran, Reglan, and Phenergan as needed, states that she had been feeling well prior to this episode and had been able to maintain her hydration. She has noted some slight swelling of her toes over the last few days, states that she is experiencing abdominal pain primarily located in the right upper quadrant. She reports that her pain also goes into the lower center aspect of her chest. She denies fever, chills, dysuria, contractions, vaginal bleeding or discharge. She is known Rh+. Related Data Home Medications ?Medication ?Instructions ?Recorded ?Confirmed metoclopramide HCl 10 mg tablet 10 mg PO Q6H PRN nause a and 02/17/25 03/28/25 (Reglan) vomiting #60 tabs ondansetron 8 mg disintegrating 8 mg PO Q8H 30 days #9 0 tabs 02/17/25 03/28/25 tablet promethazine 25 mg rectal 25 mg NM Q6H PRN nausea and 02/17/25 03/28/25 suppository vomiting 30 days #24 supp aspirin 81 mg tablet,delayed 162 mg (2 x 81 mg) PO ESTELLE LY #60 03/02/25 03/28/25 release tabs famotidine 20 mg tablet 20 mg PO DAILY #60 tabs 02/1003/28/25 vitamin with calcium 1 tab PO DAILY #90 tabs 03/02/25 03/28/25 no.72-iron 27 mg-folic acid 1 mg tablet ( Vitamins Plus Low Iron) Previous Rx's ?Medication ?Instructions ?Recorded metoclopramide HCl 10 mg tablet 10 mg PO Q6H PRN nause a and 02/17/25 (Reglan) vomiting #60 tabs ondansetron 8 mg disintegrating 8 mg PO Q8H 30 days #9 0 tabs 02/17/25 tablet promethazine 25 mg rectal 25 mg NM Q6H PRN nausea and 02/17/25 suppository vomiting 30 days #24 supp aspirin 81 mg tablet,delayed 162 mg (2 x 81 mg) PO ESTELLE LY #60 03/02/25 release tabs famotidine 20 mg tablet 20 mg PO DAILY #60 tabs 02/10 12/06 vitamin with calcium 1 tab PO DAILY #90 tabs 03/02/25 no.72-iron 27 mg-folic acid 1 mg tablet ( Vitamins Plus Low Iron) Allergies Allergy/AdvReac Type Severity Reaction Status Date / Time meperidine HCl (From Demerol) Allergy Intermediate Swelling/Ed Unverified 03/28/25 10:55 chaim General Stated Complaint: Abd Prob KATELYN: 3 Exam Narrative Exam Narrative: Gen: Awake and alert, appears uncomfortable HEENT: Non-icteric sclera Neck: Supple Lungs: No apparent respiratory distress, normal respiratory effort. Lung sounds clear and equal bilaterally without wheezes, rhonchi, rales CV: Appears well perfused, heart with regular rate and rhythm, strong distal pulses Abdomen: The patient has a gravid uterus, palpable just below the level of the umbilicus. She has tenderness to palpation in the right upper quadrant, and lesser tenderness throughout her abdominal region and a generalized distribution. No rigidity, rebound, or guarding. MSK: Moves 4 extremities without apparent limitation in ROM Skin: Visualized skin without rashes, cyanosis. Neuro: Normal Gait, no obvious focal deficits or facial asymmetry. Speaks in full, clear sentences. Psych: Appropriate for situation. Course Vital Signs Vital signs: Vital Signs Temperature 36.5 C 04/09/25 14:20 Pulse 74 04/09/25 14:20 Respiratory Rate 18 04/09/25 14:20 Blood Pressure 146/77 H 04/09/25 14:20 Pulse Oximetry 98 04/09/25 14:20 Temperature 36.5 C 04/09/25 14:20 Pulse 74 04/09/25 14:20 Respiratory Rate 18 04/09/25 14:20 Blood Pressure 146/77 H 04/09/25 14:20 Pulse Oximetry 98 04/09/25 14:20 Oxygen Delivery Method Room Air 04/09/25 14:20 Oxygen Flow Rate 0 06/29/25 14:20 Pain Level 8 04/09/25 14:20 Medical Decision Making This is a 29-year-old female patient presenting for evaluation of nausea with vomiting, abdominal and chest pain in the setting of . My differential includes but is not limited to preeclampsia given her history of same, the patient has a mild range blood pressure of 146/77, will recheck and trend. Certainly considered hellp syndrome, hyperemesis gravidarum, intra-abdominal pathology including cholecystitis, pancreatitis, appendicitis. The patient has been passing stool normally and have a low concern for bowel obstruction. No vaginal bleeding or discharge to suggest placenta previa, abruption, loss or miscarriage, nor PID/TOA. No urinary symptoms to significantly increase my concern for urinary tract infection. Considered metabolic electrolyte derangement, dehydration, kidney injury, though the patient has had a brief duration of severe symptoms. The patient's chest pain seems to be in the context of her vomiting, she is young and without cardiac risk factors and I have a lower concern for ACS. We will obtain an EKG, as well as laboratory studies to include CBC, CMP, magnesium, lipase, urinalysis. I will provide perform a bedside POCUS to evaluate the fetus as well as her right upper quadrant/gallbladder. I will provide the patient with a dose of Reglan and Benadryl as well as IV fluids. - I reviewed the patient's EKG, which shows a sinus bradycardia with occasional supraventricular bigeminy/PACs, which is unchanged when compared to priors. I reviewed the patient's laboratory studies, she has a recent leukocytosis that is now downtrending, white blood cell count today is 16. No anemia, thrombocytosis persists compared to priors, slightly hypokalemic at 3.3 which will be repleted orally. No evidence for kidney dysfunction, no liver enzyme elevation which is quite reassuring against HELLP syndrome. Lipase is low. Urinalysis is noninfectious, and she has no ketonuria or proteinuria. I have a very low concern for preeclampsia in this patient who has not had repeat elevation in her blood pressures, blood pressures have returned to normal/low normal. On reassessment after her medications, she reports that she has had complete resolution of her symptoms, and has a benign abdominal examination at this time. I have a low concern for etiologies such as appendicitis, and counseled the patient extensively on return precautions. I did reach out to [facility] who will follow-up with her in their clinic. At this time, the patient has had a full medical evaluation and is safe for discharge to home. They are hemodynamically stable, ambulatory, and tolerating PO. They are understanding of the follow-up plan and return precautions. They left our facility without incident. Rachel Marcos MD [facility] All Active Problems (Updated 04/09/25 @ 15:53 by Rachel Marcos MD) Hyperemesis gravidarum (Acute) Elevated platelet count (Acute) Elevated liver enzymes (Acute) History of pre-eclampsia in prior , currently (Acute) Marijuana use during (Acute) History of delivery, currently (Acute) (Acute) Medical History (Updated 04/09/25 @ 15:53 by Rachel Marcos MD) Early stage of Bradycardia Depression 2018 . 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 herniation of nucleus pulposis vs residual scaring from previous disk surgery. [place] [facility] [place] w/o contrast. Will need to f/u in pain clinic PP for eval of pain. delivery delivered 02/12/19. At term secondary to severe BP, H/A remote from delivery. Preeclampsia in period 11/05/2017. Treated with labetalol several weeks . 02/11/19. Presented in labor with elevated blood pressure. Rx MgSO4 and Labetalol PP. Bradycardia 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/2013) HR 40-60 BPM Surgical History (Updated 03/02/25 @ 13:52 by Izabella Smith) Spinal L4and L5 repair S/P section Family History Mother Essential hypertension Hypothyroidism Mental disorder Anxiety and depression-Therapy and ? meds Father Substance abuse ?? 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 Date GA/Weeks # Preg Succ Route Wgt Sex Labor Lgth Anesth esia Location Prov Complic 11/05/17 37 No Yes vaginal 2863.302 g Male 2 hrs [facility] , [place] 02/12/19 36 No Yes 2324.661 g Female N [facility], Dr. Cintron Delivery Date: 11/05/17 Last Updated by: Izabella Smith Precip'ed, RN delivered, [place], labetalol for a couple of months Delivery Date: 02/12/19 Last Updated by: Izabella Smith Severe range BP, no response to IV meds, no labor, went to [facility]. Labetalol for 6 months. POCUS Exam (ED) Limited Gallbladder Exam DATE OF EXAM: 04/09/25 TIME OF EXAM: 15:05 PROVIDER THAT PERFORMED THE STUDY: Rachel Marcos REASON FOR VISIT: RUQ pain VISUALIZED STRUCTURES: Gallbladder, Gallbladder wall and Liver PERTINENT FINDINGS/IMPRESSION: No apparent abnormalities Exam complete Limited OB Exam DATE OF EXAM:: 04/09/25 TIME OF EXAM:: 15:05 PROVIDER THAT PERFORMED THE STUDY: Rachel Marcos Type of Exam: Pelvic OB Trans Abdominal REASON FOR EXAM: Abdominal Pain VISUA LIZED STRUCTURES: Uterus PERTINENT FINDINGS/IMPRESSION: cardiac activity and No apparent abnormalities Exam Complete.
[2025-04-09 14:59] LABS: Abs Immature Grans 0.15 10^3/uL (0.0-0.06); Absolute Basophil Count 0.05 10^3/uL (0.0-0.2); Absolute Monocyte Count 1.06 10^3/uL (0.1-0.8); Basophils % 0.3 %; Eosinophils % 1.6 %; HCT 34.1 % (36.0-46.0); HGB 11.5 g/dL (11.2-15.7); Immature Grans % 0.9 %; Lymphocytes % 12.7 %; MCHC 33.7 % (32.0-36.0); MCV 92 fL (80-95); MPV 8.8 fL (8.0-11.0); Monocytes % 6.6 %; Neutrophils % 77.9 %; Platelet Count 467 10^3/uL (130-400); RBC 3.71 10^6/uL (3.93-5.22); RDW-SD 43.8 fL; WBC 16.02 10^3/uL (4.4-10.8)
[2025-04-09] MEDS: Lactated Ringers 1,000 ML 1000 ML IV (14:59)
[2025-04-09] MEDS: Metoclopramide 10 MG/2 ML VIAL IVP (15:00)
[2025-04-09] MEDS: diphenhydrAMINE 50 MG/ML VIAL 25 MG IVP (15:00)
[2025-04-09 15:02] LABS: Absolute Eosinophil Count 0.26 10^3/uL (0.0-0.7); Absolute Lymphocyte Count 2.03 10^3/uL (1.2-3.4); Absolute Neutrophil Count 12.48 10^3/uL (1.2-6.7)
[2025-04-09 15:11] LABS: Lipase 54 U/L (<78)
[2025-04-09 15:19] LABS: ALT 28 U/L (14-59); AST 16 U/L (15-37); Albumin 3.4 g/dL (3.4-5.0); Alkaline Phosphatase 86 U/L (46-116); Anion Gap 10.7 mmol/L (3-11); BUN 6 mg/dL (7-18); Bilirubin, Total 0.3 mg/dL (0.2-1.0); CO2 26.3 mmol/L (21.0-32.0); CREATININE 0.4 mg/dL (0.55-1.02); Calcium 8.7 mg/dL (8.5-10.1); Chloride 101 mmol/L (98-107); Estimated GFR 138.17 (mL/min/1.73m2); Glucose 93 mg/dL (74-106); Magnesium 1.9 mg/dL (1.8-2.4); Potassium 3.3 mmol/L (3.5-5.1); Sodium 138 mmol/L (136-145); Total Protein 7.2 g/dL (6.4-8.2)
[2025-04-09 15:25] VITALS: PULSE 50; PULSE 53; RESP 29; O2SAT 98
[2025-04-09 15:27] VITALS: BP 103/35; PULSE 49; PULSE 50; RESP 22; O2SAT 97
[2025-04-09 15:30] VITALS: PULSE 48; RESP 23; O2SAT 98
[2025-04-09 15:31] VITALS: BP 99/33; PULSE 49; PULSE 50; RESP 22; O2SAT 97
[2025-04-09 15:33] LABS: Bilirubin Negative (Negative); Blood Negative (Negative); Clarity Clear (Clear); Glucose Negative (Negative); Ketones Negative (Negative); Leukocyte Esterase Negative (Negative); Nitrite Negative (Negative); Specific Gravity 1.015 (1.005-1.025); Urobilinogen 0.2 mg/dL (Up to 0.2)
[2025-04-09] MEDS: Potassium Bicarbonate/Cit AC 25 MEQ TABLET.EFF PO (16:13)
== END 2025-04-09 16:40 | disposition home or self-care (01) ==
PROVIDERS: Emergency Provider Emergency Medicine; PCP Student in an Organized Health Care Education/Training Program
DX: O21.0 Mild hyperemesis gravidarum (principal); O99.112 Other diseases of the blood and blood-forming organs and certain disorders involving the immune mechanism complicating pregnancy, second trimester; D47.3 Essential (hemorrhagic) thrombocythemia; Z87.59 Personal history of other complications of pregnancy, childbirth and the puerperium; Z79.82 Long term (current) use of aspirin; Z3A.18 18 weeks gestation of pregnancy
CPT/HCPCS: 36415; 76705; 76815; 80053; 83690; 93005; 96361; 96374; 96375; 99284; 81003; 83735; 85025; 93010; J1200; J2765

== ENCOUNTER 2025-06-03 06:50 | Outpatient (CLI) | payer MEDICAID, SELFPAY ==
[2025-06-03 07:49] LABS: HCT 33.6 % (36.0-46.0); HGB 11.7 g/dL (11.2-15.7); MCH 31.0 pg (27.0-33.0); MCHC 34.8 % (32.0-36.0); MCV 89 fL (80-95); MPV 9.0 fL (8.0-11.0); Platelet Count 454 10^3/uL (130-400); RBC 3.78 10^6/uL (3.93-5.22); RDW 12.2 % (11.7-14.6); RDW-SD 39.6 fL; WBC 18.32 10^3/uL (4.4-10.8)
[2025-06-03] MEDS: Lactated Ringers 500 ML IV (07:50)
[2025-06-03 08:05] LABS: Lipase 27 U/L (<78)
[2025-06-03 08:15] VITALS: TEMP 36.5
[2025-06-03] MEDS: Ondansetron 4 MG/2 ML VIAL IVP (08:15)
[2025-06-03 08:17] LABS: ALT 15 U/L (14-59); AST 14 U/L (15-37); Albumin 3.1 g/dL (3.4-5.0); Alkaline Phosphatase 91 U/L (46-116); Anion Gap 9.2 mmol/L (3-11); BUN 4 mg/dL (7-18); Bilirubin, Total 0.4 mg/dL (0.2-1.0); CO2 26.8 mmol/L (21.0-32.0); Calcium 9.2 mg/dL (8.5-10.1); Chloride 103 mmol/L (98-107); Estimated GFR 119.99 (mL/min/1.73m2); Glucose 120 mg/dL (74-106); Sodium 139 mmol/L (136-145); Total Protein 6.8 g/dL (6.4-8.2)
[2025-06-03 08:19] LABS: Potassium 2.8 mmol/L (3.5-5.1)
--- NOTE | 2025-06-03 09:01 | HPE_ITS ---
Date of service: 06/03/25 Time of Service: 09:01 Assessment and Plan Assessment and plan (1) : Status: Acute Assessment and plan: 30 yo ( x1, x1) at 23 6/7 as dated by 14 wk US (LEONEL 09/24/2025) - Rh+ / Rub I / VZV I - Heart tones doppled 130's - complcated by h/o preE w/SF x2, cardiac echogenic focus (2) Hyperemesis gravidarum: Status: Inactive Assessment and plan: IV fluids, banana bag, scopolamine patch, IV Zofran. Potassium is low and being replaced. Sign out given to Dr. Ordonez. Will manage care form here. History of Present Illness Narrative: 30 yo ( x1, x1) at 23 6/7 as dated by 14-week ultrasound (LEONEL 09/23/2025) presents for nausea and vomiting since this morning at 2 am. Patient contacted me at 6:45 stating she was having persistent nausea and vomiting and that she had a vasovagal episode in the shower. She has a known history of hyperemesis gravidarum. She takes Zofran at home but gets little relief. She denies any consistently helpful interventions. She reports good movement and denies any vaginal bleeding or cramping. Review of Systems All systems reviewed & are unremarkable except as noted in HPI and below PFSH All Active Problems Chronic hypertension during (Acute) Elevated platelet count (Acute) Elevated liver enzymes (Acute) History of pre-eclampsia in prior , currently (Acute) Marijuana use during (Acute) History of delivery, currently (Acute) (Acute) Medical History Early stage of Bradycardia Depression 2018 . 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 herniation of nucleus pulposis vs residual scaring from previous disk surgery. Eval at [facility] with MRI w/o contrast. Will need to f/u in pain clinic PP for eval of pain. delivery delivered 02/12/19. At term secondary to severe BP, H/A remote from delivery. Preeclampsia in period 11/05/2017. Treated with labetalol several weeks . 02/11/19. Presented in labor with elevated blood pressure. Rx MgSO4 and Labetalol PP. Bradycardia 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/2013) HR 40-60 BPM Surgical History Spinal L4and L5 repair S/P section Family History Mother Essential hypertension Hypothyroidism Mental disorder Anxiety and depression-Therapy and ? meds Father Substance abuse ?? 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 Date GA/Weeks # Preg Succ Route Wgt Sex [facility] No Yes vaginal 6 lb 5 oz Male 2 hrs [facility], [place] 02/12/19 36 No Yes 5 lb 2 oz Female regional [facility], Dr. Cintron Delivery Date: 11/05/17 Last Updated by: Izabella Hackett'valarie, RN delivered, [place], labetalol for a couple of months Delivery Date: 02/12/19 Last Updated by: Izabella Smith Severe range BP, no response to IV meds, no labor, went to [facility] Labetalol for 6 months. Meds Allergies and Home Medications Allergies Allergy/AdvReac Type Severity Reaction Status Date / Time meperidine HCl (From [facility]or Hospitalerol) Allergy Intermediate Swelling/Ed Unverified 05/24/25 15:16 chaim Home Medications ?Medication ?Instructions ?Recorded ?Confirmed ?Type metoclopramide HCl 10 mg tablet 10 mg PO Q6H PRN nause a and 02/17/25 05/24/25 Rx (Reglan) vomiting #60 tabs promethazine 25 mg rectal 25 mg GA Q6H PRN nausea and 02/17/25 05/24/25 Rx suppository vomiting 30 days #24 supp aspirin 81 mg tablet,delayed 162 mg (2 x 81 mg) PO ESTELLE LY #60 03/02/25 05/24/25 Rx release tabs vitamins with calcium 1 tab PO DAILY #90 tabs 03/02/25 05/24/25 Rx no.72-iron 27 mg-folic acid 1 mg tablet ( Vitamins Plus Low Iron) ondansetron 8 mg disintegrating 8 mg PO Q8H 30 days #9 0 tabs 04/25/25 05/24/25 Rx tablet Exam Narrative Exam Narrative: general: general malaise; stable appearing in rney. Ambulating without issue pulm: CTAB card: RRR; no overt arrythmias or murmurs abd: gravid, non-tender ext: No edema psych: cooperative; modestly frustrated Results Labs 06/03/25 07:37 06/03/25 07:37 Labs: Laboratory Results - last 24 hr 06/03/25 07:37 WBC 18.32 H RBC 3.78 L Hgb 11.7 Hct 33.6 L MCV 89 MCH 31.0 MCHC 34.8 RDW 12.2 Plt Count 454 H MPV 9.0 Sodium 139 Potassium 2.8 L* Chloride 103 Carbon Dioxide 26.8 Anion Gap 9.2 BUN 4 L Creatinine 0.7 Est GFR (CKD-EPI 2020) 119.99 Glucose 120 H Calcium 9.2 Total Bilirubin 0.4 AST 14 L ALT 15 Alkaline Phosphatase 91 Total Protein 6.8 Albumin 3.1 L Lipase 27 Lipase 27 (WNL) magnesium pending phosphorus pending Last Vital Signs Temp 97.7 F 06/03/25 08:15 Time Spent Time spent with Patient: 40-54 minutes Time was spent: preparing to see the patient(eg.review tests), obtaining and/or reviewing separately otained hiistory, ordering medications,tests, procedures, referring, communicating with other health campground caretaker, indepentently interpreting results and care coordination
[2025-06-03 09:12] LABS: Lab Add On Test DONE
[2025-06-03 09:26] LABS: Magnesium 1.4 mg/dL (1.8-2.4)
[2025-06-03 09:37] VITALS: BP 152/64; PULSE 43; RESP 12; TEMP 36.5
[2025-06-03] MEDS: POTASSIUM CHLORIDE/D5-0.9%NACL 1,000 ML 150 MEQ IV (09:55)
--- NOTE | 2025-06-03 09:58 | PGE_ITS ---
Date of Service Date of service: 06/03/25 Time of Service: 09:58 Assessment and Plan Assessment and plan (1) : Status: Acute (2) History of pre-eclampsia in prior , currently : Status: Acute (3) Marijuana use during : Status: Acute (4) Chronic hypertension during : Status: Acute (5) Acute hypokalemia: Status: Inactive (6) Nausea and vomiting: Status: Inactive Assessment and plan: Patient has a significant . This is an ongoing, chronic for her. She also has hypokalemia today. Will still replace her potassium, IV hydration. Antiemetics. Continue to monitor. Subjective Subjective Interval history since last seen: Patient seen this morning and chart and labs reviewed. Patient balance significant nausea and vomiting during . This is chronic and consistent for her. In the past, she has also been worked up for bradycardia with no discrete cause. This morning, at approximately 2:30 AM, she woke up with nausea vomiting and unable to tolerate oral intake. She feels poorly. Currently, she is in the shower for comfort. Labs are reviewed. Patient has slightly low potassium at 3.1. This will be replaced. Will try to control her nausea with antiemetics, advance diet when tolerated. Continue to monitor closely. Objective Last Vital Signs Temp 97.7 F 06/03/25 09:37 Pulse 43 L 06/03/25 09:37 Resp 12 06/03/25 09:37 BP 152/64 H 06/03/25 09:37 Laboratory Results - last 24 hr 06/03/25 07:37 WBC 18.32 H RBC 3.78 L Hgb 11.7 Hct 33.6 L MCV 89 MCH 31.0 MCHC 34.8 RDW 12.2 Plt Count 454 H MPV 9.0 Sodium 139 Potassium 2.8 L* Chloride 103 Carbon Dioxide 26.8 Anion Gap 9.2 BUN 4 L Creatinine 0.7 Est GFR (CKD-EPI 2020) 119.99 Glucose 120 H Calcium 9.2 Phosphorus 3.0 Magnesium 1.4 L Total Bilirubin 0.4 AST 14 L ALT 15 Alkaline Phosphatase 91 Total Protein 6.8 Albumin 3.1 L Lipase 27 Add-On Test Request DONE Time Spent with Patient Time Spent with Patient: 35-49 minutes Time was spent: preparing to see the patient(eg.review tests), obtaining and/or reviewing separately calvin farmer ordering medications,tests, procedures and referring, communicating with other health child care worker
[2025-06-03 10:10] VITALS: TEMP 36.5
--- NOTE | 2025-06-03 11:46 | PGE_ITS ---
Date of Service Date of service: 06/03/25 Time of Service: 11:47 Assessment and Plan Assessment and plan (1) : Status: Acute (2) History of delivery, currently : Status: Acute (3) Marijuana use during : Status: Acute (4) Chronic hypertension during : Status: Acute (5) Nausea and vomiting: Status: Inactive Assessment and plan: Patient has chronic and ongoing nausea and vomiting, worsening . She has medications at home which include Zofran, Reglan, Phenergan suppositories. Prescription for oral potassium supplementation was sent to the pharmacy for her to machine pecan picker and take once her stomach has settled. She strongly desires discharge home. Her follow-up with close office follow-up, Subjective Subjective Interval history since last seen: Patient requested to have a conversation about discharge. She is feeling better, though still somewhat nauseated. She is tolerating oral intake. She states that she has all of her medications at home, would like to be discharged. We discussed symptoms and plan of care. She will return if worsening. All of her questions were answered to the best my ability today. She has appointment scheduled in the office on 06/06/2023. Precautions were given. Objective Last Vital Signs Temp 97.7 F 06/03/25 10:10 Pulse 43 L 06/03/25 09:37 Resp 12 06/03/25 09:37 BP 152/64 H 06/03/25 09:37 Laboratory Results - last 24 hr 06/03/25 07:37 WBC 18.32 H RBC 3.78 L Hgb 11.7 Hct 33.6 L MCV 89 MCH 31.0 MCHC 34.8 RDW 12.2 Plt Count 454 H MPV 9.0 Sodium 139 Potassium 2.8 L* Chloride 103 Carbon Dioxide 26.8 Anion Gap 9.2 BUN 4 L Creatinine 0.7 Est GFR (CKD-EPI 2020) 119.99 Glucose 120 H Calcium 9.2 Phosphorus 3.0 Magnesium 1.4 L Total Bilirubin 0.4 AST 14 L ALT 15 Alkaline Phosphatase 91 Total Protein 6.8 Albumin 3.1 L Lipase 27 Add-On Test Request DONE Time Spent with Patient Time Spent with Patient: <25 minutes Time was spent: preparing to see the patient(eg.review tests), obtaining and/or reviewing separately otained hiistory, ordering medications,tests, procedures, referring, communicating with other health professional healthcare representative and counseling the patient
--- NOTE | 2025-06-03 11:53 | DSE_ITS ---
Date of service: 06/03/25 Time of Service: 11:54 DS: Diagnosis Discharge Diagnosis (1) : Status: Acute Asessment and Plan: Follow-up in the office as scheduled (2) History of delivery, currently : Status: Acute (3) Marijuana use during : Status: Acute (4) Chronic hypertension during : Status: Acute (5) Nausea and vomiting: Status: Inactive Asessment and Plan: Has prescriptions at home for Zofran, Phenergan suppositories, Reglan. Potassium supplement sent to the pharmacy Discharge Plan Disposition Patient Disposition: Other Disposition Not Listed Condition: Good Discharge Details Attending Provider: Miladys Heller Primary Care Provider: Zain Ashton Hospital Course Hospital Course: Patient found this morning after being awoken from sleep at approximate 2:30 AM with nausea and vomiting. She was initially seen on the center, and given IV hydration, Zofran IV, and laboratory studies performed. She was found to have slightly low potassium. Initial bag of potassium replacement was started. Patient, after approximately 3 hours of hospital requested discharge home as she was feeling better. Oral potassium supplementation sent to the pharmacy. She states that she has at home medications which include Home Meds and New Rx's Prescriptions: New potassium chloride 10 mEq capsule, extended release 10 meq PO BID Qty: 4 0RF Rx Instructions: 1 p.o. twice daily for 2 days No Action Vitamin Plus Low Iron 27 mg iron- 1 mg tablet 1 tab PO DAILY Qty: 90 5RF aspirin 81 mg tablet,delayed release (DR/EC) 162 mg PO DAILY Qty: 60 5RF ondansetron 8 mg tablet,disintegrating 8 mg PO Q8H 30 Days Qty: 90 2RF metoclopramide HCl [Reglan] 10 mg tablet 10 mg PO Q6H PRN (Reason: nausea and vomiting) Qty: 60 1RF promethazine 25 mg suppository 25 mg ME Q6H PRN (Reason: nausea and vomiting) 30 Days Qty: 24 5RF Discharge Instructions Activity:: Activity as Tolerated Activity:: Activity as Tolerated DS: Summary Time Spent with Patient providing and/or coordinating discharge services: Less than 30 minutes Status at Discharge Functional status at discharge: independent ambulation Overall status at discharge: patient is progressing back to baseline Mental Status: mental status grossly normal Speech and Movement: speech and movement normal Mood: congruent mood Affect: normal affect Exam Const General: cooperative, healthy appearing, comfortable, no acute distress, well developed and well groomed HENMT Head: normal to inspection Eyes General: appearance normal, both eyes and all related structures Neck Neck: normal visual inspection, supple, no anterior neck swelling and nontender Resp Effort & Inspection: normal respiratory effort, no audible wheezes and no cough Cardio Rate: regular rate Rhythm: regular rhythm Skin General skin exam: no rashes or lesions noted Extrem General: normal to inspection, no clubbing, cyanosis or edema and no calf tenderness bilaterally Psych Appearance: grossly normal Mental Status: mental status grossly normal Speech and Movement: speech and movement normal Mood: congruent mood Affect: normal affect Insight: insight good Judgment: judgment good DS: Data Vitals/I&O Vitals and I&O: Vital Signs Temperature 97.7 F 06/03/25 10:10 Temperature Source Tympanic 06/03/25 09:37 Pulse 43 L 06/03/25 09:37 Respiratory Rate 12 06/03/25 09:37 Blood Pressure 152/64 H 06/03/25 09:37 Blood Pressure Mean 93 06/03/25 09:37 Oxygen Delivery Method Room Air 06/03/25 09:37 Oxygen Flow Rate 0 06/03/25 09:37 Pain Level 0 06/03/25 08:15 Data Completed and Pending Labs on day of discharge: Labs from last 24 hours 06/03/25 07:37 WBC 18.32 H RBC 3.78 L Hgb 11.7 Hct 33.6 L MCV 89 MCH 31.0 MCHC 34.8 RDW 12.2 Plt Count 454 H MPV 9.0 Sodium 139 Potassium 2.8 L* Chloride 103 Carbon Dioxide 26.8 Anion Gap 9.2 BUN 4 L Creatinine 0.7 Est GFR (CKD-EPI 2020) 119.99 Glucose 120 H Calcium 9.2 Phosphorus 3.0 Magnesium 1.4 L Total Bilirubin 0.4 AST 14 L ALT 15 Alkaline Phosphatase 91 Total Protein 6.8 Albumin 3.1 L Lipase 27 Add-On Test Request DONE PFS All Active Problems Chronic hypertension during (Acute) Elevated platelet count (Acute) Elevated liver enzymes (Acute) History of pre-eclampsia in prior , currently (Acute) Marijuana use during (Acute) History of delivery, currently (Acute) (Acute) Medical History Early stage of Bradycardia Depression 2018 . 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 herniation of nucleus pulposis vs residual scaring from previous disk surgery. Eval at [facility] [place] [place] with MRI w/o contrast. Will need to f/u in pain clinic PP for eval of pain. delivery delivered 02/12/19. At term secondary to severe BP, H/A remote from delivery. Preeclampsia in period 11/05/2017. Treated with labetalol several weeks . 02/11/19. Presented in labor with elevated blood pressure. Rx MgSO4 and Labetalol PP. Bradycardia 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/2013) HR 40-60 BPM Surgical History Spinal L4and L5 repair S/P section Family History Mother Essential hypertension Hypothyroidism Mental disorder Anxiety and depression-Therapy and ? meds Father Substance abuse ?? 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 Date GA/Weeks # Preg Succ Route Wgt Sex Labor Lgth Anesth esia Location [facility] 11/05/17 37 No Yes vaginal 6 lb 5 oz Male 2 hrs [facility], [facility] 02/12/19 36 No Yes 5 lb 2 oz Female [facility], Dr. Cintron Delivery Date: 11/05/17 Last Updated by: Izabella Smith Prec'ed, RN delivered, [place], labetalol for a couple of months Delivery Date: 02/12/19 Last Updated by: Izabella Smith Severe range BP, no response to IV meds, no labor, went to [facility]. Labetalol for 6 months. Time Spent with Patient Time Spent with Patient: <45 minutes Time was spent: preparing to see the patient(eg.review tests), obtaining and/or reviewing separately otained hiistory, ordering medications,tests, procedures, referring, communicating with other health director of primary care and counseling the patient
== END 2025-06-03 11:55 | disposition home health service (06) ==
LOC: BCD 06:52 → OBS 07:06
PROVIDERS: PCP Student in an Organized Health Care Education/Training Program; Visit Provider Obstetrics & Gynecology
DX: Z34.90 Encounter for supervision of normal pregnancy, unspecified, unspecified trimester (principal); O21.0 Mild hyperemesis gravidarum; O09.299 Supervision of pregnancy with other poor reproductive or obstetric history, unspecified trimester; O99.320 Drug use complicating pregnancy, unspecified trimester; F12.90 Cannabis use, unspecified, uncomplicated; O10.919 Unspecified pre-existing hypertension complicating pregnancy, unspecified trimester; E87.6 Hypokalemia; R11.2 Nausea with vomiting, unspecified; O34.219 Maternal care for unspecified type scar from previous cesarean delivery
CPT/HCPCS: 80053; 83690; 85027; 96360; 96361; 83735; 84100; J2405

== ENCOUNTER 2025-07-05 03:34 | Outpatient (CLI) | payer MEDICAID, SELFPAY ==
--- NOTE | 2025-07-05 07:00 | DI.US_ITS ---
Exam(s) US OB KEYANA WEIGHT EXAM: US OB KEYANA WEIGHT CLINICAL HISTORY: growth and KEYANA,chronic hypertension,O34.219,O10.919. TECHNIQUE: Transabdominal obstetrical ultrasound performed. COMPARISON: US POCUS EXAM from 04/09/2025 FINDINGS:: Number of fetuses: 1 position: Cephalic Placental location: Anterior no evidence of previa. BIOMETRIC DATA: BPD: 71 mm, 28+ 6 weeks HC: 270 mm, 29+ 3 weeks AC: 257 mm , 29+ 6 weeks FL: 55 mm, 28+ 5 weeks EFW: 1386 grams, 74th percentile, Composite Age: 29+ 2 weeks LEONEL: 18 September 2025 Heart Rate: 154 Amniotic fluid index: 12.7 cm . Visually, amount of fluid is within normal limits. IMPRESSION: size and weight are within the expected range. DATA REPOSITORY:
== END 2025-07-05 03:54 ==
LOC: DI 03:34
PROVIDERS: PCP Student in an Organized Health Care Education/Training Program; Visit Provider Obstetrics & Gynecology
DX: O10.913 Unspecified pre-existing hypertension complicating pregnancy, third trimester (principal); Z3A.29 29 weeks gestation of pregnancy
CPT/HCPCS: 76816

== ENCOUNTER 2025-07-06 13:44 | Outpatient (CLI) | payer MEDICAID, SELFPAY ==
[2025-07-06 13:53] VITALS: BP 145/76; PULSE 80; TEMP 36.6
[2025-07-06 13:56] VITALS: BP 145/76; PULSE 80
[2025-07-06 14:15] VITALS: BP 137/82; PULSE 75
[2025-07-06 14:29] LABS: Abs Immature Grans 0.30 10^3/uL (0.0-0.06); HCT 32.6 % (36.0-46.0); HGB 11.2 g/dL (11.2-15.7); Immature Grans % 1.7 %; MCH 30.8 pg (27.0-33.0); MCHC 34.4 % (32.0-36.0); MCV 90 fL (80-95); MPV 8.6 fL (8.0-11.0); Platelet Count 410 10^3/uL (130-400); RBC 3.64 10^6/uL (3.93-5.22); RDW 12.3 % (11.7-14.6); RDW-SD 40.1 fL; WBC 17.85 10^3/uL (4.4-10.8)
[2025-07-06 14:45] LABS: ALT 30 U/L (14-59); AST 18 U/L (15-37); Albumin 2.6 g/dL (3.4-5.0); Alkaline Phosphatase 98 U/L (46-116); Anion Gap 5.7 mmol/L (3-11); BUN 4 mg/dL (7-18); Bilirubin, Total 0.2 mg/dL (0.2-1.0); CO2 30.3 mmol/L (21.0-32.0); Calcium 8.4 mg/dL (8.5-10.1); Chloride 100 mmol/L (98-107); Estimated GFR 124.53 (mL/min/1.73m2); Glucose 102 mg/dL (74-106); Potassium 3.3 mmol/L (3.5-5.1); Sodium 136 mmol/L (136-145); Total Protein 6.1 g/dL (6.4-8.2)
[2025-07-06 14:52] LABS: RBC Morphology Normal
[2025-07-06 15:41] LABS: Glucose,1 Hr (Glucola) 94 mg/dL (80-140)
--- NOTE | 2025-07-06 17:34 | W.OBNST ---
Date of service: 07/06/25 Time of Service: 15:00 NST Evaluation Reason for NST Reasons for Nonstress Test: GESTATIONAL HYPERTENSION Gestational Age Gestational Age in Weeks and Days: 28 Weeks and 4Days Test and Monitor Explained Test/Monitor Explained: Test Explained and Monitor Explained Vital Signs Blood Pressure: 145/76 Pulse: 80 Temperature: 97.9 F Weight: 172 lb NST Information Date on Monitor: 07/06/25 Time on Monitor: 13:47 Date off Monitor: 07/06/25 Time off Monitor: 14:17 Total Time on Monitor: 30 NST Interventions: PO Hydration NST Evaluation Patient States Movement: Present FHR Baseline: 145 Variability: Moderate 6-25 bpm Accelerations: 15x15 Decelerations: None NST Results: Reactive Note Ultrasound Done: N/A. NST Note Note: Reviewed the results of pt's growth sono - normal. Her BPs are improved but still mildly elevated. Labs are normal, PCR still pending. 1hr GTT also pending. She denies any sxms. She will return to the office in 1wk for repeat BP check. NST Reviewed and Verified by: Crissy Carty
[2025-07-06 17:36] VITALS: BP 145/76; PULSE 80; TEMP 36.6
== END 2025-07-06 15:45 ==
LOC: BCD 13:45 → OBS 13:52
PROVIDERS: PCP Student in an Organized Health Care Education/Training Program; Visit Provider Obstetrics & Gynecology
DX: O09.293 Supervision of pregnancy with other poor reproductive or obstetric history, third trimester; O13.3 Gestational [pregnancy-induced] hypertension without significant proteinuria, third trimester; Z3A.28 28 weeks gestation of pregnancy
CPT/HCPCS: 36415; 80053; 82950; 59025; 85025

== ENCOUNTER 2025-07-06 13:47 | Outpatient (REF) | payer MEDICAID, SELFPAY ==
[2025-07-06 14:11] LABS: PROTEIN < 6.0 mg/dL
[2025-07-06 14:14] LABS: Cannabinoids THC Positive (Negative); METHADONE URINE SCREEN Negative (Negative)
[2025-07-07 12:33] LABS: Fentanyl Scr w/Rfx Confirm Negative ng/mL (<1)
== END 2025-07-06 13:48 | disposition home or self-care (01) ==
LOC: LBN 13:47
PROVIDERS: PCP Student in an Organized Health Care Education/Training Program; Visit Provider Obstetrics & Gynecology
DX: Z34.92 Encounter for supervision of normal pregnancy, unspecified, second trimester (principal); O09.292 Supervision of pregnancy with other poor reproductive or obstetric history, second trimester
CPT/HCPCS: 80307; 80348; 82565; 84156

== ENCOUNTER 2025-07-13 10:50 | Observation (INO) | payer MEDICAID, SELFPAY ==
[2025-07-13] VITALS (35 sets, daily range): BP systolic 138–196; BP diastolic 72–102; PULSE 63–88; RESP 16–17; TEMP 36.4–36.8; O2SAT 96
[2025-07-13 11:14] LABS: Abs Immature Grans 0.30 10^3/uL (0.0-0.06); HCT 36.5 % (36.0-46.0); HGB 12.3 g/dL (11.2-15.7); Immature Grans % 1.7 %; MCH 30.3 pg (27.0-33.0); MCHC 33.7 % (32.0-36.0); MCV 90 fL (80-95); MPV 8.9 fL (8.0-11.0); Platelet Count 493 10^3/uL (130-400); RBC 4.06 10^6/uL (3.93-5.22); RDW 12.4 % (11.7-14.6); RDW-SD 40.6 fL; WBC 17.83 10^3/uL (4.4-10.8)
[2025-07-13] MEDS: Ondansetron 4 MG/2 ML VIAL IVP (11:17)
[2025-07-13 11:31] LABS: Glucose Negative (Negative); Prot/Crea Ur Ratio 0.27
[2025-07-13 11:34] LABS: ALT 29 U/L (14-59); AST 21 U/L (15-37); Albumin 2.7 g/dL (3.4-5.0); Alkaline Phosphatase 127 U/L (46-116); Anion Gap 7.9 mmol/L (3-11); BUN 2 mg/dL (7-18); Bilirubin, Total 0.5 mg/dL (0.2-1.0); CO2 30.1 mmol/L (21.0-32.0); Calcium 8.6 mg/dL (8.5-10.1); Chloride 100 mmol/L (98-107); Glucose 89 mg/dL (74-106); Potassium 3.1 mmol/L (3.5-5.1); Sodium 138 mmol/L (136-145); Total Protein 6.8 g/dL (6.4-8.2)
[2025-07-13 11:36] LABS: C & S Indicated? No; RBC Negative HPF (0-2); WBC Negative HPF (0-5)
--- NOTE | 2025-07-13 11:48 | HPE_ITS ---
Date of service: 07/13/25 Time of Service: 13:50 Assessment and Plan Assessment and plan (1) Pelvic pressure in female: Status: Acute (2) Nausea/vomiting in : Status: Acute (3) Gestational hypertension: Status: Acute Assessment and plan: 30 yo ( x1, x1) at 29 4/7 as dated by trimester ultrasound (LEONEL 09/24/2025) presented to the clinic for routine care today, and was incidentally discovered to have concerning the elevated blood pressures. Patient also went on to report elevated concerns for labor based on pelvic pressure and reported contractions. She was sent over to labor and delivery for further assessment where she was found to have persistently elevated blood pressures ranging anywhere from the 140s to 160s over 80s to low 100s. Her has been complicated by persistent nausea and vomiting, and patient denies any changes in baseline from her typical symptoms. She further denies any concerns for headache, abdominal pain, or any other additional concerns. She denies any known history of chronic hypertension or any need to medicate hypertension outside of ; however, there is an emergency department note from 2021 that is appreciated to reflect a blood pressure of 160/100. Patient denies any knowledge of this blood pressure. Her is further complicated by marijuana use in . Pelvic exam was unremarkable for any concerning discharge and a wet mount performed, no evidence of trichomonas (GCC swabs collected). SVE is noted to be closed thick and high and FFN is negative. She has no contractions on the monitor. Regarding her blood pressures, her labs are noted to be largely appropriate, albeit her protein creatinine ratio is 0.27 which is increased from the undetectable level that it was initially at her . A complete transabdominal ultrasound was performed, today, and found cephalic presentation with an KEYANA of 10.5 and an MVP of 4.54. Given the persistent elevations of her blood pressures without known history of chronic hypertension at such an early gestational age in the setting of a patient denies a history of preeclampsia with severe features in both her prior pregnancies, I discussed my concerns with [facility] (Dr. Montalvo) and she was agreeable to a transfer for extended observation. GBS was collected today, and initial dose of Betamethasone was administered. Magnesium initiated in an abundance of caution. She is accepted to [facility] room 22. OB-HPI Labor/Delivery History of Present Illness Reason for Visit: NST Chief Complaint: Other (blood pressures, pelvic pressure, nausea / vomiting). LEONEL Calculator Estimated Delivery Date Method Current WG Current Estimate 09/24/25 Ultrasound #1 29w 4d Other Estimates 09/04/25 LMP (Certain) 32w 3d 09/23/25 Ultrasound #2 29w 5d History of Present Expected Delivery Route/Plan Likely repeat c/s - MD BARTHOLOME[facility] - Marco Anand (first child) BG Specific Issues/Plan 1. Hx pre-eclampsia x2 and likely CHTN (multiple episodes of elevated BPs though pt associates these with being sick). All BPs at Ob appts during this have been normal. - Baseline labs -Initial CMP with barely elevated LFT's - normal repeat x2, -urine pr/cr ratio -0.35; 24 hr urine for protein - unable to calculate - Start low dose ASA @ 12 wks (Pt forgot to start. Per pt, MFM said that she did not need to start it at 19wks as it was too late for benefit) - Level 2: isolated intra-cardiac echogenic focus - MFM consult: growth scans @ 28, 32, & 36 wks, exercise, calcium rich diet, . - If needs medication for BP, testing twice weekly @ 32 wks. - delivery 38th wk 2. Prior CS: desires repeat c/s unless spontaneous labor-scheduled repeat after 39 weeks with bilateral salpingectomy. 3. Hospitalized @[facility] for hyperemesis and bradycardia 02/23-02/25. Also had elevated BPs during that stay - Had cardiology consult 02/23:sinus bradycardia with occasional junctional escape, TTE normal, no acute intervention indicated. Uncertain impact on delivery location?? 4. 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 herniation of nucleus pulposis vs residual scaring from previous disk surgery. Eval at [facility] with MRI w/o contrast. Will need to f/u in pain clinic PP for eval of pain. delivery delivered 02/12/19. At term secondary to severe BP, H/A remote from delivery. Preeclampsia in period 11/05/2017. Treated with labetalol several weeks . 02/11/19. Presented in labor with elevated blood pressure. Rx MgSO4 and Labetalol PP. Bradycardia 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/2013) HR 40-60 BPM Surgical History Spinal L4and L5 repair S/P section Family History Mother Essential hypertension Hypothyroidism Mental disorder Anxiety and depression-Therapy and ? meds Father Substance abuse ?? 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 Date GA/Weeks # Preg Succ Route Wgt Sex Labor Lgth Anesth esia Location [facility] 11/05/17 37 No Yes vaginal 6 lb 5 oz Male 2 hrs [facility], [facility] 02/12/19 36 No Yes 5 lb 2 oz [facility] [place] Dr. Cintron Delivery Date: 11/05/17 Last Updated by: Izabella Smith Precip'ed, RN delivered, [place], labetalol for a couple of months Delivery Date: 02/12/19 Last Updated by: Izabella Smith Severe range BP, no response to IV meds, no labor, went to [facility] Labetalol for 6 months. Meds Allergies and Home Medications Allergies Allergy/AdvReac Type Severity Reaction Status Date / Time meperidine HCl (From Demerol) Allergy Intermediate Swelling/Ed Unverified 07/13/25 09:50 chaim Home Medications Medication Instructions Recorded Confirmed Type metoclopramide HCl 10 mg tablet 10 mg PO Q6H PRN nause a and 02/17/25 07/06/25 Rx (Reglan) vomiting #60 tabs promethazine 25 mg rectal 25 mg [place] Q6H PRN nausea and 02/17/25 07/06/25 Rx suppository vomiting 30 days #24 supp aspirin 81 mg tablet,delayed 162 mg (2 x 81 mg) PO ESTELLE LY #60 03/02/25 07/06/25 Rx release tabs vitamins with calcium 1 tab PO DAILY #90 tabs 03/02/25 07/06/25 Rx no.72-iron 27 mg-folic acid 1 mg tablet ( Vitamins Plus Low Iron) ondansetron 8 mg disintegrating 8 mg PO Q8H 30 days #9 0 tabs 04/25/25 07/06/25 Rx tablet potassium chloride 10 mEq 10 meq PO BID #4 caps 07/06/25 Rx capsule,extended release bupropion HCl 150 mg 24 hr tablet, 150 mg PO QAM #30 t abs 06/22/25 07/06/25 Rx extended release (Wellbutrin XL) fluoxetine 20 mg capsule 20 mg PO DAILY #30 caps 06/1207/06/25 Rx flu vac ts 2024-(6mos up)-PF 45 0.5 ml IM ONCE #0.5 mL 07/13/25 Clinic mcg(15mcg x3)/0.5 mL IM syringe Exam Physical Exam Vital signs: Temp Pulse Resp BP 98.1 F 63 17 158/90 H 07/13/25 11:10 07/13/25 11:10 07/13/25 11:10 07/13/25 11:43 Narrative: General: Well-nourished female in no immediate distress Respiratory: No overt respiratory distress Abdomen: Gravid, nontender; no right upper quadrant tenderness Extremities: Trace edema noted equally bilaterally Psychiatric: Cooperative, appropriate : Speculum exam is without evidence of abnormal discharge or pooling. SVE closed thick high. Swabs collected including GBS FHT: Reactive and reassuring Fisk: Quiet Detailed Labor and Delivery Exam Rahman Score: Cervical Points Exam 0 1 2 3 Dilation Closed 1-2cm 3-4 cm 5-6cm Effacement 0-30% 40-50% 60-70% 80% Consistency Firm Medium Soft Station -3 -2 -1,0 +1,+2 Position Posterior Mid Anterior Results Abnormal Lab Findings: Abnormal Labs 07/13/25 07/13/25 11:02 11:03 WBC 17.83 H Plt Count 493 H Absolute Neutrophils 14.34 H Absolute Monocytes 1.28 H Potassium 3.1 L BUN 2 L Creatinine 0.4 L Alkaline Phosphatase 127 H Albumin 2.7 L Urine pH 8.5 H Urine Protein 30 H Urine Bilirubin Small H Urine Urobilinogen 2.0 H Risk Assessment Risk for Shoulder Dystocia Historical/Initial OB: NEGATIVE FOR: Pelvic Abnormality, Pre- BMI>30, Previous Shoulder Dystocia or Previous Macrosomia Risk for Pre-Eclampsia Date Initiated/Initials: start at 12 wks. JK Yes, if one or more: POSTIVE FOR: Hx Pre-E/Gest HTN; NEGATIVE FOR: Chronic HTN, Multiple Gestation, Pre-gestational DM, Renal Disease, Systemic Lupus or APA Syndrome Yes, if 2 or more: NEGATIVE FOR: Nulliparity, Age>= 35 yrs, >10yr btwn pregnancies, BMI>30, ethinicty, Mother/Sister w/ Pre-E or Previous IUGR Risk for Post- Hemorrhage Initial: NEGATIVE FOR: Multiple Gestation, Previous PPH, Known Clotting Deficiency, Grand Multiparity or Anticoagulation Risks Reviewed Risks Reviewed Upon Admission: Yes
[2025-07-13 12:16] LABS: Fetal Fibronectin Negative (Negative)
[2025-07-13] MEDS: Betamet Acet/Betamet Na Ph Inj. 30 MG/5 ML 12 MG IM (12:38)
[2025-07-13] MEDS: MAGNESIUM SULFATE 20 GM/500 ML BAG IV_INF (13:55)
[2025-07-13] MEDS: Acetaminophen 500 MG TAB 1000 MG PO (16:01)
[2025-07-13 16:28] LABS: Magnesium 3.9 mg/dL (1.8-2.4)
--- NOTE | 2025-07-13 17:00 | W.OBNST ---
Date of service: 07/13/25 Time of Service: 17:00 NST Evaluation Reason for NST Reasons for Nonstress Test: LABOR Gestational Age Gestational Age in Weeks and Days: 35 Weeks and 4Days Test and Monitor Explained Test/Monitor Explained: Test Explained, Monitor Explained and Patient Verbalized Understanding Vital Signs Blood Pressure: 144/78 Pulse: 68 Temperature: 98.1 F Weight: 166 lb 6.4 oz Urine Results Urine Protein: Negative Urine Ketones: Negative Urine Glucose: Negative Urine Blood: Negative NST Information Date on Monitor: 07/13/25 Time on Monitor: 11:42 Date off Monitor: 07/13/25 Time off Monitor: 12:14 Total Time on Monitor: 32 NST Interventions: IV Fluids, Reposition Patient and Notify Provider Contraction Frequency: Cramping, no contractions NST Evaluation Patient States Movement: Present FHR Baseline: 145 Variability: Moderate 6-25 bpm Accelerations: 15x15 Decelerations: None NST Results: Reactive Note Ultrasound Done: N/A. NST Note NST Reviewed and Verified by: Miladys Heller
--- NOTE | 2025-07-13 18:15 | DSE_ITS ---
Date of service: 07/13/25 Time of Service: 18:16 DS: Diagnosis Discharge Diagnosis (1) Pelvic pressure in female: Status: Acute (2) Nausea/vomiting in : Status: Acute (3) Gestational hypertension: Status: Acute Discharge Plan Disposition Patient Disposition: Other Disposition Not Listed Other Facility: [facility] [place] [place] Condition: Stable Condition: Good Discharge Details Reason For Visit: NST Attending Provider: Miladys Heller Primary Care Provider: Zain Ashton Hospital Course Hospital Course: 30 yo ( x1, x1) at 29 4/7 as dated by trimester ultrasound (LEONEL 09/24/2025) presented to the clinic for routine care today, and was incidentally discovered to have concerning the elevated blood pressures. Patient also went on to report elevated concerns for labor based on pelvic pressure and reported contractions. She was sent over to labor and delivery for further assessment where she was found to have persistently elevated blood pressures ranging anywhere from the 140s to 160s over 80s to low 100s. Her has been complicated by persistent nausea and vomiting, and patient denies any changes in baseline from her typical symptoms. She further denies any concerns for headache, abdominal pain, or any other additional concerns. She denies any known history of chronic hypertension or any need to medicate hypertension outside of ; however, there is an emergency department note from 2021 that is appreciated to reflect a blood pressure of 160/100. Patient denies any knowledge of this blood pressure. Her is further complicated by marijuana use in . Pelvic exam was unremarkable for any concerning discharge and a wet mount performed, no evidence of trichomonas (GCC swabs collected). SVE is noted to be closed thick and high and FFN is negative. She has no contractions on the monitor. Regarding her blood pressures, her labs are noted to be largely appropriate, albeit her protein creatinine ratio is 0.27 which is increased from the undetectable level that it was initially at her . A complete transabdominal ultrasound was performed, today, and found cephalic presentation with an KEYANA of 10.5 and an MVP of 4.54. Given the persistent elevations of her blood pressures without known history of chronic hypertension at such an early gestational age in the setting of a patient denies a history of preeclampsia with severe features in both her prior pregnancies, I discussed my concerns with [facility] (Dr. Montalvo) and she was agreeable to a transfer for extended observation. GBS was collected today, and initial dose of Betamethasone was administered. Magnesium initiated in an abundance of caution. She is accepted to [facility] [place] [place]'s birthing Pavilion room 22. Home Meds and New Rx's Prescriptions: No Action Vitamin Plus Low Iron 27 mg iron- 1 mg tablet 1 tab PO DAILY Qty: 90 5RF aspirin 81 mg tablet,delayed release (DR/EC) 162 mg PO DAILY Qty: 60 5RF bupropion HCl [Wellbutrin XL] 150 mg tablet extended release 24 hr 150 mg PO QAM Qty: 30 1RF fluoxetine 20 mg capsule 20 mg PO DAILY Qty: 30 1RF ondansetron 8 mg tablet,disintegrating 8 mg PO Q8H 30 Days Qty: 90 2RF flu vac ts 2024-(6mos up)-PF 45 mcg (15 mcg x 3)/0.5 mL syringe 0.5 ml IM ONCE Qty: 0.5 0RF metoclopramide HCl [Reglan] 10 mg tablet 10 mg PO Q6H PRN (Reason: nausea and vomiting) Qty: 60 1RF promethazine 25 mg suppository 25 mg [place] Q6H PRN (Reason: nausea and vomiting) 30 Days Qty: 24 5RF potassium chloride 10 mEq capsule, extended release 10 meq PO BID Qty: 4 0RF Rx Instructions: 1 p.o. twice daily for 2 days OB:DS Summary Contraception Discussed Contraception Discussed: No, Status at Discharge Functional status at discharge: independent ambulation Overall status at discharge: patient is not back to baseline Mental Status: mental status grossly normal Speech and Movement: speech and movement normal Mood: congruent mood Affect: normal affect Exam Physical Exam Vital signs: Temp Pulse Resp BP Pulse Ox 97.5 F L 73 16 152/77 H 96 07/13/25 16:19 07/13/25 16:16 07/13/25 16:19 07/13/25 16:16 07/13/25 16:19 Narrative: General: Well nourished female resting comfortably Pulm: No overt respiratory distress Abd: Gravid, non-tender; no RUQ tenderness Ext: No swelling Affect: Calm, cooperative PFSH All Active Problems Gestational hypertension (Acute) Nausea/vomiting in (Acute) Pelvic pressure in female (Acute) Anxiety (Chronic) Chronic hypertension during (Acute) Elevated platelet count (Acute) Elevated liver enzymes (Acute) History of pre-eclampsia in prior , currently (Acute) Marijuana use during (Acute) History of delivery, currently (Acute) (Acute) Medical History Early stage of Bradycardia Depression 2018 . 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 herniation of nucleus pulposis vs residual scaring from previous disk surgery. Eval at [facility] [place] [place] with MRI w/o contrast. Will need to f/u in pain clinic PP for eval of pain. delivery delivered 02/12/19. At term secondary to severe BP, H/A remote from delivery. Preeclampsia in period 11/05/2017. Treated with labetalol several weeks . 02/11/19. Presented in labor with elevated blood pressure. Rx MgSO4 and Labetalol PP. Bradycardia 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/2013) HR 40-60 BPM Surgical History Spinal L4and L5 repair S/P section Family History Mother Essential hypertension Hypothyroidism Mental disorder Anxiety and depression-Therapy and ? meds Father Substance abuse ?? 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 Date GA/Weeks # Preg Succ Route Wgt Sex Labor Lgth Anesth esia Location Prov Complic 11/05/17 37 No Yes vaginal 6 lb 5 oz Male 2 hrs [facility], [facility] 02/12/19 36 No Yes 5 lb 2 oz Female regional [facility], Dr. Cintron Delivery Date: 11/05/17 Last Updated by: Izabella Smith Precip'ed, RN delivered, [place], labetalol for a couple of months Delivery Date: 02/12/19 Last Updated by: Izabella Smith Severe range BP, no response to IV meds, no labor, went to [facility]. Labetalol for 6 months. DS: Data Vitals/I&O Vitals and I&O: Vital Signs Temperature 97.5 F L 07/13/25 16:19 Temperature 98.1 F 07/13/25 12:12 Temperature Source Oral 07/13/25 16:19 Pulse 73 07/13/25 16:16 Pulse 68 07/13/25 12:12 Pulse Rhythm Regular 07/13/25 11:10 Respiratory Rate 16 07/13/25 16:19 Blood Pressure 152/77 H 07/13/25 16:16 Blood Pressure 144/78 07/13/25 12:12 Blood Pressure Mean 112 07/13/25 11:43 Pulse Oximetry 96 07/13/25 16:19 Oxygen Delivery Method Room Air 07/13/25 11:10 Oxygen Flow Rate 0 07/13/25 11:10 Pain Level 0 07/13/25 11:10 Intake & Output 07/12/25 07/13/25 07/13/25 23:59 11:59 23:59 Output Total 1150 / 1150 Balance -1150 / -1150 Weight 166 lb 6.4 oz Output: Urine 1150 / 1150 Other: Urine Color Dark Racquel Data Completed and Pending Labs on day of discharge: Labs from last 24 hours 07/13/25 07/13/25 07/13/25 16:06 11:30 11:03 WBC 17.83 H RBC 4.06 Hgb 12.3 Hct 36.5 MCV 90 MCH 30.3 MCHC 33.7 RDW 12.4 Plt Count 493 H MPV 8.9 Immature Gran % 1.7 Neutrophils % 80.4 Lymphocytes % 9.5 Monocytes % 7.2 Eosinophils % 0.8 Basophils % 0.4 Nucleated RBC % 0.0 Absolute Neutrophils 14.34 H Absolute Lymphocytes 1.69 Absolute Monocytes 1.28 H Absolute Eosinophils 0.14 Absolute Basophils 0.07 Sodium 138 Potassium 3.1 L Chloride 100 Carbon Dioxide 30.1 Anion Gap 7.9 BUN 2 L Creatinine 0.4 L Est GFR (CKD-EPI 2020) 137.31 Glucose 89 Calcium 8.6 Magnesium 3.9 H Total Bilirubin 0.5 AST 21 ALT 29 Alkaline Phosphatase 127 H Total Protein 6.8 Albumin 2.7 L Urine Color Urine Clarity Urine pH Ur Specific [place] Urine Protein Urine Ketones Urine Blood Urine Nitrite Urine Bilirubin Urine Urobilinogen Ur Leukocyte Esterase Urine RBC Urine WBC Ur Epithelial Cells Urine Crystals Urine Bacteria Urine Casts Urine Mucus Ur Culture Indicated? Ur Random Creatinine U Random Total Protein U Baldwin Prot/Creat Ratio Urine Glucose Chlamydia DNA Probe Pending Chlamydia/GC DNA Source Pending N.gonorrhoeae DNA Probe Pending Fibronectin Negative ABO/Rh A Positive Antibody Screen NEGATIVE 07/13/25 11:02 WBC RBC Hgb Hct MCV MCH MCHC RDW Plt Count MPV Immature Gran % Neutrophils % Lymphocytes % Monocytes % Eosinophils % Basophils % Nucleated RBC % Absolute Neutrophils Absolute Lymphocytes Absolute Monocytes Absolute Eosinophils Absolute Basophils Sodium Potassium Chloride Carbon Dioxide Anion Gap BUN Creatinine Est GFR (CKD-EPI 2020) Glucose Calcium Magnesium Total Bilirubin AST ALT Alkaline Phosphatase Total Protein Albumin Urine Color Yellow Urine Clarity Clear Urine pH 8.5 H Ur Specific [place] 1.020 Urine Protein 30 H Urine Ketones Negative Urine Blood Negative Urine Nitrite Negative Urine Bilirubin Small H Urine Urobilinogen 2.0 H Ur Leukocyte Esterase Negative Urine RBC Negative Urine WBC Negative Ur Epithelial Cells Few Urine Crystals Negative Urine Bacteria Rare Urine Casts 0-2 Hyaline Urine Mucus Moderate Ur Culture Indicated? No Ur Random Creatinine 148.68 U Random Total Protein 41.0 U Baldwin Prot/Creat Ratio 0.27 Urine Glucose Negative Chlamydia DNA Probe Chlamydia/GC DNA Source N.gonorrhoeae DNA Probe Fibronectin ABO/Rh Antibody Screen 07/13/25 11:30 Vaginal/Rectal Group B Streptococcus Culture - Pending Preliminary micro results at discharge 07/13/25 11:30 Vaginal/Rectal Group B Streptococcus Culture - Pending
[2025-07-14 11:11] LABS: Chlamydia Result Negative (Negative); GC Result Negative (Negative)
[2025-08-24 21:32] VITALS: BP 144/78; PULSE 68; TEMP 36.7
== END 2025-07-13 16:30 | disposition other institution (70) ==
LOC: OBS 18:00
PROVIDERS: Admitting Provider Obstetrics & Gynecology; PCP Student in an Organized Health Care Education/Training Program; Visit Provider Obstetrics & Gynecology
DX: O10.913 Unspecified pre-existing hypertension complicating pregnancy, third trimester (principal); O99.323 Drug use complicating pregnancy, third trimester; F12.90 Cannabis use, unspecified, uncomplicated; O34.211 Maternal care for low transverse scar from previous cesarean delivery; O99.343 Other mental disorders complicating pregnancy, third trimester; N85.8 Other specified noninflammatory disorders of uterus; F41.9 Anxiety disorder, unspecified; O21.8 Other vomiting complicating pregnancy; Z3A.29 29 weeks gestation of pregnancy
CPT/HCPCS: 36415; 80053; 86850; 86900; 86901; 87491; 87591; 81003; 81015; 82565; 82731; 83735; 84156; 85025; 87081; G0378; J0702; J2405; J3475

== ENCOUNTER 2025-07-21 06:28 | Outpatient (CLI) | payer MEDICAID, SELFPAY ==
[2025-07-21 07:27] VITALS: BP 182/98; PULSE 69
[2025-07-21 07:30] VITALS: BP 182/98; PULSE 69; RESP 18; TEMP 36.9
[2025-07-21] MEDS: Ondansetron 4 MG/2 ML VIAL IM (07:30)
[2025-07-21 07:54] LABS: HCT 34.8 % (36.0-46.0); HGB 11.5 g/dL (11.2-15.7); MCH 29.9 pg (27.0-33.0); MCHC 33.0 % (32.0-36.0); MCV 91 fL (80-95); MPV 8.9 fL (8.0-11.0); Platelet Count 448 10^3/uL (130-400); RBC 3.84 10^6/uL (3.93-5.22); RDW 12.8 % (11.7-14.6); RDW-SD 42.5 fL; WBC 21.73 10^3/uL (4.4-10.8)
--- NOTE | 2025-07-21 08:00 | RT.EKG_ITS ---
APPROVED REPORT Exam: Resting ECG Reason for Exam: bradycardia Patient Location: O HR:51 bpm ECG Measurements Heart Rate 51 AXIS AR 192 P 23 QRSd 91 QRS 12 QT 438 T 24 QTc 405 Conclusion Sinus arrhythmia Normal Electrocardiogram
--- NOTE | 2025-07-21 08:01 | W.PM.HP.N ---
Date of service: 07/21/25 Time of Service: 08:01 Assessment and Plan Assessment and plan (1) Chronic hypertension: Status: Acute Assessment and plan: 30 yo (h/o x2) dated by 7 wk US (LEONEL 09/24/2025) - Rh+ / Rub I / VZV I / GBS neg (due for repeat 08/17/25) - Tdap / RSV / flu / COVID pending - Panorama low risk, female; SMA and CF neg - Contraception: planning BTL (Ensure Medicaid form signed - 07/06?) - plans pending - S/P one round BANNER 07/13 & 07/14 (29 weeks) - Last growth US 07/05/25 (29 wks): EFW 1386 g (74%tile), KEYANA 12.7, cephalic 1. Chronic Hypertension Hx pre-eclampsia x2; s/p 29 wk hospitalization for increasing pressures Baseline labs: ALT high (77) 02/23; but normalized MFM consult: growth scans @ 28, 32, & 36 wks, exercise, calcium rich diet Needs screening initiated 32 weeks Delivery planning 38th wk Medications: Labetalol 200 mg BID2. H/O x2 - Plans for repeat w/BTL Anterior placenta 3. Persistent nausea / vomiting in (2/2 MJ use?) Meds: B6 / Unisom / Zofran 4. Daily marijuana use (UDS persistently +THC) 5. H/O Bradycardia Cardiology consult 02/23:sinus bradycardia with occasional junctional escape, TTE normal, no acute intervention indicated Uncertain impact on delivery location??. Isolated intra-cardiac echogenic focus - - - - - - - - - - - - - - - 07/21/2025 at 8 am (Arron): 30-year-old -0-0-2 ( x 2) presents to labor and delivery at 30 weeks and 5 days as dated by 7-week ultrasound for headache with visual changes for the last 3 days as well as persistent nausea and vomiting. Patient states that headache has been coming and going and she describes, waves, in her vision. She denies loss of vision, tunneling, or scintillations. She reports having taken her labetalol twice a day but has not taken it this morning due to nausea. She was last able to eat last night (frozen pizza), and reports she was able to keep it down. She woke this morning with severe nausea and persistence of the headache. She reports good movement. She denies vaginal bleeding or contractions. She denies leakage of fluid. Concerning for possible developement of preE based on initial blood pressure (though this pressure was collected with the patient in folded positioning). Will repeat BP manually. Labs pending. EKG for results of cardiac auscaltation. Low threshold for transfer. 07/21/2025 at 8:45 am (Arron): EKG has returned with evidence of, premature atrial complexes. Patient denies chest pain or shortness of breath. Blood pressures remain elevated, albeit improved from initial and outside severe range. Prot:Cr ratio has returned elevated at 0.36. CMP still pending. Given headaches, visual changes, cardiac changes, and now elevated prot:Cr, I am strongly entertaining the idea of Magnesium therapy regardless of blood pressures; however, I want to ensure this will not induce further cardiac instability. Call placed to [facility] transfer center for consideration of transfer. 07/21/2025 at 9:35 am (Arron): Spoke with Dr. Jacik Hernandez by phone; we discussed the patient in detail. She is accepting of the patient. We discussed magnesium therapy and we came to the agreement it would be fitting. She suggested Compazine for the headache prn. Orders placed for magnesium therapy and discussion regarding transfer with the patient. 07/21/2025 at 10:00 am (Arron): Consented patient for transfer. Transfer papers completed. Discussed headache management with patient. She states it is still present. Offered Compazine; she reports success with IV Benadryl and Reglan historically and requests this instead. Ordered. - - - - - - - - - - - - - - [facility] All Active Problems (Updated 07/17/25 @ 10:11 by Miladys Heller, ) Chronic hypertension (Acute) Gestational hypertension (Acute) Nausea/vomiting in (Acute) Anxiety (Chronic) Chronic hypertension during (Acute) Elevated platelet count (Acute) Elevated liver enzymes (Acute) History of pre-eclampsia in prior , currently (Acute) Marijuana use during (Acute) History of delivery, currently (Acute) (Acute) Medical History Early stage of Bradycardia Depression 2018 . 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 herniation of nucleus pulposis vs residual scaring from previous disk surgery. Eval at [facility] [place] with MRI w/o contrast. Will need to f/u in pain clinic PP for eval of pain. delivery delivered 02/12/19. At term secondary to severe BP, H/A remote from delivery. Preeclampsia in period 11/05/2017. Treated with labetalol several weeks . 02/11/19. Presented in labor with elevated blood pressure. Rx MgSO4 and Labetalol PP. Bradycardia 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/2013) HR 40-60 BPM Surgical History Spinal L4and L5 repair S/P section Family History Mother Essential hypertension Hypothyroidism Mental disorder Anxiety and depression-Therapy and ? meds Father Substance abuse ?? 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 Date GA/Weeks # Preg Succ Route Wgt Sex Labor Lgth Anesthesia Location Prov Complic 11/05/17 37 No Yes vaginal 6 lb 5 oz Male 2 hrs [facility], [facility] 02/12/19 36 No Yes 5 lb 2 oz Female regional [facility], Dr. Cintron Delivery Date: 11/05/17 Last Updated by: Izabella Smith Precip'ed, RN delivered, [place], labetalol for a couple of months Delivery Date: 02/12/19 Last Updated by: Izabella Smith Severe range BP, no response to IV meds, no labor, went to [facility] Labetalol for 6 months. Meds Allergies and Home Medications Allergies Allergy/AdvReac Type Severity Reaction Status Date / Time meperidine HCl (From Demerol) Allergy Intermediate Swelling/Ed Unverified 07/18/25 12:39 chaim Home Medications ?Medication ?Instructions ?Recorded ?Confirmed ?Type metoclopramide HCl 10 mg tablet 10 mg PO Q6H PRN nausea and 02/17/25 07/18/25 Rx (Reglan) vomiting #60 tabs promethazine 25 mg rectal 25 mg NV Q6H PRN nausea and 02/17/25 07/18/25 Rx suppository vomiting 30 days #24 supp aspirin 81 mg tablet,delayed 162 mg (2 x 81 mg) PO DAILY #60 03/02/25 07/18/25 Rx release tabs vitamins with calcium 1 tab PO DAILY #90 tabs 03/02/25 07/18/25 Rx no.72-iron 27 mg-folic acid 1 mg tablet ( Vitamins Plus Low Iron) ondansetron 8 mg disintegrating 8 mg PO Q8H 30 days #90 tabs 04/25/25 07/18/25 Rx tablet bupropion HCl 150 mg 24 hr tablet, 150 mg PO QAM #30 tabs 06/22/25 07/18/25 Rx extended release (Wellbutrin XL) fluoxetine 20 mg capsule 20 mg PO DAILY #30 caps 06/22/25 07/18/25 Rx flu vac ts 2024-(6mos up)-PF 45 0.5 ml IM ONCE #0.5 mL 07/13/25 Clinic mcg(15mcg x3)/0.5 mL IM syringe labetalol 200 mg tablet 200 mg PO BID 07/18/25 07/18/25 History Exam Narrative Exam Narrative: general: Patient folded over in her bed holding her head in her pillow covering her eyes HEENT: No palpable lymph nodes; pupils appropriate card: Slow rythm; possible rare skipped beats? vs physiologic slowing with exhalation pulm: No overt respiratory distress; mild wheeze noted across lung martinez abd: soft, non-tender, gravid Ext: 1+ / 4 patellar reflexes; no swelling FHT: Cat 1 [place]: Quiet Results Labs 07/21/25 07:48 07/21/25 08:28 Labs: Laboratory Results - last 24 hr 07/21/25 07:48 WBC 21.73 H RBC 3.84 L Hgb 11.5 Hct 34.8 L MCV 91 MCH 29.9 MCHC 33.0 RDW 12.8 Plt Count 448 H MPV 8.9 Last Vital Signs Pulse 69 07/21/25 07:27 BP 182/98 H 07/21/25 07:27 Time Spent Time spent with Patient: 40-54 minutes Time was spent: preparing to see the patient(eg.review tests), obtaining and/or reviewing separately otained hiistory, ordering medications,tests, procedures and referring, communicating with other health care worker
[2025-07-21 08:05] VITALS: BP 148/86
[2025-07-21 08:12] LABS: PROTEIN 15.3 mg/dL; Prot/Crea Ur Ratio 0.36
[2025-07-21 09:05] LABS: ALT 26 U/L (14-59); AST 14 U/L (15-37); Albumin 2.6 g/dL (3.4-5.0); Alkaline Phosphatase 116 U/L (46-116); Anion Gap 8.0 mmol/L (3-11); BUN 5 mg/dL (7-18); Bilirubin, Total 0.3 mg/dL (0.2-1.0); CO2 28.0 mmol/L (21.0-32.0); Calcium 8.7 mg/dL (8.5-10.1); Chloride 102 mmol/L (98-107); Estimated GFR 137.31 (mL/min/1.73m2); Glucose 92 mg/dL (74-106); Magnesium 1.5 mg/dL (1.8-2.4); Potassium 3.7 mmol/L (3.5-5.1); Sodium 138 mmol/L (136-145); Total Protein 6.3 g/dL (6.4-8.2)
[2025-07-21] MEDS: MAGNESIUM SULFATE 20 GM/500 ML BAG IV_INF (10:22)
[2025-07-21] MEDS: diphenhydrAMINE 50 MG/ML VIAL 25 MG IVP (10:26)
[2025-07-21 10:30] VITALS: BP 148/86; PULSE 69; RESP 18; TEMP 36.7
[2025-07-21 11:05] VITALS: TEMP 36.6
[2025-07-21] MEDS: Metoclopramide 10 MG/2 ML VIAL IVP (11:05)
[2025-07-21 11:10] VITALS: BP 148/86; PULSE 69
== END 2025-07-21 11:30 ==
LOC: BCD 06:30 → OBS 07:14
PROVIDERS: Obstetrics & Gynecology; PCP Student in an Organized Health Care Education/Training Program; Visit Provider Obstetrics & Gynecology
DX: O13.3 Gestational [pregnancy-induced] hypertension without significant proteinuria, third trimester (principal); Z3A.30 30 weeks gestation of pregnancy; O99.891 Other specified diseases and conditions complicating pregnancy; R11.2 Nausea with vomiting, unspecified
CPT/HCPCS: 36415; 80053; 85027; 59025; 82565; 83735; 84100; 84156; 93005; 93010; G0378; J1200; J2405; J2765; J3475

== ENCOUNTER 2025-07-24 11:00 | Outpatient (CLI) | payer MEDICAID, SELFPAY ==
[2025-07-24 11:06] VITALS: BP 132/81; PULSE 72; TEMP 36.6
--- NOTE | 2025-07-24 16:56 | W.OBNST ---
Date of service: 07/24/25 Time of Service: 11:00 NST Evaluation Reason for NST Reasons for Nonstress Test: CHRONIC HYPERTENSION Gestational Age Gestational Age in Weeks and Days: 31 Weeks and 1Days Test and Monitor Explained Test/Monitor Explained: Test Explained, Monitor Explained and Patient Verbalized Understanding Vital Signs Blood Pressure: 132/81 Pulse: 72 Temperature: 97.9 F NST Information Date on Monitor: 07/24/25 Time on Monitor: 10:43 Date off Monitor: 07/24/25 Time off Monitor: 11:33 Total Time on Monitor: 50 NST Interventions: PO Hydration Contraction Frequency: 0 NST Evaluation Patient States Movement: Present FHR Baseline: 150 Variability: Moderate 6-25 bpm Accelerations: 10x10 Decelerations: None NST Results: Reactive Note Ultrasound Done: N/A. NST Note Note: Pt here for NST after d/c from [facility] yesterday with dx of CHTN exacerbation, normal 24hr urine, improved headache. Today she says she had a mild headache that improved with tylenol, Minimal nausea. No other concerns. She has repeat NST in 3days. NST Reviewed and Verified by: Crissy Carty
[2025-07-24 16:58] VITALS: BP 132/81; PULSE 72; TEMP 36.6
== END 2025-07-24 11:40 ==
LOC: BCD 11:01 → OBS 11:04
PROVIDERS: PCP Student in an Organized Health Care Education/Training Program; Visit Provider Obstetrics & Gynecology
DX: O13.3 Gestational [pregnancy-induced] hypertension without significant proteinuria, third trimester (principal); Z3A.31 31 weeks gestation of pregnancy
CPT/HCPCS: 59025

== ENCOUNTER 2025-07-27 08:27 | Outpatient (CLI) | payer MEDICAID, SELFPAY ==
[2025-07-27 10:52] VITALS: BP 144/82; PULSE 67; TEMP 36.8
--- NOTE | 2025-07-27 11:16 | W.OBNST ---
Date of service: 07/27/25 Time of Service: 17:00 NST Evaluation Reason for NST Reasons for Nonstress Test: GESTATIONAL HYPERTENSION Gestational Age Gestational Age in Weeks and Days: 36 Weeks and 2Days Test and Monitor Explained Test/Monitor Explained: Test Explained, Monitor Explained and Patient Verbalized Understanding Urine Results Urine Protein: Negative Urine Ketones: Negative Urine Glucose: Negative Urine Blood: Negative NST Information Date on Monitor: 07/27/25 Time on Monitor: 10:36 Date off Monitor: 07/27/25 Time off Monitor: 11:54 Total Time on Monitor: 78 NST Interventions: PO Hydration Contraction Frequency: not raquel NST Evaluation Patient States Movement: Present FHR Baseline: 145 Variability: Moderate 6-25 bpm Accelerations: 15x15 Decelerations: None NST Results: Reactive Note Ultrasound Done: N/A. NST Note NST Reviewed and Verified by: Miladys Heller
[2025-07-27 11:48] LABS: HCT 33.7 % (36.0-46.0); HGB 11.5 g/dL (11.2-15.7); MCH 30.7 pg (27.0-33.0); MCHC 34.1 % (32.0-36.0); MCV 90 fL (80-95); MPV 9.0 fL (8.0-11.0); Platelet Count 408 10^3/uL (130-400); RBC 3.75 10^6/uL (3.93-5.22); RDW 12.6 % (11.7-14.6); RDW-SD 40.9 fL; WBC 16.81 10^3/uL (4.4-10.8)
[2025-07-27 12:03] VITALS: BP 143/82; PULSE 75
[2025-07-27 12:03] LABS: ALT 23 U/L (14-59); AST 17 U/L (15-37); Albumin 2.6 g/dL (3.4-5.0); Alkaline Phosphatase 113 U/L (46-116); Anion Gap 10.9 mmol/L (3-11); BUN 5 mg/dL (7-18); Bilirubin, Total 0.3 mg/dL (0.2-1.0); CO2 22.1 mmol/L (21.0-32.0); Calcium 8.6 mg/dL (8.5-10.1); Chloride 101 mmol/L (98-107); Estimated GFR 130.12 (mL/min/1.73m2); Glucose 122 mg/dL (74-106); Potassium 3.4 mmol/L (3.5-5.1); Sodium 134 mmol/L (136-145); Total Protein 6.4 g/dL (6.4-8.2)
[2025-07-27] MEDS: Acetaminophen 325 MG TAB 650 MG PO (12:39)
[2025-07-27 12:42] LABS: Glucose Negative (Negative)
[2025-07-27 12:49] LABS: PROTEIN < 6.0 mg/dL
--- NOTE | 2025-07-27 13:31 | W.OBNST ---
Date of service: 07/27/25 Time of Service: 13:32 NST Evaluation Reason for NST Reasons for Nonstress Test: GESTATIONAL HYPERTENSION Gestational Age Gestational Age in Weeks and Days: 31 Weeks and 4Days Test and Monitor Explained Test/Monitor Explained: Test Explained, Monitor Explained and Patient Verbalized Understanding Urine Results Urine Protein: Negative Urine Ketones: Negative Urine Glucose: Negative Urine Blood: Negative NST Information Time on Monitor: 10:36 Date off Monitor: 07/27/25 Time off Monitor: 11:54 NST Interventions: PO Hydration Contraction Frequency: not raquel NST Evaluation Patient States Movement: Present FHR Baseline: 145 Variability: Moderate 6-25 bpm Accelerations: 15x15 Decelerations: None NST Results: Reactive Note Ultrasound Done: N/A. NST Note Note: Patient presents for headache; she is found resting upright in her bed without immediate evidence of duress. She responded well to hydration, Tylenol, and Reglan. No further issues, today. NST Reviewed and Verified by: Miladys Heller
== END 2025-07-27 13:30 ==
LOC: BCD 08:27 → OBS 10:19
PROVIDERS: PCP Student in an Organized Health Care Education/Training Program; Visit Provider Obstetrics & Gynecology
DX: O13.1 Gestational [pregnancy-induced] hypertension without significant proteinuria, first trimester (principal); Z3A.31 31 weeks gestation of pregnancy; R51.9 Headache, unspecified
CPT/HCPCS: 36415; 80053; 85027; 59025; 81003; 82565; 84156

== ENCOUNTER 2025-08-02 08:34 | Outpatient (CLI) | payer MEDICAID, SELFPAY ==
[2025-08-02 09:10] VITALS: BP 116/83; PULSE 83; TEMP 36.5
--- NOTE | 2025-08-02 09:26 | PDOC.NST_ITS ---
Date of service: 08/02/25 Time of Service: 09:26 NST Evaluation Reason for NST Reasons for Nonstress Test: GESTATIONAL HYPERTENSION Reason for NST Other: Vaginal Bleeding Gestational Age Gestational Age in Weeks and Days: 32 Weeks and 3Days Test and Monitor Explained Test/Monitor Explained: Test Explained, Monitor Explained and Patient Verbalized Understanding Vital Signs Blood Pressure: 116/83 Pulse: 83 Temperature: 97.7 F Urine Results Urine Protein: Negative Urine Ketones: Negative Urine Glucose: Negative Urine Blood: Positive NST Information Date on Monitor: 08/02/25 Time on Monitor: 08:45 Date off Monitor: 08/02/25 Time off Monitor: 09:08 Total Time on Monitor: 23 NST Interventions: PO Hydration and Notify Provider Contraction Frequency: 0 NST Evaluation Patient States Movement: Present FHR Baseline: 145 Variability: Moderate 6-25 bpm Accelerations: 15x15 Decelerations: None NST Results: Reactive Note Ultrasound Done: N/A. NST Note Note: Patient was seen formerly [facility] for additional NST today. She is scheduled for twice weekly NSTs which her next one will be on 08/03/2025. She called this morning with onset of a small amount of bright red vaginal bleeding. She reports some lower abdominal crampiness. She had a category 1, reactive nonstress test today with no uterine activity. Sterile speculum examination was performed for inspection of the vaginal vault and cervix. There is no blood identified. Cervical exam reveals cervix that is closed, thick, soft, but posterior. Her blood pressure today is stable. She is on amlodipine, 10 mg twice daily. She has been seen at [facility] on numerous different occasions. She has no signs or symptoms of preeclampsia today. No laboratory studies were ordered. We discussed the fact that the hope is to get her to 38 weeks for delivery unless she develops preeclampsia with severe features or other complexities of her . Encouragement was given. Kick counts were discussed. Warning signs given. All questions were answered. NST Reviewed and Verified by: Jacquie Ordonez
[2025-08-02 09:28] VITALS: BP 116/83; PULSE 83; TEMP 36.5
== END 2025-08-02 09:25 ==
LOC: BCD 08:34 → OBS 08:48
PROVIDERS: PCP Student in an Organized Health Care Education/Training Program; Visit Provider Obstetrics & Gynecology
DX: O13.3 Gestational [pregnancy-induced] hypertension without significant proteinuria, third trimester (principal); O26.853 Spotting complicating pregnancy, third trimester; Z3A.34 34 weeks gestation of pregnancy
CPT/HCPCS: 59025

== ENCOUNTER 2025-08-03 07:51 | Outpatient (CLI) | payer MEDICAID, SELFPAY ==
[2025-08-03] VITALS (41 sets, daily range): BP systolic 133; BP diastolic 79; PULSE 72–100; TEMP 36.8; O2SAT 95–99
[2025-08-03 13:28] LABS: HCT 31.0 % (36.0-46.0); HGB 10.7 g/dL (11.2-15.7); MCH 30.7 pg (27.0-33.0); MCHC 34.5 % (32.0-36.0); MCV 89 fL (80-95); MPV 9.0 fL (8.0-11.0); Platelet Count 403 10^3/uL (130-400); RBC 3.49 10^6/uL (3.93-5.22); RDW 12.7 % (11.7-14.6); RDW-SD 40.8 fL; WBC 17.73 10^3/uL (4.4-10.8)
[2025-08-03 13:51] LABS: ALT 20 U/L (14-59); AST 18 U/L (15-37); Albumin 2.6 g/dL (3.4-5.0); Alkaline Phosphatase 106 U/L (46-116); Anion Gap 11.5 mmol/L (3-11); BUN 7 mg/dL (7-18); Bilirubin, Total 0.4 mg/dL (0.2-1.0); CO2 24.5 mmol/L (21.0-32.0); Calcium 8.6 mg/dL (8.5-10.1); Chloride 100 mmol/L (98-107); Estimated GFR 137.31 (mL/min/1.73m2); Glucose 100 mg/dL (74-106); Potassium 3.3 mmol/L (3.5-5.1); Sodium 136 mmol/L (136-145); Total Protein 6.4 g/dL (6.4-8.2)
--- NOTE | 2025-08-03 14:04 | W.OBNST ---
Date of service: 08/03/25 Time of Service: 14:04 NST Evaluation Reason for NST Reasons for Nonstress Test: GESTATIONAL HYPERTENSION Gestational Age Gestational Age in Weeks and Days: 34 Weeks and 1Days Test and Monitor Explained Test/Monitor Explained: Test Explained and Monitor Explained Vital Signs Blood Pressure: 133/79 Pulse: 81 Temperature: 98.2 F Weight: 164 lb Urine Results Urine Protein: Negative Urine Ketones: Negative Urine Glucose: Negative Urine Blood: Negative NST Information Date on Monitor: 08/03/25 Time on Monitor: 11:15 Date off Monitor: 08/03/25 Time off Monitor: 13:24 Total Time on Monitor: 129 NST Interventions: PO Hydration NST Evaluation Patient States Movement: Present FHR Baseline: 125 Variability: Moderate 6-25 bpm Accelerations: 15x15 Decelerations: None NST Results: Reactive Note Ultrasound Done: N/A. NST Note Note: Patient seen in the office for nonstress testing. Overall she has been doing well. Blood pressure remained stable. She has had no significant nausea. During the course of her surveillance, with a heart rate baseline of 125, she had appropriate accelerations. While laying flat on her back she did have a deceleration of the heart rate for approximately 2 minutes with appropriate return to baseline with no interventions. She was monitored for a prolonged period of time. She had laboratory studies including CBC and CMP both of which are normal. Urine protein creatinine ratio is pending. Her blood pressure is stable. Precautions were given. She will continue twice-weekly nonstress testing. Kick counts were discussed. She will follow-up as scheduled. NST Reviewed and Verified by: Jacquie Ordonez
[2025-08-03 14:15] LABS: PROTEIN 8.3 mg/dL; Prot/Crea Ur Ratio 0.24
== END 2025-08-03 14:00 ==
LOC: BCD 07:58 → OBS 11:07
PROVIDERS: PCP Student in an Organized Health Care Education/Training Program; Visit Provider Obstetrics & Gynecology
DX: O13.3 Gestational [pregnancy-induced] hypertension without significant proteinuria, third trimester (principal); Z3A.34 34 weeks gestation of pregnancy
CPT/HCPCS: 80053; 85027; 59025; 82565; 84156

== ENCOUNTER 2025-08-07 07:06 | Outpatient (CLI) | payer MEDICAID, SELFPAY ==
[2025-08-07 08:56] VITALS: BP 133/77; PULSE 95
[2025-08-07 09:05] VITALS: BP 133/77; PULSE 95; TEMP 36.6
[2025-08-07 17:49] VITALS: BP 133/77; PULSE 95; TEMP 36.6
--- NOTE | 2025-08-07 17:49 | W.OBNST ---
Date of service: 08/07/25 Time of Service: 09:00 NST Evaluation Reason for NST Reasons for Nonstress Test: GESTATIONAL HYPERTENSION Gestational Age Gestational Age in Weeks and Days: 36 Weeks and 2Days Test and Monitor Explained Test/Monitor Explained: Test Explained, Monitor Explained and Patient Verbalized Understanding Vital Signs Blood Pressure: 133/77 Pulse: 95 Temperature: 97.9 F NST Information Date on Monitor: 08/07/25 Time on Monitor: 08:55 Date off Monitor: 08/07/25 Time off Monitor: 09:25 Total Time on Monitor: 30 NST Interventions: PO Hydration Contraction Frequency: 0 NST Evaluation Patient States Movement: Present FHR Baseline: 150 Variability: Moderate 6-25 bpm Accelerations: 15x15 Decelerations: None NST Results: Reactive Note Ultrasound Done: N/A. NST Note NST Reviewed and Verified by: Crissy Carty
== END 2025-08-07 09:29 ==
LOC: BCD 07:07 → OBS 08:43
PROVIDERS: PCP Student in an Organized Health Care Education/Training Program; Visit Provider Obstetrics & Gynecology
DX: O13.3 Gestational [pregnancy-induced] hypertension without significant proteinuria, third trimester (principal); Z3A.36 36 weeks gestation of pregnancy
CPT/HCPCS: 59025

== ENCOUNTER 2025-08-10 07:45 | Outpatient (CLI) | payer MEDICAID, SELFPAY ==
[2025-08-10 10:47] VITALS: BP 136/82; PULSE 81
[2025-08-10 10:56] VITALS: BP 136/82; PULSE 81; TEMP 36.7
[2025-08-10 17:28] VITALS: BP 136/82; PULSE 81; TEMP 36.7
--- NOTE | 2025-08-10 17:28 | W.OBNST ---
Date of service: 08/10/25 Time of Service: 17:28 NST Evaluation Reason for NST Reasons for Nonstress Test: CHRONIC HYPERTENSION Gestational Age Gestational Age in Weeks and Days: 33 Weeks and 4Days Test and Monitor Explained Test/Monitor Explained: Test Explained Vital Signs Blood Pressure: 136/82 Pulse: 81 Temperature: 98.1 F Urine Results Urine Protein: Negative Urine Ketones: Negative Urine Glucose: Negative Urine Blood: Negative NST Information Date on Monitor: 08/10/25 Time on Monitor: 10:40 Date off Monitor: 08/10/25 Time off Monitor: 11:10 Total Time on Monitor: 30 NST Interventions: PO Hydration NST Evaluation Patient States Movement: Present FHR Baseline: 145 Variability: Moderate 6-25 bpm Accelerations: 15x15 Decelerations: None NST Results: Reactive Note Ultrasound Done: N/A. NST Note NST Reviewed and Verified by: Miladys Heller
== END 2025-08-10 11:10 ==
LOC: BCD 07:46 → OBS 10:35
PROVIDERS: PCP Student in an Organized Health Care Education/Training Program; Visit Provider Obstetrics & Gynecology
DX: O13.3 Gestational [pregnancy-induced] hypertension without significant proteinuria, third trimester (principal); Z3A.33 33 weeks gestation of pregnancy
CPT/HCPCS: 59025

== ENCOUNTER 2025-08-14 07:37 | Outpatient (CLI) | payer MEDICAID, SELFPAY ==
[2025-08-14 09:59] VITALS: BP 136/84; PULSE 96; TEMP 36.4
[2025-08-14 10:01] VITALS: BP 136/84; PULSE 96; RESP 14; TEMP 36.4
--- NOTE | 2025-08-14 18:27 | W.OBNST ---
Date of service: 08/14/25 Time of Service: 10:30 NST Evaluation Reason for NST Reasons for Nonstress Test: GESTATIONAL HYPERTENSION Gestational Age Gestational Age in Weeks and Days: 35 Weeks and 5Days Test and Monitor Explained Test/Monitor Explained: Patient Verbalized Understanding Vital Signs Blood Pressure: 136/84 Pulse: 96 Temperature: 97.5 F Weight: 170 lb Urine Results Urine Protein: Negative Urine Ketones: Negative Urine Glucose: Negative Urine Blood: Negative NST Information Date on Monitor: 08/14/25 Time on Monitor: 10:00 Date off Monitor: 08/14/25 Time off Monitor: 10:34 Total Time on Monitor: 34 NST Interventions: PO Hydration NST Evaluation Patient States Movement: Present FHR Baseline: 140 Variability: Moderate 6-25 bpm Accelerations: 15x15 Decelerations: None NST Results: Reactive Note Ultrasound Done: N/A. NST Note NST Reviewed and Verified by: Crissy Carty
[2025-08-14 18:28] VITALS: BP 136/84; PULSE 96; TEMP 36.4
== END 2025-08-14 10:40 ==
LOC: BCD 07:46 → OBS 09:54
PROVIDERS: PCP Student in an Organized Health Care Education/Training Program; Visit Provider Obstetrics & Gynecology
DX: O13.3 Gestational [pregnancy-induced] hypertension without significant proteinuria, third trimester (principal); Z3A.35 35 weeks gestation of pregnancy
CPT/HCPCS: 59025

== ENCOUNTER → 2025-08-16 02:29 | Outpatient (CLI) | payer MEDICAID, SELFPAY ==
--- NOTE | 2025-08-16 11:50 | DI.US_ITS ---
Exam(s) US OB KEYANA WEIGHT EXAM: US OB KEYANA WEIGHT CLINICAL HISTORY: chronic hypertension in ,i10. TECHNIQUE: Transabdominal obstetrical ultrasound was performed. COMPARISON: US US OB KEYANA WEIGHT from 07/05/2025 FINDINGS: There is a single viable intrauterine gestation with cardiac activity identified-148 bpm The fetus is presently in cephalic position . Amniotic fluid: There is a normal amount of amniotic fluid with an KEYANA of 14.5cm. Placental location: The placenta is anterior grade 2,with no evidence of placenta previa.Distance from tip of placenta to the internal localizes greater than [address] this at approximately 34 weeks and 6 days gestational age, implying LEONEL of September 21, 2025. BPD measures 35 weeks and 4 days HC measures 35 weeks and 1 day AC measures 34 weeks and 0 days FL measures 34 weeks and 5 days Estimated weight is 2440 gm-pound 6 ounces Fetus is at the 46th percentile on the Hadlock scale. IMPRESSION:: Viable 3rd trimester gestation, as described above. DATA REPOSITORY:
== END ==
LOC: DI 02:29
PROVIDERS: PCP Student in an Organized Health Care Education/Training Program; Visit Provider Obstetrics & Gynecology
DX: I10 Essential (primary) hypertension (principal)
CPT/HCPCS: 76816

== ENCOUNTER 2025-08-17 07:08 | Outpatient (CLI) | payer MEDICAID, SELFPAY ==
[2025-08-17 09:04] VITALS: BP 135/76; PULSE 95; TEMP 36.9
[2025-08-17 09:07] VITALS: BP 135/76; PULSE 95
[2025-08-17 15:06] VITALS: BP 135/76; PULSE 95; TEMP 36.9
--- NOTE | 2025-08-17 15:06 | W.OBNST ---
Date of service: 08/17/25 Time of Service: 09:00 NST Evaluation Reason for NST Reasons for Nonstress Test: GESTATIONAL HYPERTENSION Gestational Age Gestational Age in Weeks and Days: 36 Weeks and 1Days Test and Monitor Explained Test/Monitor Explained: Test Explained Vital Signs Blood Pressure: 135/76 Pulse: 95 Temperature: 98.4 F Weight: 167 lb Urine Results Urine Protein: Negative Urine Ketones: Negative Urine Glucose: Negative Urine Blood: Negative NST Information Date on Monitor: 08/17/25 Time on Monitor: 08:50 Date off Monitor: 08/17/25 Time off Monitor: 09:15 Total Time on Monitor: 25 NST Interventions: None NST Evaluation Patient States Movement: Present FHR Baseline: 140 Variability: Moderate 6-25 bpm Accelerations: 15x15 Decelerations: None NST Results: Reactive Note Ultrasound Done: N/A. NST Note NST Reviewed and Verified by: Crissy Carty
== END 2025-08-17 09:41 | disposition home health service (06) ==
LOC: BCD 07:08 → OBS 08:54
PROVIDERS: PCP Student in an Organized Health Care Education/Training Program; Visit Provider Obstetrics & Gynecology
DX: O13.3 Gestational [pregnancy-induced] hypertension without significant proteinuria, third trimester (principal); Z3A.36 36 weeks gestation of pregnancy
CPT/HCPCS: 59025

== ENCOUNTER 2025-08-21 07:49 | Outpatient (CLI) | payer MEDICAID, SELFPAY ==
[2025-08-21 09:41] VITALS: BP 132/84; PULSE 89
[2025-08-21 09:46] VITALS: BP 132/84; PULSE 89; TEMP 36.5
== END 2025-08-21 10:20 | disposition home health service (06) ==
LOC: BCD 07:50 → OBS 09:27
PROVIDERS: PCP Student in an Organized Health Care Education/Training Program; Visit Provider Obstetrics & Gynecology
DX: O13.3 Gestational [pregnancy-induced] hypertension without significant proteinuria, third trimester (principal); Z3A.35 35 weeks gestation of pregnancy
CPT/HCPCS: 59025

== ENCOUNTER 2025-08-24 07:54 | Outpatient (CLI) | payer MEDICAID, SELFPAY ==
[2025-08-24 09:08] VITALS: BP 131/79; PULSE 72
[2025-08-24 09:18] VITALS: BP 131/81; PULSE 72
[2025-08-24 09:28] VITALS: BP 139/77; PULSE 68; TEMP 36.7
--- NOTE | 2025-08-24 15:12 | W.OBNST ---
Date of service: 08/24/25 Time of Service: 15:12 NST Evaluation Reason for NST Reasons for Nonstress Test: GESTATIONAL HYPERTENSION Gestational Age Gestational Age in Weeks and Days: 35 Weeks and 4Days Test and Monitor Explained Test/Monitor Explained: Test Explained, Monitor Explained and Patient Verbalized Understanding NST Information Date on Monitor: 08/24/25 Time on Monitor: 08:57 Date off Monitor: 08/24/25 Time off Monitor: 09:38 Total Time on Monitor: 41 NST Interventions: PO Hydration NST Evaluation Patient States Movement: Present FHR Baseline: 130 Variability: Moderate 6-25 bpm Accelerations: 15x15 Decelerations: None NST Results: Reactive Note Ultrasound Done: N/A. NST Note Note: Category 1, reactive NST. Stable blood pressure. NST Reviewed and Verified by: Jacquie Ordonez
== END 2025-08-24 10:03 ==
LOC: BCD 08:47 → OBS 08:54
PROVIDERS: PCP Student in an Organized Health Care Education/Training Program; Visit Provider Obstetrics & Gynecology
DX: O13.3 Gestational [pregnancy-induced] hypertension without significant proteinuria, third trimester (principal); Z3A.34 34 weeks gestation of pregnancy
CPT/HCPCS: 59025; 87081

== ENCOUNTER 2025-08-28 07:38 | Outpatient (CLI) | payer MEDICAID, SELFPAY ==
[2025-08-28 09:12] VITALS: BP 145/85; PULSE 82
[2025-08-28 09:30] VITALS: BP 145/85; PULSE 82; TEMP 36.7
[2025-08-28 17:19] VITALS: BP 145/85; PULSE 82; TEMP 36.7
--- NOTE | 2025-08-28 17:19 | W.OBNST ---
Date of service: 08/28/25 Time of Service: 09:00 NST Evaluation Reason for NST Reasons for Nonstress Test: GDM-DIET CONTROLLED and GESTATIONAL HYPERTENSION Gestational Age Gestational Age in Weeks and Days: 36 Weeks and 1Days Test and Monitor Explained Test/Monitor Explained: Test Explained and Monitor Explained Vital Signs Blood Pressure: 145/85 Pulse: 82 Temperature: 98.1 F Urine Results Urine Protein: Positive Urine Ketones: Negative Urine Glucose: Negative Urine Blood: Negative NST Information Date on Monitor: 08/28/25 Time on Monitor: 09:00 Date off Monitor: 08/28/25 Time off Monitor: 09:30 Total Time on Monitor: 30 NST Interventions: None NST Evaluation Patient States Movement: Present FHR Baseline: 135 Variability: Moderate 6-25 bpm Accelerations: 15x15 Decelerations: None NST Results: Reactive Note Ultrasound Done: N/A. NST Note NST Reviewed and Verified by: Crissy Carty
== END 2025-08-28 09:45 ==
LOC: BCD 07:38 → OBS 08:01
PROVIDERS: PCP Student in an Organized Health Care Education/Training Program; Visit Provider Obstetrics & Gynecology
DX: O24.410 Gestational diabetes mellitus in pregnancy, diet controlled (principal); O14.03 Mild to moderate pre-eclampsia, third trimester; Z3A.36 36 weeks gestation of pregnancy
CPT/HCPCS: 59025; 87081

== ENCOUNTER 2025-08-30 10:23 | Outpatient (CLI) | payer MEDICAID, SELFPAY ==
[2025-08-30 11:07] VITALS: BP 139/75; PULSE 83; TEMP 36.8
--- NOTE | 2025-08-30 12:07 | W.OBNST ---
Date of service: 08/30/25 Time of Service: 12:07 NST Evaluation Reason for NST Reasons for Nonstress Test: OTHER, SEE COMMENT Reason for NST Other: rule out labor Gestational Age Gestational Age in Weeks and Days: 36 Weeks and 4Days Test and Monitor Explained Test/Monitor Explained: Test Explained, Monitor Explained and Patient Verbalized Understanding Vital Signs Blood Pressure: 139/75 Pulse: 83 Temperature: 98.2 F NST Information Date on Monitor: 08/30/25 Time on Monitor: 11:00 Date off Monitor: 08/30/25 Time off Monitor: Total Time on Monitor: 22 NST Interventions: PO Hydration Contraction Frequency: 1 NST Evaluation Patient States Movement: Present FHR Baseline: 145 Variability: Moderate 6-25 bpm Accelerations: 15x15 Decelerations: None NST Results: Reactive Note Ultrasound Done: N/A. NST Note Note: Patient seen on the center for evaluation of contractions. She is having irregular contractions with no cervical change. Cervix is 50%, posterior, closed. vertex is low. Blood pressure is stable. She will continue on surveillance. when laboring, or as scheduled. NST Reviewed and Verified by: Jacquie Ordonez
[2025-08-30 12:08] VITALS: BP 139/75; PULSE 83; TEMP 36.8
== END 2025-08-30 11:43 ==
LOC: BCD 10:23 → OBS 11:03
PROVIDERS: PCP Student in an Organized Health Care Education/Training Program; Visit Provider Obstetrics & Gynecology
DX: O47.03 False labor before 37 completed weeks of gestation, third trimester (principal); Z3A.36 36 weeks gestation of pregnancy
CPT/HCPCS: 59025

== ENCOUNTER 2025-09-04 07:41 | Outpatient (CLI) | payer MEDICAID, SELFPAY ==
[2025-09-04 09:24] VITALS: BP 138/67; PULSE 75; TEMP 36.9
[2025-09-04 09:28] VITALS: BP 138/67; PULSE 75
[2025-09-04 18:20] VITALS: BP 138/67; PULSE 75; TEMP 36.9
--- NOTE | 2025-09-04 18:20 | W.OBNST ---
Date of service: 09/04/25 Time of Service: 10:00 NST Evaluation Reason for NST Reasons for Nonstress Test: CHRONIC HYPERTENSION Gestational Age Gestational Age in Weeks and Days: 37 Weeks and 2Days Test and Monitor Explained Test/Monitor Explained: Test Explained, Monitor Explained and Patient Verbalized Understanding Vital Signs Blood Pressure: 138/67 Pulse: 75 Temperature: 98.4 F Urine Results Urine Protein: Negative Urine Ketones: Negative Urine Glucose: Negative Urine Blood: Negative NST Information Date on Monitor: 09/04/25 Time on Monitor: 09:26 Date off Monitor: 09/04/25 Time off Monitor: 09:49 Total Time on Monitor: 23 NST Interventions: PO Hydration Contraction Frequency: 9 minutes, irregular NST Evaluation Patient States Movement: Present FHR Baseline: 140 Variability: Moderate 6-25 bpm Accelerations: 15x15 Decelerations: None NST Results: Reactive Note Ultrasound Done: N/A. NST Note NST Reviewed and Verified by: Crissy Carty
== END 2025-09-04 10:10 ==
LOC: BCD 07:41 → OBS 09:23
PROVIDERS: PCP Student in an Organized Health Care Education/Training Program; Visit Provider Obstetrics & Gynecology
DX: O13.3 Gestational [pregnancy-induced] hypertension without significant proteinuria, third trimester (principal); Z3A.37 37 weeks gestation of pregnancy
CPT/HCPCS: 59025

== ENCOUNTER 2025-09-05 12:21 | Outpatient (CLI) | payer MEDICAID, SELFPAY ==
[2025-09-05 12:35] VITALS: BP 146/87; PULSE 82; TEMP 36.7
[2025-09-05] MEDS: Normal Saline 1,000 ML 1000 ML IV (13:05)
[2025-09-05] MEDS: Ondansetron 4 MG/2 ML VIAL IVP (13:06)
[2025-09-05 13:27] LABS: Abs Immature Grans 0.29 10^3/uL (0.0-0.06); HCT 34.0 % (36.0-46.0); HGB 11.4 g/dL (11.2-15.7); Immature Grans % 1.6 %; MCH 29.6 pg (27.0-33.0); MCHC 33.5 % (32.0-36.0); MCV 88 fL (80-95); MPV 9.2 fL (8.0-11.0); Platelet Count 383 10^3/uL (130-400); RBC 3.85 10^6/uL (3.93-5.22); RDW 12.8 % (11.7-14.6); RDW-SD 41.1 fL; WBC 18.24 10^3/uL (4.4-10.8)
[2025-09-05 13:46] VITALS: BP 144/98; PULSE 83
[2025-09-05 13:48] LABS: ALT 10 U/L (10-49); AST 16 U/L (<34); Albumin 3.6 g/dL (3.2-5.0); Alkaline Phosphatase 150 U/L (46-116); Anion Gap 11.3 mmol/L (3-11); BUN 10 mg/dL (9-23); Bilirubin, Total 0.50 mg/dL (0.2-1.2); CO2 22.7 mmol/L (20.0-31.0); Calcium 8.6 mg/dL (8.3-10.6); Chloride 105 mmol/L (98-107); Glucose 78 mg/dL (74-106); Potassium 3.8 mmol/L (3.5-5.1); Sodium 139 mmol/L (136-145); Total Protein 6.6 g/dL (5.7-8.2)
[2025-09-05] MEDS: amLODIPine 10 MG TAB PO (14:17)
[2025-09-05 15:01] VITALS: BP 137/81; PULSE 71
--- NOTE | 2025-09-05 17:37 | W.OBNST ---
Date of service: 09/05/25 Time of Service: 17:37 NST Evaluation Reason for NST Reasons for Nonstress Test: OTHER, SEE COMMENT Reason for NST Other: r/o labor Gestational Age Gestational Age in Weeks and Days: 37 Weeks and 3Days Test and Monitor Explained Test/Monitor Explained: Test Explained, Monitor Explained and Patient Verbalized Understanding Vital Signs Blood Pressure: 146/87 Pulse: 82 Temperature: 98.1 F NST Information Date on Monitor: 09/05/25 Time on Monitor: 12:12 NST Interventions: IV Fluids NST Evaluation Patient States Movement: Present FHR Baseline: 125 Variability: Moderate 6-25 bpm Accelerations: 15x15 Decelerations: None NST Results: Reactive Note Ultrasound Done: N/A. NST Note Note: Category 1 reactive NST. Patient received 1 L of IV fluids, 500 cc bolus for nausea along with Zofran. She did receive her dose of Procardia, 10 mg in light of that that she had taken her dose and vomited it. Her blood pressure remained stable. Laboratory studies are fairly normal with the exception of elevated white blood cell count and some dehydration. NST Reviewed and Verified by: Jacquie Ordonez
[2025-09-05 17:38] VITALS: BP 146/87; PULSE 82; TEMP 36.7
[2025-09-06 05:12] VITALS: BP 112/66; PULSE 93
== END 2025-09-05 15:08 ==
LOC: BCD 12:22 → OBS 12:28
PROVIDERS: PCP Student in an Organized Health Care Education/Training Program; Visit Provider Obstetrics & Gynecology
DX: O47.1 False labor at or after 37 completed weeks of gestation (principal); Z3A.37 37 weeks gestation of pregnancy; R11.0 Nausea
CPT/HCPCS: 80053; 96360; 96361; 59025; 85025; J2405

== ENCOUNTER 2025-09-08 07:16 | Outpatient (CLI) | payer MEDICAID, SELFPAY ==
[2025-09-08 09:05] VITALS: BP 137/76; PULSE 69; TEMP 36.6
[2025-09-08 09:10] VITALS: BP 137/76; PULSE 69
--- NOTE | 2025-09-08 09:53 | W.OBNST ---
Date of service: 09/08/25 Time of Service: 09:54 NST Evaluation Reason for NST Reasons for Nonstress Test: GESTATIONAL HYPERTENSION Gestational Age Gestational Age in Weeks and Days: 37 Weeks and 6Days Test and Monitor Explained Test/Monitor Explained: Test Explained and Monitor Explained Vital Signs Blood Pressure: 137/76 Pulse: 69 Temperature: 97.9 F Weight: 175 lb NST Information Date on Monitor: 09/08/25 Time on Monitor: 09:04 Date off Monitor: 09/08/25 Time off Monitor: 09:35 Total Time on Monitor: 31 NST Interventions: PO Hydration NST Evaluation Patient States Movement: Present FHR Baseline: 135 Variability: Moderate 6-25 bpm Accelerations: 15x15 Decelerations: None NST Results: Reactive Note Ultrasound Done: N/A. NST Note Note: Category 1, reactive, NST NST Reviewed and Verified by: Jacquie Ordonez
[2025-09-08 09:54] VITALS: BP 137/76; PULSE 69; TEMP 36.6
== END 2025-09-08 09:40 ==
LOC: BCD 07:16 → OBS 09:02
PROVIDERS: PCP Student in an Organized Health Care Education/Training Program; Visit Provider Obstetrics & Gynecology
DX: O13.3 Gestational [pregnancy-induced] hypertension without significant proteinuria, third trimester (principal); Z3A.37 37 weeks gestation of pregnancy
CPT/HCPCS: 59025

== ENCOUNTER 2025-09-12 00:42 | Outpatient (CLI) | payer MEDICAID, SELFPAY ==
[2025-09-12 11:39] LABS: Abs Immature Grans 0.23 10^3/uL (0.0-0.06); HCT 33.1 % (36.0-46.0); HGB 10.9 g/dL (11.2-15.7); Immature Grans % 1.7 %; MCH 29.8 pg (27.0-33.0); MCHC 32.9 % (32.0-36.0); MCV 90 fL (80-95); MPV 9.3 fL (8.0-11.0); Platelet Count 403 10^3/uL (130-400); RBC 3.66 10^6/uL (3.93-5.22); RDW 12.5 % (11.7-14.6); RDW-SD 41.2 fL; WBC 13.15 10^3/uL (4.4-10.8)
== END 2025-09-12 00:43 | disposition home or self-care (01) ==
LOC: LBO 00:42
PROVIDERS: PCP Student in an Organized Health Care Education/Training Program; Visit Provider Obstetrics & Gynecology
DX: Z34.93 Encounter for supervision of normal pregnancy, unspecified, third trimester (principal); Z01.818 Encounter for other preprocedural examination
CPT/HCPCS: 36415; 86850; 86900; 86901; 85025

== ENCOUNTER 2025-09-12 07:57 | Outpatient (CLI) | payer MEDICAID, SELFPAY ==
[2025-09-12 10:55] VITALS: BP 135/95; PULSE 79; TEMP 36.9
[2025-09-12 15:13] VITALS: BP 135/95; PULSE 79; TEMP 36.9
--- NOTE | 2025-09-12 15:13 | W.OBNST ---
Date of service: 09/12/25 Time of Service: 15:13 NST Evaluation Reason for NST Reasons for Nonstress Test: CHRONIC HYPERTENSION Gestational Age Gestational Age in Weeks and Days: 38 Weeks and 3Days Test and Monitor Explained Test/Monitor Explained: Test Explained Vital Signs Blood Pressure: 135/95 Pulse: 79 Temperature: 98.4 F Weight: 6.173 oz Urine Results Urine Protein: Negative Urine Ketones: Negative Urine Glucose: Negative Urine Blood: Negative NST Information Date on Monitor: 09/12/25 Time on Monitor: 10:40 Date off Monitor: 09/12/25 Time off Monitor: 11:00 Total Time on Monitor: 20 NST Interventions: None NST Evaluation Patient States Movement: Present FHR Baseline: 125 Variability: Moderate 6-25 bpm Accelerations: 15x15 Decelerations: None NST Results: Reactive Note Ultrasound Done: N/A. NST Note Note: Category 1, reactive NST NST Reviewed and Verified by: Jacquie Ordonez
== END 2025-09-12 11:22 | disposition home health service (06) ==
LOC: BCD 07:57 → OBS 10:43 → BCD 10:44 → OBS 10:53
PROVIDERS: PCP Student in an Organized Health Care Education/Training Program; Visit Provider Obstetrics & Gynecology
DX: O13.3 Gestational [pregnancy-induced] hypertension without significant proteinuria, third trimester (principal); Z3A.38 38 weeks gestation of pregnancy
CPT/HCPCS: 59025

== ENCOUNTER 2025-09-13 02:47 | Inpatient (IN) | payer MEDICAID, SELFPAY ==
[2025-09-13] VITALS (206 sets, daily range): BP systolic 114–154; BP diastolic 58–90; PULSE 43–146; RESP 16–18; TEMP 36.5–37.2; O2SAT 94–100
--- NOTE | 2025-09-13 | DI.US_ITS ---
Exam(s) US PELVIS LIMITED EXAM: US PELVIS LIMITED CLINICAL HISTORY: Postoperative tachycardia. TECHNIQUE: Transabdominal and transvaginal pelvic ultrasound was performed using standard protocol. COMPARISON: US US OB KEYANA WEIGHT from 08/16/2025 FINDINGS: This is a very limited examination of the pelvis. There is a trace amount of free fluid seen in the left adnexa. The uterus and ovaries were not adequately evaluated sonographically.The primary care provider, Dr. Ordonez was present at the bedside during the examination. IMPRESSION: 1. Trace amount of free fluid in the left adnexa. 2. This is a limited examination of the pelvis. DATA REPOSITORY:
[2025-09-13] MEDS: AZITHROMYCIN 500 MG in Normal Saline 250 ML 250 MG IVPB (06:47)
[2025-09-13] MEDS: Lactated Ringers 1,000 ML 200 ML IV (06:58)
[2025-09-13] MEDS: Sodium Citrate 30 ML CUP PO (07:21)
[2025-09-13] MEDS: ceFAZolin 2 GM/50 ML BAG IVPB (07:50)
--- NOTE | 2025-09-13 08:29 | PLAC_PTH ---
PATIENT: Alexandrea Bobo LOC: OBS U#:[id number] AGE/SX: 30/F ROOM: OBS.305 RE09/13/[address]: Jacqiue Ordonez DO : 1995 BED: A DIS: 09/15/2025 SPEC #: [id number] RECD: 09/13/25 12:56 STATUS: SOUDee Dee REQ #: [id number] NANY: 09/13/25 08:[address]: Jacquie Ordonez DEPT: Surgical Specimen RECD BY: Shayy Roper ENTERED: 09/13/25 12:56 SP TYPE: PLAC OTHR DR: Zain Ashton Tissues: 1 - PLACENTA (3RD TRIMESTER) Procedures: GROSS AND MICRO LEVEL 5 Comments: [id number]
--- NOTE | 2025-09-13 09:47 | PDOC.OPNB_ITS ---
Date of service: 09/13/25 Time of Service: 09:47 Operative Note Operative Note Delivery Method: Scheduled and Repeat Previous LT Incision: Yes DATE OF PROCEDURE: 09/13/25 PRE-OP DIAGNOSES: at 38 weeks POST-OP DIAGNOSES: same Chronic hypertension PROCEDURE: Repeat low-transverse section SURGEON: Jacquie Ordonez Assisting Surgeon: Miladys Heller Estimated blood loss (mL): 450 Pathology: other (Placenta) Complications: None Patient was transported to: floor Patient's condition: stable Indications: Prior x 2. Chronic hypertension Findings: Normal-appearing tubes, ovaries, uterus. Delivery of a viable female infant. Procedure Description: After full informed consent was obtained, patient was taken the operating suite and then IV running. She is placed in the seated position and spinal anesthesia administered. She is placed in dorsal supine position with leftward tilt and prepped and draped in the usual sterile fashion including a vaginal preparation. She had pneumatic compression stockings for DVT prophylaxis and received Ancef and Zithromax for surgical site infection prophylaxis. A timeout was held. A Pfannenstiel skin incision was made through her previous surgical scar and carried down to underlying fascia. The fascia was incised in the midline and extended laterally. The rectus muscles were identified and in the midline. The peritoneal incision was performed and extended superiorly and inferiorly. The bladder blade was inserted and the vesicouterine peritoneum was identified tented up and entered sharply. The bladder flap was created and the bladder blade reinserted. A low transverse uterine incision was made with a scalpel and extended bluntly laterally. The vertex was delivered without trauma. Shoulders followed without difficulty. There was a small click noted around the left scapular area which attention was brought to the pediatric team for evaluation. A three-vessel cord was noted and with the appropriate delayed cord clamping, clamped x 2 and cut. The baby was then handed off to the waiting pediatric team. At this point Cord blood sample was obtained and the placenta was manually expressed from the uterus. It was noted to be somewhat adhered in the posterior aspect of the uterus and somewhat calcified. It was sent for examination pathologically. At this point, the uterus is exteriorized and darrell red of all clot and debris. Uterine incision was closed using 0 Monocryl suture in a running locked fashion and a second layer being imbricating. The uterine incision was again reinspected and noted to be hemostatic. The uterus was returned to the abdomen. Abdomen irrigated with copious amounts of normal saline and again attention was turned to the uterine incision and surrounding areas ensuring hemostasis. At this point the fascial incision was closed using 0 Vicryl suture in a running fashion. Subcutaneous tissue irrigated with copious amounts of normal saline and subcu space reapproximated with 3-0 Vicryl in a simple interrupted fashion. 4-0 undyed Monocryl suture was used to close the incision and Mastisol with Steri-Strips were placed. Sterile dressing was placed. Uterus is firm and 3 cm below the umbilicus. Patient had a Barrios catheter draining clear yellow urine. She was taken to the center for recovery. EBL: 450 mL Fluids: Crystalloid per anesthesia Pathology: Placenta for examination Complications: None apparent Findings: Delivery of a viable female infant. Normal tubes, ovaries, uterus.
--- NOTE | 2025-09-13 11:46 | W.PM.OBPNV1 ---
Date of service: 09/13/25 Time of Service: 11:47 Assessment and Plan Assessment and plan (1) Syncope: Status: Chronic Assessment and plan: Patient had syncopal episode approximately 2 hours status post primary Baclawski episode of tachycardia associated. She is now currently awake, alert with stable vital signs and mildly tachycardic. Laboratory studies ordered ultrasound ordered to evaluate for hemoperitoneum. Anesthesia aware. Patient also had an episode of tachycardia immediately after spinal placement which resolved spontaneously. (2) Status post repeat low transverse section: Status: Acute Exam Physical Exam Vital signs: Temp Pulse Resp BP Pulse Ox 97.7 F 104 H 18 124/58 L 100 09/13/25 09:12 09/13/25 11:44 09/13/25 10:15 09/13/25 11:35 09/13/25 11:42 Narrative: Called acutely to the bedside for patient having a syncopal episode. She was feeling well and while breast-feeding became acutely tachycardic and presyncopal. Her head was lowered. Had a syncopal episode with maternal tachycardia in the 140s 150s. With repositioning, patient awoke and went up difficulty. Vital signs currently mildly tachycardic at 104 respiratory rate is 18 blood pressure stable at 124/58. Urine output since time of surgery has been approximately 400 cc. Her abdomen is soft and nontender. Will have stat laboratory studies including CBC coags and a stat bedside ultrasound to evaluate for potential hemoperitoneum for need for reoperation. Anesthesia notified for evaluation. Ultrasound notified for stat examination. Abdominal Exam Comments: Soft, no rigidity, no rebound, mild distention. Incision clean dry intact. Fundal Exam Fundus: Below Umbilicus and Firm Extremities Exam Extremity Exam: Normal; negative Calf Tenderness
--- NOTE | 2025-09-13 12:04 | W.PM.OBPNV1 ---
Date of service: 09/13/25 Time of Service: 12:04 Subjective Subjective Interval history: Patient seen. Doing better. Vitals are stable. Transcutaneous hemoglobin is 12.6. Bedside ultrasound shows a scant amount of fluid posterior to the uterus, and in the upper abdomen consistent with postsurgical changes. Labs are drawn for blood. Anesthesia aware. Will continue to monitor closely. Exam Physical Exam Vital signs: Temp Pulse Resp BP Pulse Ox 97.7 F 101 H 18 119/75 100 09/13/25 09:12 09/13/25 12:02 09/13/25 10:15 09/13/25 11:50 09/13/25 12:02
[2025-09-13 12:18] LABS: Abs Immature Grans 0.75 10^3/uL (0.0-0.06); HCT 27.4 % (36.0-46.0); HGB 9.2 g/dL (11.2-15.7); Immature Grans % 2.7 %; MCH 29.6 pg (27.0-33.0); MCHC 33.6 % (32.0-36.0); MCV 88 fL (80-95); MPV 9.5 fL (8.0-11.0); Platelet Count 463 10^3/uL (130-400); RBC 3.11 10^6/uL (3.93-5.22); RDW 12.5 % (11.7-14.6); RDW-SD 40.0 fL
[2025-09-13 12:34] LABS: RBC Morphology Normal; WBC 27.60 10^3/uL (4.4-10.8)
[2025-09-13 12:52] LABS: INR 1.0 (0.9-1.1); PTT Activated 22.7 sec (20.6-30.2); Prothrombin Time 9.8 sec (9.1-11.1)
--- NOTE | 2025-09-13 13:20 | NUR.NOTE ---
Pt with IBCLC at bedside around 11:15 am when IBCLC called primary RN to bedside. Upon entering the room, pt exhibiting extreme pallor and not responsive to name. Pulse had been elevated into the 140s/150s and provider aware immediately prior to incident. BP in progress at time of entry to room, 114/58.. RN rang for assist and requested OBGYN come to bedside. Head of bed lowered and pt legs shaken and name called. Pt responded at this time Hmm, what? SpO2 monitor remains in place and recording HR WNL throughout. OBGYN at bedside and pt exhibiting increasing responsiveness. Bleeding weighed for 90 mls since return to Center from OR. Pt fully responsive to provider and oriented x3. Bedside Hg via continuous pulse ox monitor 12.6. Provider ordered ultrasound of abdomen to check for free bleeding as well as stat labs. Anticipate consult with anesthesia team as well. Pt denies nausea at this time. Provider discussed likelihood of syncopal episode with pt and family and they present with no questions or concerns at this time. Nursing Note:
[2025-09-13] MEDS: ACETAMINOPHEN 1,000 MG/100 ML BAG 400 MG IVPB (14:35)
[2025-09-13] MEDS: Ketorolac 15 MG/ML VIAL IVP ×2 (15:04→22:08)
[2025-09-13] MEDS: oxyCODONE 5 MG TAB PO (20:00)
[2025-09-13] MEDS: Simethicone 80 MG CHEW PO (20:45)
[2025-09-13] MEDS: Lactated Ringers 1,000 ML 500 ML IV (21:15)
[2025-09-14] VITALS (11 sets, daily range): BP systolic 120–151; BP diastolic 64–100; PULSE 82–104; RESP 16–18; TEMP 36.6–39.6; O2SAT 98–100
[2025-09-14] MEDS: Acetaminophen 325 MG TAB 650 MG PO ×5 (02:18→21:27)
[2025-09-14] MEDS: oxyCODONE 5 MG TAB PO ×5 (02:18→21:27)
[2025-09-14] MEDS: Ketorolac 15 MG/ML VIAL IVP (05:16)
[2025-09-14] MEDS: Normal Saline Flush 10 ML SYR IVP (05:17)
[2025-09-14 07:08] LABS: Abs Immature Grans 0.38 10^3/uL (0.0-0.06); Immature Grans % 2.0 %; MCH 29.6 pg (27.0-33.0); MCHC 33.3 % (32.0-36.0); MCV 89 fL (80-95); MPV 9.7 fL (8.0-11.0); Platelet Count 416 10^3/uL (130-400); RBC 2.13 10^6/uL (3.93-5.22); RDW 12.6 % (11.7-14.6); RDW-SD 41.0 fL; WBC 19.13 10^3/uL (4.4-10.8)
[2025-09-14 07:38] LABS: ALT 15 U/L (10-49); AST 21 U/L (<34); Albumin 2.9 g/dL (3.2-5.0); Alkaline Phosphatase 123 U/L (46-116); Anion Gap 8.3 mmol/L (3-11); BUN 12 mg/dL (9-23); Bilirubin, Total 0.20 mg/dL (0.2-1.2); CO2 25.7 mmol/L (20.0-31.0); Calcium 8.5 mg/dL (8.3-10.6); Chloride 104 mmol/L (98-107); Glucose 97 mg/dL (74-106); HGB 6.3 g/dL (11.2-15.7); Potassium 4.1 mmol/L (3.5-5.1); Sodium 138 mmol/L (136-145); Total Protein 4.9 g/dL (5.7-8.2)
[2025-09-14 07:39] LABS: HCT 18.9 % (36.0-46.0)
[2025-09-14] MEDS: FLUoxetine 20 MG CAP PO (08:30)
[2025-09-14] MEDS: amLODIPine 10 MG TAB PO (08:30)
[2025-09-14] MEDS: buPROPion-XL 150 MG TABCR PO (08:31)
--- NOTE | 2025-09-14 08:58 | OBPPV_ITS ---
Date of service: 09/14/25 Time of Service: 08:58 Assessment and Plan Assessment and plan (1) Status post repeat low transverse section: Status: Acute Assessment and plan: Patient is postoperative day #1 status post repeat . Qualitatively, at the time of delivery her blood loss was appropriate, however she has a significant drop in her hemoglobin. She did have an episode of hypotension and syncope yesterday evening which resolved spontaneously. Her vital signs have remained appropriate. Her urine output is appropriate. I do not see signs of ongoing blood loss. In light of her drop in hemoglobin, I would recommend transfusion for enhanced wound healing, and quicker recovery. She accepts this. (2) Chronic hypertension: Status: Acute Assessment and plan: Will continue her Procardia and continue to monitor her blood pressure. Laboratory studies including CMP from yesterday were normal. (3) Postoperative anemia due to acute blood loss: Status: Acute Assessment and plan: Transfused 2 units of packed red blood cells. Repeat CBC posttransfusion. (4) Elevated white blood cell count: Status: Acute Assessment and plan: Elevated white blood cell count which has been chronic. In the past, she has been evaluated by hematology. No bone marrow sampling was done. No treatment was indicated at that point. Will continue to monitor this closely. Subjective Subjective Interval history: Patient is seen and examined this morning. The events of yesterday and last evening reviewed. Through the night, patient had stable vital signs with appropriate urine output. She did at 1 point report some right upper quadrant discomfort and shoulder discomfort which has now completely subsided. She perceives that this is related to gas and she is now passing flatus. In her workup and evaluation, she had laboratory studies including a CBC and a CMP. CMP is normal. Hemoglobin is significantly diminished from preoperative. Her hemoglobin this morning is 6.3. In light of this, we had a conversation regarding blood transfusion. She has no signs of ongoing blood loss. Her lochia is physiologic. We will transfuse 2 units of packed red blood cells, continue to monitor her vital signs appropriately, and repeat blood count posttransfusion. Patient's Mood: Good [place] baby status: Doing well and Nursing well Exam Physical Exam Vital signs: Temp Pulse Resp BP Pulse Ox 98.1 F 87 18 132/68 98 09/14/25 08:45 09/14/25 08:45 09/14/25 08:45 09/14/25 08:45 09/14/25 08:45 Vital Signs Reviewed: Yes Notable Details: Patient has a history of chronic hypertension and is on Procardia. She has Constitutional Constitutional: no acute distress and cooperative Comments: Feeling well. Pain is appropriate. Respiratory Exam Respiratory Exam: Normal Detail Cardiovascular Exam Cardiovascular: Present RRR, S1 and S2; Absent murmur Abdominal Exam Abdomen: Tender Comments: Mepilex in place. Mild distention. Good bowel sounds Fundal Exam Fundus: Below Umbilicus and Firm Neurological Exam Neurological Exam: Normal Psychiatric Exam Psychiatric Exam: Normal Results Hemoglobin/Hematocrit: Hgb 6.3 g/dL (11.2-15.7) L* D 09/14/25 06:26 Hct 18.9 % (36.0-46.0) L* 09/14/25 06:26 Abnormal Lab Findings: Abnormal Labs 09/13/25 09/14/25 09/14/25 12:05 06:26 08:44 WBC 27.60 H* 19.13 H RBC 3.11 L 2.13 L Hgb 9.2 L 6.3 L* D Hct 27.4 L 18.9 L* Plt Count 463 H 416 H Absolute Neutrophils 24.51 H 14.31 H Absolute Monocytes 1.36 H Alkaline Phosphatase 123 H Total Protein 4.9 L Albumin 2.9 L Crossmatch See Detail
[2025-09-14] MEDS: diphenhydrAMINE 25 MG CAP PO (10:55)
[2025-09-14] MEDS: Ibuprofen 600 MG TAB PO ×2 (12:53→19:02)
[2025-09-14] MEDS: Docusate Sodium 100 MG CAP PO (12:53)
[2025-09-14 14:41] LABS: Abs Immature Grans 0.32 10^3/uL (0.0-0.06); HCT 23.3 % (36.0-46.0); HGB 7.8 g/dL (11.2-15.7); Immature Grans % 1.8 %; MCH 29.3 pg (27.0-33.0); MCHC 33.5 % (32.0-36.0); MCV 88 fL (80-95); MPV 9.2 fL (8.0-11.0); Platelet Count 395 10^3/uL (130-400); RBC 2.66 10^6/uL (3.93-5.22); RDW 13.2 % (11.7-14.6); RDW-SD 42.1 fL; WBC 18.10 10^3/uL (4.4-10.8)
[2025-09-14 18:32] LABS: Abs Immature Grans 0.26 10^3/uL (0.0-0.06); HCT 24.0 % (36.0-46.0); HGB 8.0 g/dL (11.2-15.7); Immature Grans % 1.5 %; MCH 29.1 pg (27.0-33.0); MCHC 33.3 % (32.0-36.0); MCV 87 fL (80-95); MPV 9.1 fL (8.0-11.0); Platelet Count 390 10^3/uL (130-400); RBC 2.75 10^6/uL (3.93-5.22); RDW 13.5 % (11.7-14.6); RDW-SD 42.5 fL; WBC 17.28 10^3/uL (4.4-10.8)
--- NOTE | 2025-09-14 22:19 | W.PM.OBPNV1 ---
Date of service: 09/14/25 Time of Service: 22:19 Assessment and Plan Assessment and plan (1) History of delivery, currently : Status: Acute Assessment and plan: 30 yo s/p 38 wk RLTCS performed 09/13/2025 AM - Rh+ / Rub I / VZV I / GBS neg - complicated by cHTN (Amlodipine 10 mg qd), persistent ideopathic leukocytosis, h/o , bradycardia, persistent N/V, THC use - Intrapartum course uncomplicated - Post- course complicated by acute anemia (s/p 2U pRBC's from 09/14) - - Ambulating / Urinating / Passing flatus / Eating - Contraception planning: interested in IUD - Narcotic counseling pending - PPD counseling pending - Discharge planning: Anticipate tomorrow (09/15) afternoon - - - - - - - - - - - - - - - - 09/14/2025 AM (José Luis): Patient is seen and examined this morning. The events of yesterday and last evening reviewed. Through the night, patient had stable vital signs with appropriate urine output. She did at 1 point report some right upper quadrant discomfort and shoulder discomfort which has now completely subsided. She perceives that this is related to gas and she is now passing flatus. In her workup and evaluation, she had laboratory studies including a CBC and a CMP. CMP is normal. Hemoglobin is significantly diminished from preoperative. Her hemoglobin this morning is 6.3. In light of this, we had a conversation regarding blood transfusion. She has no signs of ongoing blood loss. Her lochia is physiologic. We will transfuse 2 units of packed red blood cells, continue to monitor her vital signs appropriately, and repeat blood count posttransfusion. Patient is postoperative day #1 status post repeat . Qualitatively, at the time of delivery her blood loss was appropriate, however she has a significant drop in her hemoglobin. She did have an episode of hypotension and syncope yesterday evening which resolved spontaneously. Her vital signs have remained appropriate. Her urine output is appropriate. I do not see signs of ongoing blood loss. In light of her drop in hemoglobin, I would recommend transfusion for enhanced wound healing, and quicker recovery. She accepts this. 09/14/2025 PM ([place]ron): Patient found resting comfortably in her bed. She is in good spirits. She had several inquiries regarding her lab work and blood pressures. She denies any signs or symptoms of preeclampsia, and her preeclamptic workup up to this point has been unassuming. We had an extensive conversation regarding her clinical course. I highly suspect that this modest increase in her blood pressures from the time of delivery is related to fluid shifts and exacerbation of chronic hypertension; I do not believe this patient is trending into preeclampsia based on her overall clinical picture and its overall reassuring setting. However, I did advise the patient that we would be watching her blood pressures very closely, and that I would have a low threshold for treating for preeclampsia if concerns arise. Amlodipine to be increased if she continues to have borderline blood pressures. We also discussed her need for blood transfusion. While her drop from 9-6 is impressive, the patient's lochia has been appropriate, she exhibits no signs or symptoms of hemodynamic instability, her abdomen has been very reassuring, and the course of her section was without issue. I do not suspect excessive blood loss, especially because she had a presyncopal episode immediately following the section and workup did not reveal any evidence of concerning bleeding. I suspect that the drop in her hemoglobin is due to an appropriate drop in hemoglobin exacerbated in the labs by changes in fluid status (dehydrated versus hydrated). Her post transfusion hemoglobins have been stable and reassuring, and her platelets have been appropriate. We will repeat a CBC in the morning and reassess at that time. - - - - - - - - - - - - - - - - Exam Physical Exam Vital signs: Temp Pulse Resp BP Pulse Ox 98.1 F 95 H 18 151/93 H 100 09/14/25 15:08 09/14/25 15:08 09/14/25 15:08 09/14/25 15:08 09/14/25 15:08 Narrative: general: Well nourished female in no immediate distress pulm: No overt respiratory distress abd: Non-distended, incision clean and covered ext: No swelling psych: Calm and appropriate Results Hemoglobin/Hematocrit: Hgb 8.0 g/dL (11.2-15.7) L 09/14/25 18: Hct 24.0 % (36.0-46.0) L 09/14/25 18:25 Abnormal Lab Findings: Abnormal Labs 1209/14/25 09/14/25 12:05 06:26 09:40 WBC 27.60 H* 19.13 H RBC 3.11 L 2.13 L Hgb 9.2 L 6.3 L* D Hct 27.4 L 18.9 L* Plt Count 463 H 416 H Absolute Neutrophils 24.51 H 14.31 H Absolute Monocytes 1.36 H Alkaline Phosphatase 123 H Total Protein 4.9 L Albumin 2.9 L Crossmatch See Detail 09/14/25 09/14/25 14:28 18:25 WBC 18.10 H 17.28 H RBC 2.66 L 2.75 L Hgb 7.8 L 8.0 L Hct 23.3 L 24.0 L Plt Count Absolute Neutrophils 13.81 H 12.61 H Absolute Monocytes 1.45 H 1.47 H Alkaline Phosphatase Total Protein Albumin Crossmatch
[2025-09-15] MEDS: Docusate Sodium 100 MG CAP PO ×2 (00:40→08:26)
[2025-09-15] MEDS: Ibuprofen 600 MG TAB PO ×2 (00:40→08:26)
[2025-09-15 01:00] VITALS: BP 142/95; PULSE 79; RESP 17; TEMP 36.6; O2SAT 98
[2025-09-15] MEDS: Acetaminophen 325 MG TAB 650 MG PO ×3 (01:43→09:33)
[2025-09-15] MEDS: oxyCODONE 5 MG TAB PO ×3 (01:43→09:33)
[2025-09-15 05:45] VITALS: BP 158/97; PULSE 72
[2025-09-15 07:16] LABS: Abs Immature Grans 0.29 10^3/uL (0.0-0.06); HCT 22.6 % (36.0-46.0); HGB 7.5 g/dL (11.2-15.7); Immature Grans % 2.4 %; MCH 29.3 pg (27.0-33.0); MCHC 33.2 % (32.0-36.0); MCV 88 fL (80-95); MPV 9.7 fL (8.0-11.0); Platelet Count 416 10^3/uL (130-400); RBC 2.56 10^6/uL (3.93-5.22); RDW 13.7 % (11.7-14.6); RDW-SD 44.5 fL; WBC 12.28 10^3/uL (4.4-10.8)
[2025-09-15] MEDS: amLODIPine 10 MG TAB 12.5 MG PO (08:24)
[2025-09-15] MEDS: FLUoxetine 20 MG CAP PO (08:26)
[2025-09-15] MEDS: buPROPion-XL 150 MG TABCR PO (08:26)
[2025-09-15 08:32] VITALS: BP 146/89; PULSE 87; TEMP 36.6
--- NOTE | 2025-09-15 11:58 | DSE_ITS ---
Date of service: 09/15/25 Time of Service: 11:59 DS: Diagnosis Discharge Diagnosis (1) History of delivery, currently : Status: Acute Discharge Plan Disposition Patient Disposition: Home Condition: Good Discharge Details Reason For Visit: Delivery Admit Date/Time: 09/13/25 02:47 Admit Provider: Jacquie Ordonez Attending Provider: Jacquie Ordonez Primary Care Provider: Zain Ashton Hospital Course Hospital Course: 30 yo s/p 38 wk RLTCS performed 09/13/2025 AM - Rh+ / Rub I / VZV I / GBS neg - complicated by cHTN (Amlodipine 12.5 mg qd), persistent ideopathic leukocytosis, h/o , bradycardia, persistent N/V, THC use - Intrapartum course uncomplicated - Post- course complicated by acute anemia (s/p 2U pRBC's from 09/14) - - Meeting all milestones - Last pap smear 03/02/2025: neg cytology, neg HPV - Contraception planning: interested in IUD - Counseled on pelvic rest for a full 8 weeks - Patient counseled on addictive potential of narcotics and encouraged to use sparingly and to discard unused medication - Counseled on signs symptoms of depression and encouraged to have low threshold for reaching out for immediate medical assessment if concerns arise; of note, patient has history of anxiety and depression and reports fluoxetine and Wellbutrin are traditionally doubled as she enters the winter season. Doubled prescription (40 mg Fluoxetine & 300 mg Wellbutrin) provided for her at discharge. - - - - - - - - - - - - - - - - 09/14/2025 AM (José Luis): Patient is seen and examined this morning. The events of yesterday and last evening reviewed. Through the night, patient had stable vital signs with appropriate urine output. She did at 1 point report some right upper quadrant discomfort and shoulder discomfort which has now completely subsided. She perceives that this is related to gas and she is now passing flatus. In her workup and evaluation, she had laboratory studies including a CBC and a CMP. CMP is normal. Hemoglobin is significantly diminished from preoperative. Her hemoglobin this morning is 6.3. In light of this, we had a conversation regarding blood transfusion. She has no signs of ongoing blood loss. Her lochia is physiologic. We will transfuse 2 units of packed red blood cells, continue to monitor her vital signs appropriately, and repeat blood count posttransfusion. Patient is postoperative day #1 status post repeat . Qualitatively, at the time of delivery her blood loss was appropriate, however she has a significant drop in her hemoglobin. She did have an episode of hypotension and syncope yesterday evening which resolved spontaneously. Her vital signs have remained appropriate. Her urine output is appropriate. I do not see signs of ongoing blood loss. In light of her drop in hemoglobin, I would recommend transfusion for enhanced wound healing, and quicker recovery. She accepts this. 09/14/2025 PM (Arron): Patient found resting comfortably in her bed. She is in good spirits. She had several inquiries regarding her lab work and blood pressures. She denies any signs or symptoms of preeclampsia, and her preeclamptic workup up to this point has been unassuming. We had an extensive conversation regarding her clinical course. I highly suspect that this modest increase in her blood pressures from the time of delivery is related to p ostpartum fluid shifts and exacerbation of chronic hypertension; I do not believe this patient is trending into preeclampsia based on her overall clinical picture and its overall reassuring setting. However, I did advise the patient that we would be watching her blood pressures very closely, and that I would have a low threshold for treating for preeclampsia if concerns arise. Amlodipine to be increased if she continues to have borderline blood pressures. We also discussed her need for blood transfusion. While her drop from 9-6 is impressive, the patient's lochia has been appropriate, she exhibits no signs or symptoms of hemodynamic instability, her abdomen has been very reassuring, and the course of her section was without issue. I do not suspect excessive blood loss, especially because she had a presyncopal episode immediately following the section and workup did not reveal any evidence of concerning bleeding. I suspect that the drop in her hemoglobin is due to an appropriate drop in hemoglobin exacerbated in the labs by changes in fluid status (dehydrated versus hydrated). Her post transfusion hemoglobins have been stable and reassuring, and her platelets have been appropriate. We will repeat a CBC in the morning and reassess at that time. - - - - - - - - - - - - - - - - 09/15/2025 ([facility] Summary): Patient presented to [facility] to labor and delivery on 09/13/2025 for scheduled repeat low-transverse section which was performed without issue. Of note, patient had changed her mind regarding tubal ligation and a tubal ligation was NOT performed with her procedure. She has expressed interest in an IUD . Her recovery course was remarkable for asymptomatic, acute anemia noted on postop day 1 (hemoglobin of 6.3). She received 2 units of packed red blood cells and hemoglobin stabilized. Platelets remained appropriate. Over the course of her stay, her blood pressures also modestly increased (though they state outside of severe range). Following thorough assessment, it was determined that her modest increase was likely physiologic/related to an exacerbation of chronic hypert ension; this was successfully addressed with an increase in her amlodipine dosing from 10 mg to 12.5. Patient was thoroughly counseled on signs symptoms of preeclampsia encouraged have a low threshold for seeking immediate medical attention if concerns arise. She was scheduled for a blood pressure check in 2 days from discharge. Today, the patient is found to be doing very well. She is in very good spirits and has an independent and strong interest in discharge. She was extensively counseled as above. She is noted be meeting all milestones. She is discharged with instructions for close follow-up. - - - - - - - - - - - - - - - - Home Meds and New Rx's Prescriptions: New amlodipine 10 mg Tablet 12.5 mg PO DAILY Qty: 90 0RF docusate sodium [Colace] 100 mg Capsule 100 mg PO BID PRN PRNQty: 30 0RF ibuprofen 600 mg Tablet 600 mg PO Q6H PRN PRNQty: 30 0RF fluoxetine 20 mg Capsule 40 mg PO DAILY Qty: 90 0RF oxycodone 5 mg Tablet 5 mg PO Q6H PRN PRNQty: 10 0RF bupropion HCl 150 mg Tablet Extended Release 24 Hr 300 mg PO QAM Qty: 90 0RF ferrous sulfate [FeroSul] 325 mg (65 mg iron) tablet 325 mg PO DAILY 30 Days Qty: 30 0RF Continued flu vac ts 2024-(6mos up)-PF 45 mcg (15 mcg x 3)/0.5 mL syringe 0.5 ml IM ONCE Qty: 0.5 0RF Discontinued aspirin 81 mg tablet,delayed release (DR/EC) 162 mg PO DAILY Qty: 60 5RF bupropion HCl [Wellbutrin XL] 150 mg tablet extended release 24 hr 150 mg PO QAM Qty: 30 1RF ondansetron 8 mg tablet,disintegrating 8 mg PO Q8H 30 Days Qty: 90 2RF amlodipine 10 mg tablet 10 mg PO DAILY promethazine 25 mg suppository 25 mg [place] Q6H PRN (Reason: nausea and vomiting) 30 Days Qty: 24 5RF fluoxetine 20 mg capsule 20 mg PO DAILY Qty: 30 1RF Discharge Instructions Instructions: What to Watch for After You Have a Baby, Normal Bleeding After Having a Baby, Exercises, Taking Care of Yourself After You Have a Baby Additional Instructions: ? Eat a well-rounded diet ? Ambulate regularly and engage in light activity while avoiding repeated heavy lifting (over 10 pounds) ? Take your medications as prescribed ? Please be sure to attend your follow-up visits ? If you have an incision, be sure to keep it clean and dry using simple soap and water; avoid scrubbing to avoid damage to suture ? If you have been prescribed narcotics such as tramadol or oxycodone or [place], please note these medications have an addictive potential and should be used sparingly.? Please discard of any leftover medication either with your local pharmacy or by flushing the medication.? Do not share these medications with other individuals, and have a low threshold for seeking immediate medical evaluation if you experience any sleepiness, headaches, or any other concerns while using these medications. ? Please do not insert anything vaginally, including but not limited to, tampons, douching, or sexual intercourse, for a full 8 weeks and/or until you are medically cleared. ? If you have any concerns including fevers/chills, lightheadedness, visual changes, persistent headaches unresponsive to Tylenol, persistent nausea/vomiting, persistent abdominal pain, bruising and or leakage from your incision sites, excessive vaginal bleeding, or any other concerns, please have a low threshold for seeking immediate medical evaluation and/or reaching out to o clinic at [phone]. ? If you find yourself having crying spells you cannot explain, loss of appetite, persistent inability to sleep, lack of bonding with your baby, and/or general and persistent sadness, please feel free to reach out to our clinic immediately at [phone]. Stand Alone Forms: BC Discharge Instruc, Portal Information Activity:: pelvic rest x 8 weeks Equipment/Supplies:: No Equipment Needed Diet:: Normal Diet Discharge Orders Discharge Orders: Discharge Order (Routine); Ordered 09/15/25 Ordered By: Miladys Heller Discharge Data Discharge Date/Time-TO BE ENTERED AT DEPARTURE: 09/15/25 13:32 OB:DS Summary Contraception Discussed Contraception Discussed: Yes, [place] Gender-Baby A: Female weight: 7 lb 1.759 oz Status at Discharge Functional status at discharge: independent ambulation Overall status at discharge: patient is not back to baseline Mental Status: mental status grossly normal Speech and Movement: speech and movement normal Mood: congruent mood Affect: normal affect Exam Physical Exam Vital signs: Temp Pulse Resp BP Pulse Ox 97.9 F 87 17 146/89 H 98 09/15/25 08:32 09/15/25 08:32 09/15/25 01:00 09/15/25 08:32 09/15/25 01:00 PFSH All Active Problems Elevated white blood cell count (Acute) Status post repeat low transverse section (Acute) Repeat section 09/13/2025 female . Chronic hypertension (Acute) Gestational hypertension (Acute) Nausea/vomiting in (Acute) Anxiety (Chronic) Chronic hypertension during (Acute) Elevated platelet count (Acute) Elevated liver enzymes (Acute) History of pre-eclampsia in prior , currently (Acute) Marijuana use during (Acute) History of delivery, currently (Acute) (Acute) Medical History Early stage of Bradycardia Depression 2018 . 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 herniation of nucleus pulposis vs residual scaring from previous disk surgery. [place] [facility] [place]. Will need to f/u in pain clinic PP for eval of pain. delivery delivered 02/12/19. At term secondary to severe BP, H/A remote from delivery. Preeclampsia in period 11/05/2017. Treated with labetalol several weeks . 02/11/19. Presented in labor with elevated blood pressure. Rx MgSO4 and Labetalol PP. Bradycardia 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/2013) HR 40-60 BPM Surgical History Spinal L4and L5 repair S/P section Family History Mother Essential hypertension Hypothyroidism Mental disorder Anxiety and depression-Therapy and ? meds Father Substance abuse ?? 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 Date GA/Weeks # Preg Succ Route Wgt Sex Labor Lgth Anesth esia Location [facility] 11/05/17 37 No Yes vaginal 6 lb 5 oz Male 2 hrs [facility], [place] 02/12/19 36 No Yes 5 lb 2 oz Female [facility], Dr. Cintron 09/13/25 38 Yes 7 lb 1.759 oz Female Rolando Ordonez Delivery Date: 11/05/17 Last Updated by: Izabella Smith Precip'ed, RN delivered, [place], labetalol for a couple of months Delivery Date: 02/12/19 Last Updated by: Izabella Smith Severe range BP, no response to IV meds, no labor, went to [facility]. Labetalol for 6 months. Delivery Date: 09/13/25 Last Updated by: Nusrat Lange RN Pre-Eclampsia DS: Data Vitals/I&O Vitals and I&O: Vital Signs Temperature 97.9 F 09/15/25 08:32 Temperature Source Oral 09/15/25 08:32 Pulse 87 09/15/25 08:32 Pulse Rhythm Regular 09/15/25 08:38 Respiratory Rate 17 09/15/25 01:00 Blood Pressure 146/89 H 09/15/25 08:32 Blood Pressure Mean 108 09/15/25 08:32 Pulse Oximetry 98 09/15/25 01:00 Oxygen Delivery Method Room Air 09/14/25 15:08 Oxygen Flow Rate 0 09/14/25 15:08 Pain Level 3 09/14/25 13:53 Comment Patient sitting semi fowlers in bed at time of VS assessment. 09/15/25 01:00 Intake & Output 09/14/25 09/14/25 09/15/25 11:59 23:59 11:59 Intake Total 500 / 1250 750 / 1250 Output Total 1500 / 2900 1400 / 2900 Balance -1000 / -1650 -650 / -1650 Intake: IV 500 / 500 Blood Product 750 / 750 Rbc Leuko Reduced Unit 250 / 250 [id number] Rbc Leuko Reduced Unit 500 / 500 [id number] Output: Urine 1500 / 2900 1400 / 2900 Other: Urine Color Pale Yellow Yellow Data Completed and Pending Pending Labs at Discharge: 09/13/25 09/14/25 09/14/25 12:05 06:26 08:51 WBC 27.60 H* 19.13 H RBC 3.11 L 2.13 L Hgb 9.2 L 6.3 L* D Hct 27.4 L 18.9 L* MCV 88 89 MCH 29.6 29.6 MCHC 33.6 33.3 RDW 12.5 12.6 Plt Count 463 H 416 H MPV 9.5 9.7 Immature Gran % 2.7 2.0 Neutrophils % 88.8 74.8 Lymphocytes % 5.0 14.3 Monocytes % 2.9 7.1 Eosinophils % 0.3 1.4 Basophils % 0.3 0.4 Nucleated RBC % 0.0 0.0 Absolute Neutrophils 24.51 H 14.31 H Absolute Lymphocytes 1.38 2.74 Absolute Monocytes 0.80 1.36 H Absolute Eosinophils 0.08 0.27 Absolute Basophils 0.08 0.08 RBC Morphology Normal PT 9.8 INR 1.0 APTT 22.7 Sodium 138 Potassium 4.1 Chloride 104 Carbon Dioxide 25.7 Anion Gap 8.3 BUN 12 Creatinine 0.69 Est GFR (CKD-EPI 2020) 100.35 Glucose 97 Calcium 8.5 Total Bilirubin 0.20 AST 21 ALT 15 Alkaline Phosphatase 123 H Total Protein 4.9 L Albumin 2.9 L Ur Random Creatinine 53.40 U Random Total Protein < 6.0 U [place] Prot/Creat Ratio ABO/Rh Antibody Screen Crossmatch 09/14/25 09/14/25 09/14/25 09:40 14:28 18:25 WBC 18.10 H 17.28 H RBC 2.66 L 2.75 L Hgb 7.8 L 8.0 L Hct 23.3 L 24.0 L MCV 88 87 MCH 29.3 29.1 MCHC 33.5 33.3 RDW 13.2 13.5 Plt Count 395 390 MPV 9.2 9.1 Immature Gran % 1.8 1.5 Neutrophils % 76.3 73.0 Lymphocytes % 12.4 14.9 Monocytes % 8.0 8.5 Eosinophils % 1.2 1.6 Basophils % 0.3 0.5 Nucleated RBC % 0.0 0.0 Absolute Neutrophils 13.81 H 12.61 H Absolute Lymphocytes 2.24 2.57 Absolute Monocytes 1.45 H 1.47 H Absolute Eosinophils 0.22 0.28 Absolute Basophils 0.05 0.09 RBC Morphology PT INR APTT Sodium Potassium Chloride Carbon Dioxide Anion Gap BUN Creatinine Est GFR (CKD-EPI 2020) Glucose Calcium Total Bilirubin AST ALT Alkaline Phosphatase Total Protein Albumin Ur Random Creatinine U Random Total Protein U [place] Prot/Creat Ratio ABO/Rh A Positive Antibody Screen NEGATIVE Crossmatch See Detail 09/15/25 06:02 WBC 12.28 H RBC 2.56 L Hgb 7.5 L Hct 22.6 L MCV 88 MCH 29.3 MCHC 33.2 RDW 13.7 Plt Count 416 H MPV 9.7 Immature Gran % 2.4 Neutrophils % 66.7 Lymphocytes % 19.1 Monocytes % 8.7 Eosinophils % 2.5 Basophils % 0.6 Nucleated RBC % 0.0 Absolute Neutrophils 8.19 H Absolute Lymphocytes 2.35 Absolute Monocytes 1.07 H Absolute Eosinophils 0.31 Absolute Basophils 0.07 RBC Morphology PT INR APTT Sodium Potassium Chloride Carbon Dioxide Anion Gap BUN Creatinine Est GFR (CKD-EPI 2020) Glucose Calcium Total Bilirubin AST ALT Alkaline Phosphatase Total Protein Albumin Ur Random Creatinine U Random Total Protein U [place] Prot/Creat Ratio ABO/Rh Antibody Screen Crossmatch
== END 2025-09-15 13:32 | disposition home or self-care (01) | DRG 787 ==
PROVIDERS: Obstetrics & Gynecology; Admitting Provider Obstetrics & Gynecology; PCP Student in an Organized Health Care Education/Training Program; Visit Provider Obstetrics & Gynecology
PROC: 10D00Z1 Extraction of Products of Conception, Low, Open Approach (ICD-10-PCS; CPT 59514; principal; 2025-09-13 07:30)
DX: O34.211 Maternal care for low transverse scar from previous cesarean delivery (principal); D62 Acute posthemorrhagic anemia; O10.92 Unspecified pre-existing hypertension complicating childbirth; O99.324 Drug use complicating childbirth; O99.12 Other diseases of the blood and blood-forming organs and certain disorders involving the immune mechanism complicating childbirth; Z37.0 Single live birth; N85.8 Other specified noninflammatory disorders of uterus; F12.90 Cannabis use, unspecified, uncomplicated; R00.1 Bradycardia, unspecified; Z3A.38 38 weeks gestation of pregnancy; R11.2 Nausea with vomiting, unspecified; O75.4 Other complications of obstetric surgery and procedures; R00.0 Tachycardia, unspecified; I95.81 Postprocedural hypotension; O90.81 Anemia of the puerperium; D72.829 Elevated white blood cell count, unspecified
CPT/HCPCS: 59514; 36415; 36430; 76857; 80053; 86850; 86900; 86901; 86920; 82565; 84156; 85025; 85610; 85730; 88307; J0131; J0456; J0665; J0690; J1100; J1885; J2274; J2371; J2405; J3010; P9016

== ENCOUNTER 2025-09-17 09:17 | Outpatient (CLI) | payer MEDICAID, SELFPAY ==
[2025-09-17 11:00] VITALS: BP 145/92; PULSE 94; RESP 16; TEMP 36.6
== END 2025-09-17 11:10 ==
LOC: BCD 09:18
PROVIDERS: PCP Student in an Organized Health Care Education/Training Program; Visit Provider Obstetrics & Gynecology
DX: O99.03 Anemia complicating the puerperium (principal)
CPT/HCPCS: 99211